=== PATIENT | male | born 1960 | race African-American/Black ===

== ENCOUNTER 2018-03-19 08:24 | Inpatient (IN) | payer OTHER ==
[2018-03-19 08:53] VITALS: BMI 33.3
--- NOTE | 2018-03-19 09:41 | HP ---
CIWA Score - CIWA Score Nausea/Vomitin Muscle Tremors: 3 Anxiety: 2 Agitation: 2 Paroxysmal Sweats: 1-Minimal Palms Moist Orientation: 0-Oriented Tacttile Disturbances: 2-Mild Itch/Numbness/Burn Auditory Disturbances: 1-Very Mild Visual Disturbances: 1-Very Mild Sensitivity Headache: 2-Mild CIWA-Ar Total Score: 17 Admission ROS BHS - HPI Chief Complaint: i need help to stop drinking alcohol,pcp,and heroin abused Allergies/Adverse Reactions: Allergies Allergy/AdvReac Type Severity Reaction Status Date / Time No Known Allergies Allergy Verified 03/19/18 09:25 History of Present Illness: this 58 years old male with alcohol and pcp dependence and heroin abused, seeking detox,hase been attending out patient program, withdrawal symptom,last treatment at [facility] in 11/09 not completed borderlined htn no med nicotine dependence no significant period of sobriety bipolar disorder,no medication Exam Limitations: No Limitations - Ebola screening Have you traveled outside of the country in the last 21 days: No Have you had contact with anyone from an Ebola affected area: No Have you been sick,other than usual withdrawal symptoms: No Do you have a fever: No - Review of Systems Constitutional: Chills, Loss of Appetite, Malaise, Night Sweats, Changes in sleep, Weakness EENT: reports: Nose Congestion Respiratory: reports: No Symptoms reported Cardiac: reports: Palpitations GI: reports: Diarrhea, Nausea, Abdominal cramping : reports: No Symptoms Reported Musculoskeletal: reports: Back Pain, Joint Pain, Muscle Pain Integumentary: reports: Dryness Neuro: reports: Headache, Tremors Endocrine: reports: No Symptoms Reported Hematology: reports: No Symptoms Reported Psychiatric: reports: Judgement Intact, Mood/Affect Appropiate, Orientated x3 ( bipolar disorder), Anxious, Depressed Patient History - Patient Medical History Hx Anemia: No Hx Asthma: No Hx Chronic Obstructive Pulmonary Disease (COPD): No Hx Cancer: No Hx Cardiac Disorders: No Hx Congestive Heart Failure: No Hx Hypertension: Yes (not on meds) Hx Hypercholesterolemia: No Hx Pacemaker: No HX Cerebrovascular Accident: No Hx Seizures: No Hx Dementia: No Hx Diabetes: No Hx Gastrointestinal Disorders: No Hx Liver Disease: No Hx Genitourinary Disorders: No Hx Sexually Transmitted Disorders: No Hx Renal Disease (ESRD): No Hx Thyroid Disease: No Hx Human Immunodeficiency Virus (HIV): No (NEGATIVE HX last 2016) Hx Hepatitis C: No Hx Depression: Yes (no meds) Hx Suicide Attempt: No (DENIES) Hx Bipolar Disorder: Yes Hx Schizophrenia: No Other Medical History: no suicidal,no homicidal, - Patient Surgical History Past Surgical History: No Hx Neurologic Surgery: No Hx Cataract Extraction: No Hx Cardiac Surgery: No Hx Lung Surgery: No Hx Breast Surgery: No Hx Breast Biopsy: No Hx Abdominal Surgery: No Hx Appendectomy: No Hx Cholecystectomy: No Hx Genitourinary Surgery: No Hx Section: No Hx Orthopedic Surgery: No Anesthesia Reaction: No - PPD History Date: 09/23/16 ([facility]) Results: 0 mm PPD to be Administered?: Yes - Smoking Cessation Smoking history: Current every day smoker Have you smoked in the past 12 months: Yes Aproximately how many cigarettes per day: 20 Hx Chewing Tobacco Use: No Initiated information on smoking cessation: Yes 'Breaking Loose' booklet given: 03/19/18 - Substance & Tx. History Hx Alcohol Use: Yes Hx Substance Use: Yes Substance Use Type: Alcohol, Opiates Hx Substance Use Treatment: Yes (promtoma 10/10 not completed) - Substances Abused Alcohol-beer Route: Oral Frequency: Daily Amount used: 1 case Age of first use: 12 Date of Last Use: 03/17/18 Heroin Route: Inhalation Frequency: 1-2 times per week Amount used: 2-3 bags Age of first use: 19 Date of Last Use: 03/17/18 PCP Route: Smoking Frequency: Daily Amount used: $20-30 Age of first use: 19 Date of Last Use: 03/17/18 Family Disease History - Family Disease History Family Disease History: Diabetes: Mother, Heart Disease: Mother, Other: Father ( alc and drugs ), Sister (alc and drugs ) Admission Physical Exam BHS - Vital Signs Vital Signs: Vital Signs - 24 hr 03/19/18 08:50 Temperature 97.7 F Pulse Rate 81 Respiratory 19 Rate Blood Pressure 144/82 - Physical General Appearance: Yes: Moderate Distress, Tremorous, Irritable, Sweating, Anxious HEENTM: Yes: Hearing grossly Normal, YANET, Pharynx Normal Respiratory: Yes: Lungs Clear, Normal Breath Sounds, No Respiratory Distress Neck: Yes: Within Normal Limits, Supple, Trachea in good position Breast: Yes: Breast Exam Deferred Cardiology: Yes: Within Normal Limits, Regular Rhythm, Regular Rate, S1, S2 Abdominal: Yes: Within Normal Limits, Normal Bowel Sounds, Non Tender, Flat, Soft Genitourinary: Yes: Within Normal Limits Back: Yes: Within Normal Limits, Normal Inspection, Muscle Spasm Musculoskeletal: Yes: Joint Stiffness, Muscle Pain Extremities: Yes: Tremors Neurological: Yes: lip cutter and scorer II-XII NML intact, Fully Oriented, Alert, Motor Strength 5/5 Integumentary: Yes: Dry Lymphatic: Yes: Within Normal Limits - Diagnostic (1) Alcohol dependence with uncomplicated withdrawal Current Visit: No Status: Chronic (2) PCP (phencyclidine) abuse Current Visit: Yes Status: Acute (3) Nicotine dependence Current Visit: No Status: Acute Qualifiers: Nicotine product type: cigarettes Substance use status: in withdrawal Qualified Code(s): F17.213 - Nicotine dependence, cigarettes, with withdrawal (4) Heroin abuse Current Visit: Yes Status: Acute (5) Hypertension Current Visit: Yes Status: Acute (6) Bipolar disorder Current Visit: Yes Status: Acute Cleared for Admission [facility] - Detox or Rehab [facility] Level of Care: Medically Managed Detox Regimen/Protocol: Librium (patient use heroin twice a week,did not want methadone) [facility] Breath Alcohol Content Breath Alcohol Content: 0 Urine Drug Screen - Results Drug Screen Negative: No Urine Drug Screen Results: OPI-Opiates
[2018-03-19] MEDS ORDERED: guaiFENesin/D-METHORPHAN HB 10 ML UNIT-DOSE CUPS PO PRN (09:49)
[2018-03-19] MEDS ORDERED: hydrOXYzine PAMOATE 50 MG CAPSULE (FP) PO PRN (09:49)
[2018-03-19] MEDS ORDERED: ACETAMINOPHEN 325 MG TABLET (FP) PO PRN (09:49)
[2018-03-19] MEDS ORDERED: MAGNESIUM CITRATE 300 ML BOTTLE PO PRN (09:49)
[2018-03-19] MEDS ORDERED: MAGNESIUM HYDROX 2400MG/30ML ORAL SUSPENSION 30 ML CUP PO PRN (09:49)
[2018-03-19] MEDS ORDERED: chlordiazePOXIDE HCL 25 MG CAPSULE PO PRN (09:49)
[2018-03-19] MEDS ORDERED: P-EPHED 60MG/TRIPROLIDI 2.5MG TABLET PO PRN (09:49)
[2018-03-19] MEDS ORDERED: IBUPROFEN 400 MG TABLET (FP) PO PRN (09:49)
[2018-03-19] MEDS ORDERED: MAG HYDROX/AL HYDROX/SIMETH 30 ML UNIT-DOSE CUP PO PRN (09:49)
[2018-03-19] MEDS ORDERED: MENTHOL/PHENOL 1 EACH UD MM PRN (09:49)
[2018-03-19] MEDS ORDERED: LOPERAMIDE HCL 2 MG CAPSULE PO PRN (09:49)
[2018-03-19] MEDS: chlordiazePOXIDE HCL 25 MG CAPSULE PO SCH ×3 (11:44→23:06)
[2018-03-19] MEDS: PRENATAL VITAMINS W/ FOLIC ACID TABLET (FP) PO SCH (11:45)
[2018-03-19 18:01] LABS: URINE APPEARANCE CLEAR; URINE BILIRUBIN NEGATIVE (<2.0 mg/dL); URINE COLOR LTYELLOW; URINE GLUCOSE (UA) NEGATIVE (NEGATIVE); URINE KETONE NEGATIVE (NEGATIVE); URINE LEUK ESTERASE NEGATIVE (NEGATIVE); URINE NITRITE NEGATIVE (NEGATIVE); URINE PROTEIN NEGATIVE (NEGATIVE); URINE UROBILINOGEN NEGATIVE mg/dL (0.2-1.0)
--- NOTE | 2018-03-19 18:10 | EKG ---
Test Reason : Blood Pressure : / mmHG Vent. Rate : 062 BPM Atrial Rate : 062 BPM P-R Int : 134 ms QRS Dur : 108 ms QT Int : 444 ms P-R-T Axes : 009 100 091 degrees QTc Int : 450 ms NORMAL SINUS RHYTHM RIGHTWARD AXIS BORDERLINE ECG WHEN COMPARED WITH ECG OF 29-MAR-2017 08:56, T WAVE VARIATION Confirmed by RONNELL OWEN MD ([id number]) on 03/19/2018 6:09:57 PM Referred By: Confirmed By:RONNELL OWEN MD
[2018-03-19] MEDS ORDERED: MELATONIN 5 MG TABLETS PO PRN (22:00)
[2018-03-19] MEDS: THIAMINE HCL 100 MG TABLET (FP) PO SCH (23:06)
[2018-03-20] MEDS: chlordiazePOXIDE HCL 25 MG CAPSULE PO SCH ×4 (06:38→23:13)
--- NOTE | 2018-03-20 09:44 | CONSULT ---
[facility] Psychiatric Consult - Data Date of interview: 03/20/18 Admission source: [facility] Identifying data: Patient is a 58 year old single male, unemployed, and currently homeless. This is one of multiple admissions for patient. Pt. admitted to for alcohol and opiate dependence. Substance Abuse History: - Smoking Cessation. Smoking history: Current every day smoker. Have you smoked in the past 12 months: Yes. Aproximately how many cigarettes per day: 20. Hx Chewing Tobacco Use: No. Initiated information on smoking cessation: Yes. 'Breaking Loose' booklet given: 03/19/18. - Substance & Tx. History. Hx Alcohol Use: Yes. Hx Substance Use: Yes. Substance Use Type : Alcohol, Opiates. Hx Substance Use Treatment: Yes (promeza 10/10 not completed). - Substances Abused. Alcohol-beer. Route: Oral. Frequency: Daily. Amount used: 1 case. Age of first use: 12. Date of Last Use: . Heroin. Route: Inhalation. Frequency: 1-2 times per week. Amount used : 2-3 bags. Age of first use: 19. Date of Last Use: 03/17/18. PCP. Route : Smoking. Frequency: Daily. Amount used: $20-30. Age of first use: 19. Date of Last Use: 03/17/18 Medical History: hypertension. Psychiatric History: Patient presents as guarded and slightly irritable. Pt. denies h/o psychiatric hospitalization. Mr. Royal was receiving outpatient psychiatric care from Dr. Stephens at the [facility]. As per pharmacy claims , an electronic prescription of seroquel 200mg + trazodone 50mg was sent to patient's pharmacy on 11/07/17 Pt. is noncompliant with [employer]. Reports most recently accepting medications in October 2017 and is refusing to restart medications today. Patient denies h/o suicide attempt. Physical/Sexual Abuse/Trauma History: denies. Mental Status Exam - Mental Status Exam Alert and Oriented to: Time, Place, Person Cognitive Function: Good Patient Appearance: Well Groomed Mood: Withdrawn, Irritable (slightly irritable. ) Affect: Mood Congruent Patient Behavior: Guarded, Cooperative Speech Pattern: Appropriate Voice Loudness: Moderately Soft/Quiet Thought Process: Goal Oriented Thought Disorder: Not Present Hallucinations: Denies Homicidal Ideation: Denies Insight/Judgement: Poor Sleep: Fair Appetite: Fair Muscle strength/Tone: Normal Gait/Station: Other (Did not observe patient's gait.) Psychiatric Findings - Problem List ([place] 1, 2,3) (1) Substance induced mood disorder Current Visit: Yes Status: Acute (2) PCP (phencyclidine) abuse Current Visit: Yes Status: Acute (3) Nicotine dependence Current Visit: Yes Status: Chronic Qualifiers: Nicotine product type: cigarettes Substance use status: in withdrawal Qualified Code(s): F17.213 - Nicotine dependence, cigarettes, with withdrawal (4) Alcohol dependence with uncomplicated withdrawal Current Visit: Yes Status: Acute (5) Opiate dependence Current Visit: Yes Status: Acute - Initial Treatment Plan Initial Treatment Plan: Psychoeducation provided. Detoxification in progress. Observation.
[2018-03-20 10:46] LABS: HEMATOCRIT 47.1 % (35.4-49); HEMOGLOBIN 14.8 GM/dL (11.7-16.9); MCH 25.8 pg (25.7-33.7); MCHC 31.4 g/dl (32.0-35.9); MEAN CELL VOLUME 81.9 fl (80-96); MEAN PLT VOLUME 8.4 fl (7.5-11.1); PLATELET COUNT 222 K/MM3 (134-434); RBC 5.75 M/mm3 (4.00-5.60); RDW 15.5 % (11.9-15.9); WHITE BLOOD COUNT 7.4 K/mm3 (4.0-10.0)
[2018-03-20] MEDS: PRENATAL VITAMINS W/ FOLIC ACID TABLET (FP) PO SCH (10:52)
[2018-03-20 11:44] LABS: ALBUMIN 3.8 g/dl (3.4-5.0); ALK PHOS 84 U/L (45-117); ANION GAP 9 MMOL/L (8-16); BILIRUBIN,TOTAL 0.3 mg/dL (0.2-1); BLOOD UREA NITROGEN 11 mg/dL (7-18); CALCIUM 9.5 mg/dL (8.5-10.1); CHLORIDE 107 mmol/L (98-107); CO2 24 mmol/L (21-32); GLUCOSE,RANDOM 97 mg/dL (74-106); SGOT/AST 20 U/L (15-37); SGPT/ALT 26 U/L (13-61); SODIUM 141 mmol/L (136-145); TOT PROT 7.7 g/dl (6.4-8.2)
[2018-03-20 11:47] LABS: POTASSIUM 6.9 mmol/L (3.5-5.1)
--- NOTE | 2018-03-20 17:14 | PN ---
S CIWA - CIWA Score Nausea/Vomitin-Mild Nausea/No Vomiting Muscle Tremors: 4-Moderate,w/Arms Extend Anxiety: 3 Agitation: 4-Moderately Restless Paroxysmal Sweats: 1-Minimal Palms Moist Orientation: 0-Oriented Tacttile Disturbances: 0-None Auditory Disturbances: 0-None Visual Disturbances: 0-None Headache: 1-Very Mild CIWA-Ar Total Score: 14 BHS Progress Note (SOAP) Subjective: tremor headache sweat anxiety Objective: 03/20/18 17:12 Vital Signs Temperature 98.6 F 03/20/18 13:07 Pulse Rate 78 03/20/18 13:07 Respiratory Rate 18 03/20/18 13:07 Blood Pressure 137/77 03/20/18 13:07 O2 Sat by Pulse Oximetry (%) Laboratory Last Values WBC 7.4 K/mm3 (4.0-10.0) 03/20/18 06:00 RBC 5.75 M/mm3 (4.00-5.60) H 03/20/18 06:00 Hgb 14.8 GM/dL (11.7-16.9) 03/20/18 06:00 Hct 47.1 % (35.4-49) 03/20/18 06:00 MCV 81.9 fl (80-96) 03/20/18 06:00 MCH 25.8 pg (25.7-33.7) 03/20/18 06:00 MCHC 31.4 g/dl (32.0-35.9) L 03/20/18 06:00 RDW 15.5 % (11.9-15.9) 03/20/18 06:00 Plt Count 222 K/MM3 (134-434) 03/20/18 06:00 MPV 8.4 fl (7.5-11.1) 03/20/18 06:00 Sodium 141 mmol/L (136-145) 03/20/18 06:00 Potassium 6.9 mmol/L (3.5-5.1) H* 03/20/18 06:00 Chloride 107 mmol/L (98-107) 03/20/18 06:00 Carbon Dioxide 24 mmol/L (21-32) 03/20/18 06:00 Anion Gap 9 MMOL/L (8-16) 03/20/18 06:00 BUN 11 mg/dL (7-18) 03/20/18 06:00 Creatinine 1.0 mg/dL (0.55-1.3) 03/20/18 06:00 Creat Clearance w eGFR > 60 (>60) 03/20/18 06:00 Random Glucose 97 mg/dL (74-106) 03/20/18 06:00 Calcium 9.5 mg/dL (8.5-10.1) 03/20/18 06:00 Total Bilirubin 0.3 mg/dL (0.2-1) 03/20/18 06:00 AST 20 U/L (15-37) 03/20/18 06:00 ALT 26 U/L (13-61) 03/20/18 06:00 Alkaline Phosphatase 84 U/L (45-117) 03/20/18 06:00 Total Protein 7.7 g/dl (6.4-8.2) 03/20/18 06:00 Albumin 3.8 g/dl (3.4-5.0) 03/20/18 06:00 Urine Color Ltyellow 03/19/18 12:08 Urine Appearance Clear 03/19/18 12:08 Urine pH 5.0 (5.0-8.0) 03/19/18 12:08 Ur Specific [place] 1.016 (1.001-1.035) 03/19/18 12:08 Urine Protein Negative (NEGATIVE) 03/19/18 12:08 Urine Glucose (UA) Negative (NEGATIVE) 03/19/18 12:08 Urine Ketones Negative (NEGATIVE) 03/19/18 12:08 Urine Blood Negative (NEGATIVE) 03/19/18 12:08 Urine Nitrite Negative (NEGATIVE) 03/19/18 12:08 Urine Bilirubin Negative (<2.0 mg/dL) 03/19/18 12:08 Urine Urobilinogen Negative mg/dL (0.2-1.0) 03/19/18 12:08 Ur Leukocyte Esterase Negative (NEGATIVE) 03/19/18 12:08 RPR Titer Nonreactive (NONREACTIVE) 03/20/18 06:00 lab noted repeat K+ Assessment: 03/20/18 17:14 withdrawal sx elevation K+ Plan: continue detox kayexalate x 1 repeat K+
[2018-03-20] MEDS ORDERED: SODIUM POLYSTYRENE SULFONATE 15 GM/60 ML BOTTLE PO ONE (17:15)
[2018-03-20 19:00] VITALS: TEMP 98.2
[2018-03-20] MEDS: THIAMINE HCL 100 MG TABLET (FP) PO SCH (23:13)
[2018-03-21] MEDS: chlordiazePOXIDE HCL 25 MG CAPSULE PO SCH (06:00)
[2018-03-21 09:30] VITALS: BP 143/72; PULSE 81
--- NOTE | 2018-03-21 10:47 | DS ---
[facility] Detox Discharge Summary Admission Date: 03/19/18 Discharge Date: 03/21/18 - History Present History: Alcohol Dependence Additional Comments: 58 years old male admitted 03/19/18 for alcohol withdrawal sx patient insists to leave the detox unit refuses to discuss aftercare with the hand sign writer nor counselor patient walked out the unit, security informed, patient met with the security and safely out the facility. - Physical Exam Results Vital Signs: Vital Signs Temperature 98.2 F 03/21/18 09:29 Pulse Rate 81 03/21/18 09:29 Respiratory Rate 18 03/21/18 09:29 Blood Pressure 143/72 03/21/18 09:29 O2 Sat by Pulse Oximetry (%) Pertinent Admission Physical Exam Findings: alcohol withdrawal sx Vital Signs Temperature 98.2 F 03/21/18 09:29 Pulse Rate 81 03/21/18 09:29 Respiratory Rate 18 03/21/18 09:29 Blood Pressure 143/72 03/21/18 09:29 O2 Sat by Pulse Oximetry (%) Laboratory Last Values WBC 7.4 K/mm3 (4.0-10.0) 03/20/18 06:00 RBC 5.75 M/mm3 (4.00-5.60) H 03/20/18 06:00 Hgb 14.8 GM/dL (11.7-16.9) 03/20/18 06:00 Hct 47.1 % (35.4-49) 03/20/18 06:00 MCV 81.9 fl (80-96) 03/20/18 06:00 MCH 25.8 pg (25.7-33.7) 03/20/18 06:00 MCHC 31.4 g/dl (32.0-35.9) L 03/20/18 06:00 RDW 15.5 % (11.9-15.9) 03/20/18 06:00 Plt Count 222 K/MM3 (134-434) 03/20/18 06:00 MPV 8.4 fl (7.5-11.1) 03/20/18 06:00 Sodium 141 mmol/L (136-145) 03/20/18 06:00 Potassium 4.2 mmol/L (3.5-5.1) 03/20/18 17:00 Chloride 107 mmol/L (98-107) 03/20/18 06:00 Carbon Dioxide 24 mmol/L (21-32) 03/20/18 06:00 Anion Gap 9 MMOL/L (8-16) 03/20/18 06:00 BUN 11 mg/dL (7-18) 03/20/18 06:00 Creatinine 1.0 mg/dL (0.55-1.3) 03/20/18 06:00 Creat Clearance w eGFR > 60 (>60) 03/20/18 06:00 Random Glucose 97 mg/dL (74-106) 03/20/18 06:00 Calcium 9.5 mg/dL (8.5-10.1) 03/20/18 06:00 Total Bilirubin 0.3 mg/dL (0.2-1) 03/20/18 06:00 AST 20 U/L (15-37) 03/20/18 06:00 ALT 26 U/L (13-61) 03/20/18 06:00 Alkaline Phosphatase 84 U/L (45-117) 03/20/18 06:00 Total Protein 7.7 g/dl (6.4-8.2) 03/20/18 06:00 Albumin 3.8 g/dl (3.4-5.0) 03/20/18 06:00 Urine Color Ltyellow 03/19/18 12:08 Urine Appearance Clear 03/19/18 12:08 Urine pH 5.0 (5.0-8.0) 03/19/18 12:08 Ur Specific [place] 1.016 (1.001-1.035) 03/19/18 12:08 Urine Protein Negative (NEGATIVE) 03/19/18 12:08 Urine Glucose (UA) Negative (NEGATIVE) 03/19/18 12:08 Urine Ketones Negative (NEGATIVE) 03/19/18 12:08 Urine Blood Negative (NEGATIVE) 03/19/18 12:08 Urine Nitrite Negative (NEGATIVE) 03/19/18 12:08 Urine Bilirubin Negative (<2.0 mg/dL) 03/19/18 12:08 Urine Urobilinogen Negative mg/dL (0.2-1.0) 03/19/18 12:08 Ur Leukocyte Esterase Negative (NEGATIVE) 03/19/18 12:08 RPR Titer Nonreactive (NONREACTIVE) 03/20/18 06:00 lab noted - Treatment Hospital Course: Detox Protocol Followed, Responded well Patient has Accepted a Rehab Referral to: new focus - Medication Discharge Medications: Ambulatory Orders NK [No Known Home Medication] 03/19/18 - Diagnosis (1) Alcohol dependence with uncomplicated withdrawal Status: Acute (2) Encounter for HIV (human immunodeficiency virus) test Status: Chronic (3) Encounter for hepatitis C virus screening test for high risk patient Status: Chronic (4) Hypertension Status: Chronic Qualifiers: Hypertension type: essential hypertension Qualified Code(s): I10 - Essential (primary) hypertension (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
[2018-03-21] MEDS ORDERED: chlordiazePOXIDE 5 MG CAPSULE PO SCH (11:00)
[2018-03-22] MEDS ORDERED: chlordiazePOXIDE HCL 10 MG CAPSULE PO SCH (11:00)
== END 2018-03-21 10:47 | disposition left against medical advice (07) | DRG 770 ==
LOC: YASAS 08:24 → Y6N 10:34
PROC: HZ2ZZZZ Detoxification Services for Substance Abuse Treatment (ICD-10-PCS; principal; 2018-03-19)
DX: F10.230 Alcohol dependence with withdrawal, uncomplicated (principal); F11.20 Opioid dependence, uncomplicated; F16.10 Hallucinogen abuse, uncomplicated; F17.213 Nicotine dependence, cigarettes, with withdrawal; F19.24 Other psychoactive substance dependence with psychoactive substance-induced mood disorder; F31.9 Bipolar disorder, unspecified; F32.9 Major depressive disorder, single episode, unspecified; E87.5 Hyperkalemia; E11.9 Type 2 diabetes mellitus without complications; Z79.84 Long term (current) use of oral hypoglycemic drugs; I10 Essential (primary) hypertension; Z11.4 Encounter for screening for human immunodeficiency virus [HIV]; Z11.59 Encounter for screening for other viral diseases
CPT/HCPCS: 36415; 80053; 81003; 84132; 85027; 86593; 93005; 93010

== ENCOUNTER 2018-07-05 09:44 | Inpatient (IN) | payer OTHER ==
[2018-07-05 10:52] VITALS: BMI 27.3
--- NOTE | 2018-07-05 14:14 | HP ---
CIWA Score Nausea/Vomitin Muscle Tremors: 2 Anxiety: 2 Agitation: 2 Paroxysmal Sweats: 1-Minimal Palms Moist Orientation: 0-Oriented Tacttile Disturbances: 1-Very Mild Itch/Numbness Auditory Disturbances: 1-Very Mild Visual Disturbances: 0-None Headache: 2-Mild CIWA-Ar Total Score: 13 - Admission Criteria [facility] Guidelines: Admission for Medically Managed Detox: Requires at least one of the followin. CIWA greater than 12 2. Seizures within the past 24 hours 3. Delirium tremens within the past 24 hours 4. Hallucinations within the past 24 hours 5. Acute intervention needed for co occurring medical disorder 6. Acute intervention needed for co occurring psychiatric disorder 7. Severe withdrawal that cannot be handled at a lower level of care (continued vomiting, continued diarrhea, abnormal vital signs) requiring intravenous medication and/or fluids 8. Patient presents the following: CIWA greater than 12 Admission Criteria Met: Admission criteria met Admission ROS S - [facility] Chief Complaint: i need help to stop drinking alcohol dependence,heroin and pcp abused, withdrawal symptom,requested detox,last detox 03/19/18 to 03/21/18 not completed nicotine dependence no significant period of sobriety Allergies/Adverse Reactions: Allergies Allergy/AdvReac Type Severity Reaction Status Date / Time No Known Allergies Allergy Verified 07/05/18 13:31 History of Present Illness: this 58 years old male with alcohol dependence,heroin,pcp abused,seeking detox, withdrawal symptom, as mentioned above previous admission before last detox 03/19/18 to 03/21/18 not completed - Ebola screening Have you traveled outside of the country in the last 21 days: No Have you had contact with anyone from an Ebola affected area: No Have you been sick,other than usual withdrawal symptoms: No Do you have a fever: No - Review of Systems Constitutional: Loss of Appetite, Malaise, Night Sweats, Changes in sleep, Weakness EENT: reports: Nose Congestion Respiratory: reports: No Symptoms reported GI: reports: Nausea, Vomiting, Abdominal cramping : reports: No Symptoms Reported Musculoskeletal: reports: Back Pain, Muscle Pain Integumentary: reports: Dryness Neuro: reports: Headache, Tremors Endocrine: reports: No Symptoms Reported Hematology: reports: No Symptoms Reported Psychiatric: reports: No Sypmtoms Reported, Judgement Intact, Mood/Affect Appropiate, Orientated x3 Other Systems: Reviewed and Negative Patient History - Patient Medical History Hx Anemia: No Hx Asthma: No Hx Chronic Obstructive Pulmonary Disease (COPD): No Hx Cancer: No Hx Cardiac Disorders: No Hx Congestive Heart Failure: No Hx Hypertension: Yes (not on meds) Hx Hypercholesterolemia: No Hx Pacemaker: No HX Cerebrovascular Accident: No Hx Seizures: No Hx Dementia: No Hx Diabetes: No Hx Gastrointestinal Disorders: No Hx Liver Disease: No Hx Genitourinary Disorders: No Hx Sexually Transmitted Disorders: No Hx Renal Disease (ESRD): No Hx Thyroid Disease: No Hx Human Immunodeficiency Virus (HIV): No (NEGATIVE HX last 2016 ) Hx Hepatitis C: No Hx Depression: Yes (no meds) Hx Suicide Attempt: No (DENIES) Hx Bipolar Disorder: Yes Hx Schizophrenia: No Other Medical History: no suicidal,no homicidal - Patient Surgical History Past Surgical History: No Hx Neurologic Surgery: No Hx Cataract Extraction: No Hx Cardiac Surgery: No Hx Lung Surgery: No Hx Breast Surgery: No Hx Breast Biopsy: No Hx Abdominal Surgery: No Hx Appendectomy: No Hx Cholecystectomy: No Hx Genitourinary Surgery: No Hx Section: No Hx Orthopedic Surgery: No Anesthesia Reaction: No - PPD History Previous Implant?: Yes Documented Results: Negative w/o proof Implanted On Prior [facility] Admission?: Yes Date: 03/21/18 Results: not read PPD to be Administered?: Yes - Smoking Cessation Smoking history: Current every day smoker Have you smoked in the past 12 months: Yes Aproximately how many cigarettes per day: 20 Hx Chewing Tobacco Use: No Initiated information on smoking cessation: Yes 'Breaking Loose' booklet given: 07/05/18 - Substance & Tx. History Hx Alcohol Use: Yes Hx Substance Use: Yes Substance Use Type: Alcohol, Heroin Hx Substance Use Treatment: Yes ([facility] 03/19/18 to 03/01/18) - Substances Abused Alcohol Route: Oral Frequency: Daily Amount used: 3of 6 packs of beer 12 ozs Age of first use: 10 Date of Last Use: 07/05/18 Heroin Route: Inhalation Frequency: Daily Amount used: 5 bags Age of first use: 19 Date of Last Use: 07/04/18 PCP Route: Smoking Frequency: Daily Amount used: 5 bags Age of first use: 19 Date of Last Use: 07/05/18 Family Disease History - Family Disease History Family Disease History: Diabetes: Mother, Heart Disease: Mother, Other: Father ( alc and drugs ), Sister (alc and drugs ) Admission Physical Exam [facility] - Vital Signs Vital Signs: Vital Signs - 24 hr 07/05/18 10:48 Temperature 97.8 F Pulse Rate 76 Respiratory 18 Rate Blood Pressure 153/89 - Physical General Appearance: Yes: Moderate Distress, Tremorous, Irritable, Sweating, Anxious HEENTM: Yes: Normal ENT Inspection, YANET, Pharynx Normal Respiratory: Yes: Within Normal Limits, Normal Breath Sounds Neck: Yes: Within Normal Limits, Supple, Trachea in good position Breast: Yes: Within Normal Limits Cardiology: Yes: Regular Rhythm, Regular Rate, S1, S2 Abdominal: Yes: Normal Bowel Sounds, Non Tender, Flat, Soft Genitourinary: Yes: Within Normal Limits Back: Yes: Muscle Spasm Musculoskeletal: Yes: Back pain Extremities: Yes: Tremors Neurological: Yes: explosive operator grenade II-XII NML intact, Fully Oriented, Alert, Motor Strength 5/5 Integumentary: Yes: Dry Lymphatic: Yes: Within Normal Limits - Diagnostic (1) Alcohol dependence with uncomplicated withdrawal Current Visit: No Status: Acute (2) Bipolar disorder Current Visit: No Status: Acute (3) Heroin abuse Current Visit: No Status: Acute (4) PCP (phencyclidine) abuse Current Visit: No Status: Acute (5) Nicotine dependence Current Visit: No Status: Chronic Qualifiers: Nicotine product type: cigarettes Substance use status: in withdrawal Qualified Code(s): F17.213 - Nicotine dependence, cigarettes, with withdrawal Cleared for Admission [facility] - Detox or Rehab [facility] Level of Care: Medically Managed Detox Regimen/Protocol: Librium [facility] Breath Alcohol Content Breath Alcohol Content: 0 Urine Drug Screen - Results Drug Screen Negative: Yes
[2018-07-05] MEDS ORDERED: hydrOXYzine PAMOATE 50 MG CAPSULE (FP) PO PRN (14:28)
[2018-07-05] MEDS ORDERED: IBUPROFEN 400 MG TABLET (FP) PO PRN (14:28)
[2018-07-05] MEDS ORDERED: guaiFENesin/D-METHORPHAN HB 10 ML UNIT-DOSE CUPS PO PRN (14:28)
[2018-07-05] MEDS ORDERED: MAG HYDROX/AL HYDROX/SIMETH 30 ML UNIT-DOSE CUP PO PRN (14:28)
[2018-07-05] MEDS ORDERED: chlordiazePOXIDE HCL 25 MG CAPSULE PO PRN (14:28)
[2018-07-05] MEDS ORDERED: MAGNESIUM HYDROX 2400MG/30ML ORAL SUSPENSION 30 ML CUP PO PRN (14:28)
[2018-07-05] MEDS ORDERED: P-EPHED 60MG/TRIPROLIDI 2.5MG TABLET PO PRN (14:28)
[2018-07-05] MEDS ORDERED: ACETAMINOPHEN 325 MG TABLET (FP) PO PRN (14:28)
[2018-07-05] MEDS ORDERED: LOPERAMIDE HCL 2 MG CAPSULE PO PRN (14:28)
[2018-07-05] MEDS ORDERED: MAGNESIUM CITRATE 300 ML BOTTLE PO PRN (14:28)
[2018-07-05] MEDS ORDERED: MENTHOL/PHENOL 1 EACH UD MM PRN (14:28)
[2018-07-05] MEDS ORDERED: NICOTINE POLACRILEX 2 MG GUM BUC PRN (14:28)
[2018-07-05] MEDS ORDERED: CYCLOBENZAPRINE HCL 10 MG TABLET (FP) PO PRN (14:31)
[2018-07-05 17:08] LABS: URINE APPEARANCE CLEAR; URINE BILIRUBIN NEGATIVE (<2.0 mg/dL); URINE COLOR YELLOW; URINE GLUCOSE (UA) NEGATIVE (NEGATIVE); URINE KETONE NEGATIVE (NEGATIVE); URINE LEUK ESTERASE NEGATIVE (NEGATIVE); URINE NITRITE NEGATIVE (NEGATIVE); URINE PROTEIN NEGATIVE (NEGATIVE); URINE UROBILINOGEN NEGATIVE mg/dL (0.2-1.0)
[2018-07-05] MEDS: chlordiazePOXIDE HCL 25 MG CAPSULE PO SCH ×2 (17:48→22:29)
[2018-07-05] MEDS ORDERED: cloNIDine HCL 0.1 MG TABLET PO SCH (22:00)
[2018-07-05] MEDS ORDERED: THIAMINE HCL 100 MG TABLET (FP) PO SCH (22:00)
[2018-07-05] MEDS ORDERED: MELATONIN 5 MG TABLETS PO PRN (22:00)
[2018-07-06] MEDS: chlordiazePOXIDE HCL 25 MG CAPSULE PO SCH (07:09)
[2018-07-06 09:35] VITALS: BP 124/94; PULSE 82; TEMP 98.2
[2018-07-06] MEDS ORDERED: PRENATAL VITAMINS W/ FOLIC ACID TABLET (FP) PO SCH (10:00)
[2018-07-06 10:21] LABS: HEMATOCRIT 45.9 % (35.4-49); HEMOGLOBIN 14.2 GM/dL (11.7-16.9); MCH 25.4 pg (25.7-33.7); MCHC 30.9 g/dl (32.0-35.9); MEAN CELL VOLUME 82.3 fl (80-96); MEAN PLT VOLUME 8.6 fl (7.5-11.1); PLATELET COUNT 165 K/MM3 (134-434); RBC 5.57 M/mm3 (4.00-5.60); RDW 15.7 % (11.9-15.9); WHITE BLOOD COUNT 6.2 K/mm3 (4.0-10.0)
[2018-07-06 10:44] LABS: ALBUMIN 3.4 g/dl (3.4-5.0); ALK PHOS 100 U/L (45-117); ANION GAP 7 MMOL/L (8-16); BILIRUBIN,TOTAL 0.3 mg/dL (0.2-1); BLOOD UREA NITROGEN 15 mg/dL (7-18); CALCIUM 8.6 mg/dL (8.5-10.1); CHLORIDE 107 mmol/L (98-107); CO2 28 mmol/L (21-32); GLUCOSE,RANDOM 81 mg/dL (74-106); POTASSIUM 4.4 mmol/L (3.5-5.1); SGOT/AST 27 U/L (15-37); SGPT/ALT 33 U/L (13-61); SODIUM 141 mmol/L (136-145); TOT PROT 7.4 g/dl (6.4-8.2)
--- NOTE | 2018-07-06 12:02 | CONSULT ---
[facility] Psychiatric Consult - Data Date of interview: 07/06/18 Admission source: [facility] Identifying data: Patient signed out of detox. Patient not seen by com writer.
--- NOTE | 2018-07-06 12:41 | PN ---
[facility] Progress Note Note: pt states he came in and said he only said he drinks to get a bed. pt states he is not an alcoholic and wants to go to a methadone program. Pt became very aggressive and wanted to be left alone. a consultation with medical and counseling and along with management was held to offer pt an alternative with either rehab or out patient mmtp program. pt was considering it. Later on pt decided to sign out AMA and refused the plan that was being put in place.
--- NOTE | 2018-07-06 12:42 | DS ---
[facility] Detox Discharge Summary Admission Date: 07/05/18 - History Present History: Alcohol Dependence, Opioid Dependence - Physical Exam Results Vital Signs: Vital Signs Temperature 98.2 F 07/06/18 09:35 Pulse Rate 82 07/06/18 09:35 Respiratory Rate 18 07/06/18 09:35 Blood Pressure 124/94 07/06/18 09:35 O2 Sat by Pulse Oximetry (%) - Treatment Hospital Course: Discharged Condition Good - Medication Discharge Medications: Ambulatory Orders NK [No Known Home Medication] 03/19/18 - AMA Did Patient Leave Against Medical Advice: Yes
[2018-07-06] MEDS ORDERED: chlordiazePOXIDE HCL 25 MG CAPSULE PO SCH (17:00)
[2018-07-07] MEDS ORDERED: chlordiazePOXIDE 5 MG CAPSULE PO SCH (17:00)
[2018-07-08] MEDS ORDERED: chlordiazePOXIDE HCL 10 MG CAPSULE PO SCH (17:00)
== END 2018-07-06 12:01 | disposition left against medical advice (07) | DRG 770 ==
LOC: YASAS 09:44 → Y6N 14:37
PROC: HZ2ZZZZ Detoxification Services for Substance Abuse Treatment (ICD-10-PCS; principal; 2018-07-05)
DX: F10.230 Alcohol dependence with withdrawal, uncomplicated (principal); F11.10 Opioid abuse, uncomplicated; F16.10 Hallucinogen abuse, uncomplicated; F17.213 Nicotine dependence, cigarettes, with withdrawal; F31.9 Bipolar disorder, unspecified; I10 Essential (primary) hypertension
CPT/HCPCS: 36415; 80053; 81003; 85027; 86593; J0735

== ENCOUNTER 2018-09-02 20:53 | Inpatient (IN) | payer OTHER ==
[2018-09-02 21:42] VITALS: BMI 28.8
--- NOTE | 2018-09-02 22:55 | HP ---
CIWA Score Nausea/Vomitin Muscle Tremors: 3 Anxiety: 3 Agitation: 2 Paroxysmal Sweats: 3 Orientation: 0-Oriented Tacttile Disturbances: 0-None Auditory Disturbances: 0-None Visual Disturbances: 0-None Headache: 2-Mild CIWA-Ar Total Score: 16 - Admission Criteria OASAS Guidelines: Admission for Medically Managed Detox: Requires at least one of the followin. CIWA greater than 12 2. Seizures within the past 24 hours 3. Delirium tremens within the past 24 hours 4. Hallucinations within the past 24 hours 5. Acute intervention needed for co occurring medical disorder 6. Acute intervention needed for co occurring psychiatric disorder 7. Severe withdrawal that cannot be handled at a lower level of care (continued vomiting, continued diarrhea, abnormal vital signs) requiring intravenous medication and/or fluids 8. Admission ROS [facility] Chief Complaint: Heroin and alcohol withdrawal symptoms Allergies/Adverse Reactions: Allergies Allergy/AdvReac Type Severity Reaction Status Date / Time No Known Allergies Allergy Verified 09/02/18 21:43 History of Present Illness: 58 years old male with a long history of alcohol and heroin dependence is seeking admission to detox. Patient has been in previous detox and reports insignificant period of sobriety. He has left against medical advice in his last 2 admissions. Risks and consequences of his actions reinforced. Patient verbalized understanding and reports that he will complete this admission. He has medical history of gout, hypertension and depression. He denies history of diabetes. Denies suicide attempt and suicidal ideation at this time. Patient is on Methadone 60mg tablet oral daily at [facility]. Dose is yet to be confirmed by the nurse. Exam Limitations: No Limitations - Ebola screening Have you traveled outside of the country in the last 21 days: No (N) Have you had contact with anyone from an Ebola affected area: No Have you been sick,other than usual withdrawal symptoms: No Do you have a fever: No - Review of Systems Constitutional: Chills, Night Sweats EENT: reports: Sinus Pressure Respiratory: reports: No Symptoms reported Cardiac: reports: No Symptoms Reported GI: reports: Poor Appetite, Poor Fluid Intake, Vomiting, Abdominal cramping : reports: No Symptoms Reported Musculoskeletal: reports: Gout, Muscle Pain Integumentary: reports: Flushing Neuro: reports: Tremors Endocrine: reports: No Symptoms Reported Hematology: reports: No Symptoms Reported Psychiatric: reports: Anxious, Depressed Other Systems: Reviewed and Negative Patient History - Patient Medical History Hx Anemia: No Hx Asthma: No Hx Chronic Obstructive Pulmonary Disease (COPD): No Hx Cancer: No Hx Cardiac Disorders: No Hx Congestive Heart Failure: No Hx Hypertension: Yes (Not on medication) Hx Hypercholesterolemia: No Hx Pacemaker: No HX Cerebrovascular Accident: No Hx Seizures: Yes (Alcohol withdrawal related seizures) Hx Dementia: No Hx Diabetes: No Hx Gastrointestinal Disorders: No Hx Liver Disease: No Hx Genitourinary Disorders: No Hx Sexually Transmitted Disorders: No Hx Renal Disease (ESRD): No Hx Thyroid Disease: No Hx Human Immunodeficiency Virus (HIV): No (NEGATIVE HX last 2016 ) Hx Hepatitis C: No Hx Depression: Yes (Not on medication) Hx Suicide Attempt: No (Denies suicidal ideation at this time) Hx Bipolar Disorder: Yes Hx Schizophrenia: No - Patient Surgical History Past Surgical History: No Hx Neurologic Surgery: No Hx Cataract Extraction: No Hx Cardiac Surgery: No Hx Lung Surgery: No Hx Abdominal Surgery: No Hx Appendectomy: No Hx Cholecystectomy: No Hx Genitourinary Surgery: No Hx Section: No Hx Orthopedic Surgery: No Anesthesia Reaction: No - PPD History Previous Implant?: Yes (Not read because patient left AMA) Documented Results: Negative w/o proof Implanted On Prior R Admission?: Yes Date: 03/21/18 Results: not read PPD to be Administered?: Yes - Reproductive History Patient is a Female of Child Bearing Age (11 -55 yrs old): No (Male) - Smoking Cessation Smoking history: Current every day smoker Have you smoked in the past 12 months: Yes Aproximately how many cigarettes per day: 20 Hx Chewing Tobacco Use: No Initiated information on smoking cessation: Yes 'Breaking Loose' booklet given: 09/02/18 - Substance & Tx. History Hx Alcohol Use: Yes Hx Substance Use: Yes Substance Use Type: Alcohol, Heroin Hx Substance Use Treatment: Yes ([facility]) - Substances Abused Alcohol Route: Oral Frequency: Daily Amount used: 6 CAN BEER Age of first use: 13 Date of Last Use: 09/02/18 Heroin Route: SNIFF Frequency: 1-2 times per week Amount used: 2 BAgs Age of first use: 17 Date of Last Use: 09/02/18 Family Disease History - Family Disease History Family Disease History: Diabetes: Mother, Heart Disease: Mother, Other: Father ( alc and drugs ), Sister (alc and drugs ) Admission Physical Exam [facility] - Vital Signs Vital Signs: Vital Signs - 24 hr 09/02/18 21:29 Temperature 98.8 F Pulse Rate 105 H Respiratory 18 Rate Blood Pressure 133/81 - Physical General Appearance: Yes: Moderate Distress, Alcohol on Breath, Obese, Tremorous , Sweating, Anxious HEENTM: Yes: EOMI, Normal ENT Inspection, Normal Voice, YANET Respiratory: Yes: No Respiratory Distress Neck: Yes: Supple Breast: Yes: Breast Exam Deferred Cardiology: Yes: Tachycardia Abdominal: Yes: Normal Bowel Sounds Genitourinary: Yes: Within Normal Limits Back: Yes: Normal Inspection Musculoskeletal: Yes: Muscle Pain Extremities: Yes: Tremors Neurological: Yes: Alert, Normal Mood/Affect Integumentary: Yes: Warm Lymphatic: Yes: Within Normal Limits - Diagnostic (1) Depression Current Visit: Yes Status: Chronic Qualifiers: Depression Type: unspecified Qualified Code(s): F32.9 - Major depressive disorder, single episode, unspecified (2) Alcohol dependence with uncomplicated withdrawal Current Visit: Yes Status: Chronic (3) Opioid dependence on agonist therapy Current Visit: No Status: Chronic (4) PCP (phencyclidine) abuse Current Visit: Yes Status: Chronic (5) Hypertension Current Visit: Yes Status: Chronic Qualifiers: Hypertension type: essential hypertension Qualified Code(s): I10 - Essential (primary) hypertension (6) Methadone maintenance therapy patient Current Visit: Yes Status: Chronic Comment: 40 MG DAILY PENDING VERIFICATION. LAST DOSE TAKEN TODAY AT [facility], [address] [place] [address]. (7) Nicotine dependence Current Visit: Yes Status: Chronic Qualifiers: Nicotine product type: cigarettes Substance use status: uncomplicated Qualified Code(s): F17.210 - Nicotine dependence, cigarettes, uncomplicated (8) Phencyclidine dependence Current Visit: Yes Status: Chronic (9) Gouty arthropathy Current Visit: Yes Status: Chronic Comment: not medicated for a year as per hx. Cleared for Admission [facility] - Detox or Rehab [facility] Level of Care: Medically Managed Detox Regimen/Protocol: Librium Screened but not Admitted - Documentation of Visit Screened but not Admitted: No S Breath Alcohol Content Breath Alcohol Content: 0.130 Urine Drug Screen - Results Drug Screen Negative: No Urine Drug Screen Results: OPI-Opiates, MTD-Methadone Inpatient Rehab Admission - Rehab Decision to Admit Inpatient rehab admission?: No
[2018-09-02] MEDS ORDERED: MAGNESIUM CITRATE 300 ML BOTTLE PO PRN (23:23)
[2018-09-02] MEDS ORDERED: hydrOXYzine PAMOATE 25 MG CAPSULE (FP) PO PRN (23:23)
[2018-09-02] MEDS ORDERED: MAG HYDROX/AL HYDROX/SIMETH 30 ML UNIT-DOSE CUP PO PRN (23:23)
[2018-09-02] MEDS ORDERED: MELATONIN 5 MG TABLETS PO PRN (23:23)
[2018-09-02] MEDS ORDERED: BISMUTH SUBSALICYLATE 524 MG/30 ML UD PO PRN (23:23)
[2018-09-02] MEDS ORDERED: IBUPROFEN 400 MG TABLET (FP) PO PRN (23:23)
[2018-09-02] MEDS ORDERED: MENTHOL/PHENOL 1 EACH UD MM PRN (23:23)
[2018-09-02] MEDS ORDERED: NICOTINE POLACRILEX 2 MG GUM BUC PRN (23:23)
[2018-09-02] MEDS ORDERED: MAGNESIUM HYDROX 2400MG/30ML ORAL SUSPENSION 30 ML CUP PO PRN (23:23)
[2018-09-02] MEDS ORDERED: ACETAMINOPHEN 325 MG TABLET (FP) PO PRN ×2 (23:23)
[2018-09-02] MEDS ORDERED: chlordiazePOXIDE HCL 25 MG CAPSULE PO PRN (23:25)
[2018-09-02] MEDS: chlordiazePOXIDE HCL 25 MG CAPSULE PO SCH (23:59)
[2018-09-03] MEDS: chlordiazePOXIDE HCL 25 MG CAPSULE PO SCH ×4 (06:06→22:22)
[2018-09-03] MEDS ORDERED: METHADONE HCL 10 MG TABLET PO ONE (09:00)
[2018-09-03] MEDS ORDERED: METHADONE 40 MG, METHADONE 20 MG PO ONE (09:15)
[2018-09-03] MEDS ORDERED: METHADONE HCL 40 MG DISPERSABLE TABLET ONE (09:44)
[2018-09-03] MEDS ORDERED: METHADONE HCL 10 MG TABLET ONE (09:45)
[2018-09-03] MEDS: METHOCARBAMOL 500 MG TABLET PO PRN (10:55)
[2018-09-03] MEDS: PRENATAL VITAMINS W/ FOLIC ACID TABLET (FP) PO SCH (10:55)
[2018-09-03] MEDS: NICOTINE 14 MG/24 HOURS TOPICAL PATCH TD SCH (10:57)
--- NOTE | 2018-09-03 11:13 | PN ---
S CIWA - CIWA Score Nausea/Vomitin-No Nausea/No Vomiting Muscle Tremors: 4-Moderate,w/Arms Extend Anxiety: 3 Agitation: 3 Paroxysmal Sweats: 3 Orientation: 0-Oriented Tacttile Disturbances: 0-None Auditory Disturbances: 0-None Visual Disturbances: 0-None Headache: 1-Very Mild CIWA-Ar Total Score: 14 S Progress Note (SOAP) Subjective: sweats tired shakes interrupted sleep irritable Objective: 09/03/18 11:12 Vital Signs Temperature 98.6 F 09/03/18 09:46 Pulse Rate 71 09/03/18 09:46 Respiratory Rate 18 09/03/18 09:46 Blood Pressure 135/78 09/03/18 09:46 O2 Sat by Pulse Oximetry (%) labs pending aaox3 ambulating no acute distress Assessment: 09/03/18 11:13 withdrawal sx Plan: continue detox increase fluids
--- NOTE | 2018-09-03 11:23 | EKG ---
Test Reason : Blood Pressure : / mmHG Vent. Rate : 094 BPM Atrial Rate : 094 BPM P-R Int : 156 ms QRS Dur : 116 ms QT Int : 398 ms P-R-T Axes : 074 -34 028 degrees QTc Int : 497 ms NORMAL SINUS RHYTHM LEFT AXIS DEVIATION PROLONGED QT ABNORMAL ECG WHEN COMPARED WITH ECG OF 19-MAR-2018 11:26, VENT. RATE HAS NOT CHANGED Confirmed by RONNELL OWEN MD ([id number]) on 09/03/2018 11:23:07 AM Referred By: Confirmed By:RONNELL OWEN MD
[2018-09-03 12:37] LABS: HEMATOCRIT 38.9 % (35.4-49); HEMOGLOBIN 12.8 GM/dL (11.7-16.9); MCH 27.2 pg (25.7-33.7); MCHC 32.9 g/dl (32.0-35.9); MEAN CELL VOLUME 82.5 fl (80-96); MEAN PLT VOLUME 7.6 fl (7.5-11.1); PLATELET COUNT 202 K/MM3 (134-434); RBC 4.72 M/mm3 (4.00-5.60)
[2018-09-03 12:49] LABS: ALBUMIN 2.8 g/dl (3.4-5.0); ALK PHOS 89 U/L (45-117); ANION GAP 5 MMOL/L (8-16); BILIRUBIN,TOTAL 0.2 mg/dL (0.2-1); BLOOD UREA NITROGEN 17 mg/dL (7-18); CALCIUM 8.5 mg/dL (8.5-10.1); CHLORIDE 108 mmol/L (98-107); CO2 30 mmol/L (21-32); GLUCOSE,RANDOM 99 mg/dL (74-106); POTASSIUM 4.3 mmol/L (3.5-5.1); SGOT/AST 18 U/L (15-37); SGPT/ALT 20 U/L (13-61); SODIUM 142 mmol/L (136-145); TOT PROT 6.3 g/dl (6.4-8.2)
[2018-09-03] MEDS: THIAMINE HCL 100 MG TABLET (FP) PO SCH (22:22)
[2018-09-04] MEDS ORDERED: METHADONE HCL 10 MG TABLET ONE (04:44)
[2018-09-04] MEDS ORDERED: METHADONE HCL 40 MG DISPERSABLE TABLET ONE (04:44)
[2018-09-04] MEDS: chlordiazePOXIDE HCL 25 MG CAPSULE PO SCH ×3 (05:41→17:42)
[2018-09-04] MEDS: METHADONE 40 MG, METHADONE 20 MG PO SCH (05:42)
[2018-09-04] MEDS ORDERED: METHADONE HCL 40 MG DISPERSABLE TABLET PO SCH (06:00)
[2018-09-04] MEDS: METHOCARBAMOL 500 MG TABLET PO PRN (10:38)
[2018-09-04] MEDS: PRENATAL VITAMINS W/ FOLIC ACID TABLET (FP) PO SCH (10:38)
[2018-09-04] MEDS: NICOTINE 14 MG/24 HOURS TOPICAL PATCH TD SCH (11:25)
--- NOTE | 2018-09-04 12:45 | PN ---
S CIWA - CIWA Score Nausea/Vomitin-No Nausea/No Vomiting Muscle Tremors: 4-Moderate,w/Arms Extend Anxiety: 3 Agitation: 3 Paroxysmal Sweats: 3 Orientation: 0-Oriented Tacttile Disturbances: 0-None Auditory Disturbances: 0-None Visual Disturbances: 0-None Headache: 0-None Present CIWA-Ar Total Score: 13 S Progress Note (SOAP) Subjective: sweats shakes irritable agitation body aches Objective: 09/04/18 12:44 Vital Signs Temperature 98.2 F 09/04/18 09:30 Pulse Rate 84 09/04/18 09:30 Respiratory Rate 18 09/04/18 09:30 Blood Pressure 130/74 09/04/18 09:30 O2 Sat by Pulse Oximetry (%) Laboratory Tests 09/03/18 09/03/18 09/03/18 08:30 08:30 08:30 WBC 7.0 RBC 4.72 Hgb 12.8 Hct 38.9 D MCV 82.5 MCH 27.2 MCHC 32.9 RDW 15.0 Plt Count 202 D MPV 7.6 D Sodium 142 Potassium 4.3 Chloride 108 H Carbon Dioxide 30 Anion Gap 5 L BUN 17 Creatinine 1.0 Creat Clearance w eGFR > 60 Random Glucose 99 Calcium 8.5 Total Bilirubin 0.2 AST 18 ALT 20 Alkaline Phosphatase 89 Total Protein 6.3 L Albumin 2.8 L RPR Titer Nonreactive aaox3 ambulating no acute distress Assessment: 09/04/18 12:45 withdrawal sx Plan: continue detox increase fluids
--- NOTE | 2018-09-04 13:38 | EKG ---
Test Reason : Blood Pressure : / mmHG Vent. Rate : 078 BPM Atrial Rate : 078 BPM P-R Int : 150 ms QRS Dur : 108 ms QT Int : 428 ms P-R-T Axes : 064 -44 008 degrees QTc Int : 487 ms NORMAL SINUS RHYTHM LEFT AXIS DEVIATION PROLONGED QT ABNORMAL ECG WHEN COMPARED WITH ECG OF 02-SEP-2018 23:13, NO SIGNIFICANT CHANGE WAS FOUND Confirmed by MD TEETEE, JENNIFER ([id number]) on 09/04/2018 1:37:46 PM Referred By: Confirmed By:JENNIFER KINGSLEY MD
[2018-09-04] MEDS: THIAMINE HCL 100 MG TABLET (FP) PO SCH (21:44)
[2018-09-04] MEDS: chlordiazePOXIDE HCL 10 MG CAPSULE PO SCH (22:29)
[2018-09-04] MEDS ORDERED: chlordiazePOXIDE HCL 10 MG CAPSULE PO PRN (23:00)
[2018-09-05] MEDS ORDERED: METHADONE HCL 40 MG DISPERSABLE TABLET ONE (04:14)
[2018-09-05] MEDS ORDERED: METHADONE HCL 10 MG TABLET ONE (04:15)
[2018-09-05] MEDS: METHADONE 40 MG, METHADONE 20 MG PO SCH (05:59)
[2018-09-05] MEDS: chlordiazePOXIDE HCL 10 MG CAPSULE PO SCH ×3 (06:00→18:33)
[2018-09-05] MEDS: PRENATAL VITAMINS W/ FOLIC ACID TABLET (FP) PO SCH (10:05)
[2018-09-05] MEDS: NICOTINE 14 MG/24 HOURS TOPICAL PATCH TD SCH (10:06)
--- NOTE | 2018-09-05 14:12 | PN ---
[facility] Progress Note (SOAP) Subjective: sweats Objective: 09/05/18 14:12 Vital Signs Temperature 98.3 F 09/05/18 09:49 Pulse Rate 79 09/05/18 09:49 Respiratory Rate 18 09/05/18 09:49 Blood Pressure 125/73 09/05/18 09:49 O2 Sat by Pulse Oximetry (%) aaox3 ambulating no acute distress Assessment: 09/05/18 14:12 mild withdrawal sx Plan: continue detox increase fluids d/c in am
[2018-09-05] MEDS: THIAMINE HCL 100 MG TABLET (FP) PO SCH (22:40)
[2018-09-05] MEDS ORDERED: chlordiazePOXIDE HCL 10 MG CAPSULE PO SCH (23:00)
[2018-09-06] MEDS ORDERED: METHADONE HCL 40 MG DISPERSABLE TABLET ONE (05:03)
[2018-09-06] MEDS ORDERED: METHADONE HCL 10 MG TABLET ONE (05:04)
[2018-09-06] MEDS: METHADONE 40 MG, METHADONE 20 MG PO SCH (05:40)
[2018-09-06 08:20] VITALS: TEMP 98.4
--- NOTE | 2018-09-06 09:14 | DS ---
[facility] Detox Discharge Summary Admission Date: 09/02/18 Discharge Date: 09/06/18 - History Present History: Alcohol Dependence, MMTP - Physical Exam Results Vital Signs: Vital Signs Temperature 98.4 F 09/06/18 08:19 Pulse Rate 76 09/06/18 08:19 Respiratory Rate 18 09/06/18 08:19 Blood Pressure 130/70 09/06/18 08:19 O2 Sat by Pulse Oximetry (%) - Treatment Hospital Course: Detox Protocol Followed, Detoxed Safely, Responded well, Discharged Condition Good, Rehab Referral Accepted - Medication Discharge Medications: Ambulatory Orders NK [No Known Home Medication] 03/19/18 - Diagnosis (1) Alcohol dependence with uncomplicated withdrawal Current Visit: Yes Status: Chronic (2) Depression Current Visit: Yes Status: Chronic Qualifiers: Depression Type: unspecified Qualified Code(s): F32.9 - Major depressive disorder, single episode, unspecified (3) Gouty arthropathy Current Visit: Yes Status: Chronic (4) Hypertension Current Visit: Yes Status: Chronic Qualifiers: Hypertension type: essential hypertension Qualified Code(s): I10 - Essential (primary) hypertension (5) Methadone maintenance therapy patient Current Visit: Yes Status: Chronic (6) Nicotine dependence Current Visit: Yes Status: Chronic Qualifiers: Nicotine product type: cigarettes Substance use status: uncomplicated Qualified Code(s): F17.210 - Nicotine dependence, cigarettes, uncomplicated (7) PCP (phencyclidine) abuse Current Visit: Yes Status: Chronic (8) Phencyclidine dependence Current Visit: Yes Status: Chronic (9) Bipolar disorder Current Visit: No Status: Acute (10) Heroin abuse Current Visit: No Status: Acute (11) Mood disorder Current Visit: No Status: Acute (12) Substance induced mood disorder Current Visit: No Status: Acute (13) Encounter for HIV (human immunodeficiency virus) test Current Visit: Yes Status: Chronic (14) Encounter for hepatitis C virus screening test for high risk patient Current Visit: Yes Status: Chronic (15) History of - hypertension Current Visit: No Status: Chronic (16) Type 2 diabetes mellitus Current Visit: No Status: Chronic Qualifiers: Diabetes mellitus detention insulin use: without detention use Diabetes mellitus complication status: without complication Qualified Code(s): E11.9 - Type 2 diabetes mellitus without complications - AMA Did Patient Leave Against Medical Advice: No (referred to [facility] )
[2018-09-06 09:42] VITALS: BP 128/78; PULSE 103
== END 2018-09-06 09:15 | disposition home or self-care (01) | DRG 773 ==
LOC: YASAS 20:53 → Y6N 23:19
PROVIDERS: ADMIT Surgery; ATTEND Surgery
PROC: HZ2ZZZZ Detoxification Services for Substance Abuse Treatment (ICD-10-PCS; principal; 2018-09-02)
DX: F10.230 Alcohol dependence with withdrawal, uncomplicated (principal); F11.20 Opioid dependence, uncomplicated; F16.20 Hallucinogen dependence, uncomplicated; F17.210 Nicotine dependence, cigarettes, uncomplicated; F32.9 Major depressive disorder, single episode, unspecified; F39 Unspecified mood [affective] disorder; F19.24 Other psychoactive substance dependence with psychoactive substance-induced mood disorder; I10 Essential (primary) hypertension; E11.9 Type 2 diabetes mellitus without complications; M10.9 Gout, unspecified; E66.9 Obesity, unspecified; Z68.28 Body mass index [BMI] 28.0-28.9, adult; Z86.69 Personal history of other diseases of the nervous system and sense organs
CPT/HCPCS: 36415; 80053; 85027; 86593; 93005; 93010

== ENCOUNTER 2018-12-01 22:46 | Inpatient (IN) | payer OTHER | END 2018-12-06 09:56 | disposition home or self-care (01) | LOC: Y3N 12-02 00:08 → YASAS 22:46 ==

== ENCOUNTER 2019-01-28 01:46 | Inpatient (IN) | payer OTHER ==
--- NOTE | 2019-01-28 02:10 | HP ---
COWS - Scale Resting Pulse: 1= NV 81-100 Sweatin=Flushed/Facial Moisture Restless Observation: 1= Difficult to Sit Still Pupil Size: 0= Normal to Room Light Bone or Joint Aches: 4=Acute Joint/Muscle Pain Runny Nose/ Eye Tearin= Nasal Congestion GI Upset > 30mins: 1= Stomach Cramp Tremor Observation: 4= Gross Tremor/Twitching Yawning Observation: 0= None Anxiety or Irritability: 2=Irritable/Anxious Goose Flesh Skin: 0=Smooth Skin COWS Score: 16 CIWA Score Nausea/Vomitin-Int. Nausea w/Dry Heave Muscle Tremors: 3 Anxiety: 2 Agitation: 2 Paroxysmal Sweats: 3 Orientation: 0-Oriented Tacttile Disturbances: 0-None Auditory Disturbances: 1-Very Mild Visual Disturbances: 0-None Headache: 2-Mild CIWA-Ar Total Score: 17 - Admission Criteria OASAS Guidelines: Admission for Medically Managed Detox: Requires at least one of the followin. CIWA greater than 12 2. Seizures within the past 24 hours 3. Delirium tremens within the past 24 hours 4. Hallucinations within the past 24 hours 5. Acute intervention needed for co occurring medical disorder 6. Acute intervention needed for co occurring psychiatric disorder 7. Severe withdrawal that cannot be handled at a lower level of care (continued vomiting, continued diarrhea, abnormal vital signs) requiring intravenous medication and/or fluids 8. Admission ROS [facility] Chief Complaint: Alcohol and heroin withdrawal symptoms. Allergies/Adverse Reactions: Allergies Allergy/AdvReac Type Severity Reaction Status Date / Time No Known Allergies Allergy Verified 01/27/19 23:44 History of Present Illness: 59 year old male with a long history of alcohol and cocaine dependence is seeking admission to detox. Patient reoports history of hypertension, seizures and depression. He denies suicide attempt / suicidal ideation at this time. - Ebola screening Have you traveled outside of the country in the last 21 days: No Have you been sick,other than usual withdrawal symptoms: No Do you have a fever: No - Review of Systems Constitutional: Chills, Changes in sleep EENT: reports: No Symptoms Reported, Sinus Pressure Respiratory: reports: No Symptoms reported Cardiac: reports: No Symptoms Reported GI: reports: Poor Appetite, Poor Fluid Intake, Abdominal cramping : reports: No Symptoms Reported Musculoskeletal: reports: Back Pain, Joint Pain Integumentary: reports: Dryness, Flushing Neuro: reports: Tremors Endocrine: reports: No Symptoms Reported Hematology: reports: No Symptoms Reported Psychiatric: reports: Mood/Affect Appropiate, Orientated x3 Other Systems: Reviewed and Negative Patient History - Patient Medical History Hx Anemia: No Hx Asthma: No Hx Chronic Obstructive Pulmonary Disease (COPD): No Hx Cancer: No Hx Cardiac Disorders: No Hx Congestive Heart Failure: No Hx Hypertension: Yes (Not on medication) Hx Hypercholesterolemia: No Hx Pacemaker: No HX Cerebrovascular Accident: No Hx Seizures: Yes (Alcohol withdrawal related seizures, 1981) Hx Dementia: No Hx Diabetes: No Hx Gastrointestinal Disorders: No Hx Liver Disease: No Hx Genitourinary Disorders: No Hx Sexually Transmitted Disorders: No Hx Renal Disease (ESRD): No Hx Thyroid Disease: No Hx Human Immunodeficiency Virus (HIV): No (NEGATIVE HX last 2016 ) Hx Hepatitis C: No Hx Depression: Yes (Not on medication) Hx Suicide Attempt: No (Denies suicidal ideation at this time) Hx Bipolar Disorder: No Hx Schizophrenia: No - Patient Surgical History Past Surgical History: No Hx Neurologic Surgery: No Hx Cataract Extraction: No Hx Cardiac Surgery: No Hx Lung Surgery: No Hx Breast Surgery: No Hx Breast Biopsy: No Hx Abdominal Surgery: No Hx Appendectomy: No Hx Cholecystectomy: No Hx Genitourinary Surgery: No Hx Section: No Hx Orthopedic Surgery: No Anesthesia Reaction: No - PPD History Date: 12/03/18 Results: not read - Smoking Cessation Smoking history: Current every day smoker Have you smoked in the past 12 months: Yes Aproximately how many cigarettes per day: 20 Cigars Per Day: 0 Hx Chewing Tobacco Use: No Initiated information on smoking cessation: Yes 'Breaking Loose' booklet given: 01/28/19 - Substances abused PCP Substance route: Smoking Frequency: Daily Amount used: 1 to 2 bags Age of first use: 17 Date of last use: 01/27/19 Alcohol Other (specify): BEER Substance route: Oral Frequency: Daily Amount used: 5 bottles of beer Age of first use: 19 Date of last use: 01/27/19 Heroin Substance route: Inhalation Frequency: Daily Amount used: 2 bags Age of first use: 18 Date of last use: 01/27/19 Family Disease History - Family Disease History Family Disease History: Diabetes: Mother, Heart Disease: Mother, Other: Father ( alc and drugs ), Sister (alc and drugs ) Admission Physical Exam [facility] - Physical General Appearance: Yes: Within Normal Limits, Moderate Distress HEENTM: Yes: Within Normal Limits, Normal ENT Inspection Respiratory: Yes: Lungs Clear, Normal Breath Sounds, No Respiratory Distress Neck: Yes: Supple Breast: Yes: Breast Exam Deferred Cardiology: Yes: Tachycardia Abdominal: Yes: Normal Bowel Sounds Genitourinary: Yes: Within Normal Limits Back: Yes: Normal Inspection Musculoskeletal: Yes: Within Normal Limits Extremities: Yes: Normal Capillary Refill Neurological: Yes: Alert, Normal Mood/Affect Integumentary: Yes: Normal Color, Warm Lymphatic: Yes: Within Normal Limits - Diagnostic (1) Seizure Current Visit: Yes Status: Acute (2) Alcohol dependence with uncomplicated withdrawal Current Visit: Yes Status: Acute (3) Substance induced mood disorder Current Visit: No Status: Acute (4) Depression Current Visit: No Status: Chronic Qualifiers: Depression Type: unspecified Qualified Code(s): F32.9 - Major depressive disorder, single episode, unspecified (5) History of - hypertension Current Visit: No Status: Chronic (6) Phencyclidine dependence Current Visit: No Status: Chronic (7) Type 2 diabetes mellitus Current Visit: No Status: Chronic Qualifiers: Diabetes mellitus fdc insulin use: without supervisor intermediates use Diabetes mellitus complication status: without complication Qualified Code(s): E11.9 - Type 2 diabetes mellitus without complications Cleared for Admission [facility] - Detox or Rehab [facility] Level of Care: Medically Managed Detox Regimen/Protocol: Methadone/Librium Breathalyzer - Breathalyzer Breathalyzer: 0 Urine Drug Screen - Test Device Lot number: [id number] Expiration date: 10/23/20 - Control Is test valid?: Yes - Results Drug screen NEGATIVE: No Urine drug screen results: FEN-Fentanyl, MOP-Opiates, BZO-Benzodiazepines Inpatient Rehab Admission - Rehab Decision to Admit Inpatient rehab admission?: No
[2019-01-28] MEDS ORDERED: hydrOXYzine PAMOATE 25 MG CAPSULE (FP) PO PRN (02:33)
[2019-01-28] MEDS ORDERED: IBUPROFEN 400 MG TABLET (FP) PO PRN (02:33)
[2019-01-28] MEDS ORDERED: MELATONIN 5 MG TABLETS PO PRN (02:33)
[2019-01-28] MEDS ORDERED: MENTHOL/PHENOL 1 EACH UD MM PRN (02:33)
[2019-01-28] MEDS ORDERED: ACETAMINOPHEN 325 MG TABLET (FP) PO PRN ×2 (02:33)
[2019-01-28] MEDS ORDERED: METHADONE HCL 10 MG TABLET (FOR DETOX USE ONLY) PO ONE (02:33)
[2019-01-28] MEDS ORDERED: METHOCARBAMOL 500 MG TABLET PO PRN (02:33)
[2019-01-28] MEDS ORDERED: MAG HYDROX/AL HYDROX/SIMETH 30 ML UNIT-DOSE CUP PO PRN (02:33)
[2019-01-28] MEDS ORDERED: MAGNESIUM CITRATE 300 ML BOTTLE PO PRN (02:33)
[2019-01-28] MEDS ORDERED: BISMUTH SUBSALICYLATE 524 MG/30 ML UD PO PRN (02:33)
[2019-01-28] MEDS ORDERED: MAGNESIUM HYDROX 2400MG/30ML ORAL SUSPENSION 30 ML CUP PO PRN (02:33)
[2019-01-28] MEDS ORDERED: chlordiazePOXIDE HCL 10 MG CAPSULE PO PRN (02:33)
[2019-01-28] MEDS ORDERED: cloNIDine HCL 0.1 MG TABLET PO PRN (02:33)
[2019-01-28] MEDS ORDERED: METHADONE HCL 5 MG TABLET (FOR DETOX USE ONLY) PO ONE (03:45)
[2019-01-28] MEDS: chlordiazePOXIDE 5 MG CAPSULE PO SCH ×3 (07:29→22:27)
--- NOTE | 2019-01-28 09:38 | CONSULT ---
[facility] Psychiatric Consult - Data Date of interview: 01/28/19 Admission source: Self-referred Identifying data: Mr Royal is a 59 years old Black male, father of one daughter in her 40's, unemployed receiving public assistance, homeless seeking detox treatment for alcohol, heroin and phencyclidine Substance Abuse History: Reports history of alcohol, heroin and pcp use. Refer to addiction counselor's summary for further information Medical History: Significant for hypertension, gouty arthropathy, history of alcohol related seizure. Smokes cigarettes 1 ppd Psychiatric History: Patient is known to junior copywriter from previous encounters, most recent one was during an admission to this facility from 12/02/18 to 12/06/18. he reports that his first psychiatric contact was at age 13-14 while [place]. Claims he was not prescribed any medication. When seen by junior copywriter previously he reported seeing a psychiatrist at [facility] [place] as an adult with no medication prescribed. Now he claims that that service was provided at [facility] and he recalls being prescribed medication but he has no recollection of the its name. He is consistent with his most recent OPD care which provided by Dr Mario at [facility] and he was prescribed Seroquel and Trazadone 50 mg po HS. He cannot tell what he was being treated for. He is not currently receiving outpatient psychiatric treatment not taking psychotropic medication. When seen by junior copywriter on 12/02/18, he was prescribed Melatonin 5 mg/hs. Denies previous psychiatric hospitalization or suicidal attempt. At present, reports feeling mildly depressed and sleeping poorly. Requests to be ordered some medication stonger than Melatonin Physical/Sexual Abuse/Trauma History: Denies history of emotional, physical or sexual abuse as well as DV relationship. No service Additional Comment: Reports history of multiple previous arrests including 2 felony convictions. Denies being on parole/probation at present. Reports that he was recently incarcerated for 28 days on [place] of PCP possession and released on 12/02/18. Told junior copywriter that he was recently given a ticket for drinking in public and he said that he tore it up Mental Status Exam - Mental Status Exam Alert and Oriented to: Time, Place, Person Cognitive Function: Fair Patient Appearance: Well Groomed Mood: Depressed Affect: Appropriate Patient Behavior: Cooperative Speech Pattern: Clear Voice Loudness: Normal Thought Process: Intact, Goal Oriented Thought Disorder: Not Present Hallucinations: Denies Suicidal Ideation: Denies Homicidal Ideation: Denies Insight/Judgement: Poor Sleep: Poorly Appetite: Good Muscle strength/Tone: Normal Gait/Station: Normal Psychiatric Findings - Problem List ([place] 1, 2,3) (1) Mood disorder Current Visit: No Status: Chronic (2) Substance induced mood disorder Current Visit: No Status: Acute (3) Substance-induced sleep disorder Current Visit: No Status: Acute (4) Alcohol dependence with uncomplicated withdrawal Current Visit: Yes Status: Acute (5) Opioid dependence, uncomplicated Current Visit: Yes Status: Acute (6) Phencyclidine dependence Current Visit: No Status: Acute (7) Nicotine dependence Current Visit: No Status: Chronic Qualifiers: Nicotine product type: cigarettes Substance use status: uncomplicated Qualified Code(s): F17.210 - Nicotine dependence, cigarettes, uncomplicated (8) Seizure Current Visit: Yes Status: Acute (9) Gouty arthropathy Current Visit: No Status: Chronic Comment: not medicated for a year as per hx. (10) Hypertension Current Visit: No Status: Chronic Qualifiers: Hypertension type: essential hypertension Qualified Code(s): I10 - Essential (primary) hypertension - Initial Treatment Plan Initial Treatment Plan: 1) Start Belsomra 10 mg po HS prn for insomnia. 2) Continue inpatient detoxification
[2019-01-28] MEDS: PRENATAL VITAMINS W/ FOLIC ACID TABLET (FP) PO SCH (10:35)
--- NOTE | 2019-01-28 15:04 | PN ---
[facility] CIWA - CIWA Score Nausea/Vomitin-No Nausea/No Vomiting Muscle Tremors: 3 Anxiety: 3 Agitation: 1-Slight > Activity Paroxysmal Sweats: 3 Orientation: 2-Disoriented Date<2 days Tacttile Disturbances: 0-None Auditory Disturbances: 2-Mild Harshness/Frighten Visual Disturbances: 2-Mild Sensitivity Headache: 0-None Present CIWA-Ar Total Score: 16 S COWS - Scale Resting Pulse: 0= [place] 80 or Below Sweatin= Chills/Flushing Restless Observation: 1= Difficult to Sit Still Pupil Size: 0= Normal to Room Light Bone or Joint Aches: 2= Severe Diffuse Aches Runny Nose/ Eye Tearin= None GI Upset > 30mins: 0= None Tremor Observation of Outstretched Hands: 2= Slight Tremor Visible Yawning Observation: 1= 1-2x During Session Anxiety or Irritability: 2=Irritable/Anxious Goose Flesh Skin: 3=Piloerection COWS Score: 12 S Progress Note (SOAP) Subjective: Sweating, body Aches, Anxious, Tremors. Objective: PATIENT A & O X 2 (UNCERTAIN ABOUT CURRENT DAY / DATE). PATIENT OBSERVED AMBULATING ON UNIT UNASSISTED. IN NO ACUTE DISTRESS. 01/28/19 15:04 Vital Signs Temperature 97.7 F 01/28/19 13:09 Pulse Rate 68 01/28/19 13:09 Respiratory Rate 18 01/28/19 13:09 Blood Pressure 155/87 01/28/19 13:09 O2 Sat by Pulse Oximetry (%) ADMISSION LAB RESULTS PENDING. 01/28/19 15:06 Assessment: 01/28/19 15:07 WITHDRAWAL SYMPTOMS. HYPERTENSION. Plan: CONTINUE DETOX. AMLODIPINE, 5 MG PO DAILY FOR HYPERTENSION. (PATIENT REPORTED HISTORY OF HTN ON DETOX ADMISSION, BUT DENIES ANY CURRENT PRESCRIBED (OUTPATIENT) MEDICATIONS FOR HTN).
[2019-01-28] MEDS ORDERED: amLODIPine BESYLATE 5 MG TABLET (FP) PO ONE (16:00)
[2019-01-28] MEDS ORDERED: SUVOREXANT 10 MG TABLET PO PRN (22:00)
[2019-01-28] MEDS: THIAMINE HCL 100 MG TABLET (FP) PO SCH (22:28)
[2019-01-29] MEDS: chlordiazePOXIDE 5 MG CAPSULE PO SCH ×3 (08:14→22:59)
[2019-01-29] MEDS ORDERED: METHADONE HCL 5 MG TABLET (FOR DETOX USE ONLY) ONE (08:58)
[2019-01-29] MEDS ORDERED: METHADONE HCL 10 MG TABLET (FOR DETOX USE ONLY) ONE (09:56)
[2019-01-29] MEDS ORDERED: METHADONE (DETOX) 20 MG, METHADONE (DETOX) 5 MG PO ONE (10:00)
[2019-01-29] MEDS: amLODIPine BESYLATE 5 MG TABLET (FP) PO SCH (10:21)
[2019-01-29] MEDS: PRENATAL VITAMINS W/ FOLIC ACID TABLET (FP) PO SCH (10:21)
[2019-01-29 10:58] LABS: HEMATOCRIT 40.3 % (35.4-49); HEMOGLOBIN 12.8 GM/dL (11.7-16.9); MCH 26.7 pg (25.7-33.7); MCHC 31.9 g/dl (32.0-35.9); MEAN CELL VOLUME 83.9 fl (80-96); MEAN PLT VOLUME 8.1 fl (7.5-11.1); PLATELET COUNT 182 K/MM3 (134-434); RBC 4.81 M/mm3 (4.00-5.60); RDW 16.9 % (11.9-15.9); WHITE BLOOD COUNT 6.8 K/mm3 (4.0-10.0)
[2019-01-29 11:07] LABS: ALBUMIN 3.1 g/dl (3.4-5.0); BILIRUBIN,TOTAL 0.2 mg/dL (0.2-1); POTASSIUM 4.5 mmol/L (3.5-5.1); TOT PROT 6.1 g/dl (6.4-8.2)
--- NOTE | 2019-01-29 11:22 | PN ---
S CIWA - CIWA Score Nausea/Vomitin Muscle Tremors: 2 Anxiety: 2 Agitation: 2 Paroxysmal Sweats: No Perspiration Orientation: 0-Oriented Tacttile Disturbances: 1-Very Mild Itch/Numbness Auditory Disturbances: 0-None Visual Disturbances: 0-None Headache: 2-Mild CIWA-Ar Total Score: 11 S Progress Note (SOAP) Subjective: alert,irritable,anxious,interrupted sleep,tremor Objective: 01/29/19 11:20 Vital Signs Temperature 97.7 F 01/29/19 09:24 Pulse Rate 70 01/29/19 09:24 Respiratory Rate 16 01/29/19 09:24 Blood Pressure 141/68 01/29/19 09:24 O2 Sat by Pulse Oximetry (%) Laboratory Last Values WBC 6.8 K/mm3 (4.0-10.0) 01/29/19 07:00 RBC 4.81 M/mm3 (4.00-5.60) 01/29/19 07:00 Hgb 12.8 GM/dL (11.7-16.9) 01/29/19 07:00 Hct 40.3 % (35.4-49) 01/29/19 07:00 MCV 83.9 fl (80-96) 01/29/19 07:00 MCH 26.7 pg (25.7-33.7) 01/29/19 07:00 MCHC 31.9 g/dl (32.0-35.9) L 01/29/19 07:00 RDW 16.9 % (11.9-15.9) H 01/29/19 07:00 Plt Count 182 K/MM3 (134-434) 01/29/19 07:00 MPV 8.1 fl (7.5-11.1) 01/29/19 07:00 Sodium 145 mmol/L (136-145) 01/29/19 07:00 Potassium 4.5 mmol/L (3.5-5.1) 01/29/19 07:00 Chloride 110 mmol/L (98-107) H 01/29/19 07:00 Carbon Dioxide 32 mmol/L (21-32) 01/29/19 07:00 Anion Gap 3 MMOL/L (8-16) L 01/29/19 07:00 BUN 15.0 mg/dL (7-18) 01/29/19 07:00 Creatinine 1.0 mg/dL (0.55-1.3) 01/29/19 07:00 Est GFR (CKD-EPI)AfAm 96.40 01/29/19 07:00 Est GFR (CKD-EPI)NonAf 83.18 01/29/19 07:00 Random Glucose 97 mg/dL (74-106) 01/29/19 07:00 Calcium 9.0 mg/dL (8.5-10.1) 01/29/19 07:00 Total Bilirubin 0.2 mg/dL (0.2-1) 01/29/19 07:00 AST 8 U/L (15-37) L 01/29/19 07:00 ALT 20 U/L (13-61) 01/29/19 07:00 Alkaline Phosphatase 66 U/L (45-117) 01/29/19 07:00 Total Protein 6.1 g/dl (6.4-8.2) L 01/29/19 07:00 Albumin 3.1 g/dl (3.4-5.0) L 01/29/19 07:00 01/29/19 11:21 RPR QFT pending Assessment: 01/29/19 11:21 withdrawal symptom Plan: continue detox librium regimen
--- NOTE | 2019-01-29 12:13 | PN ---
BHS Progress Note Note: patient did not want to take methadone,stated he is doing ok without methadone, on librium regimen
[2019-01-29] MEDS: THIAMINE HCL 100 MG TABLET (FP) PO SCH (23:03)
[2019-01-30] MEDS ORDERED: chlordiazePOXIDE HCL 10 MG CAPSULE PO PRN
[2019-01-30] MEDS ORDERED: chlordiazePOXIDE HCL 10 MG CAPSULE PO SCH (05:00)
[2019-01-30 09:33] VITALS: BP 142/60; PULSE 77; TEMP 98.2
[2019-01-30] MEDS ORDERED: METHADONE HCL 10 MG TABLET (FOR DETOX USE ONLY) PO ONE (10:00)
[2019-01-30] MEDS: PRENATAL VITAMINS W/ FOLIC ACID TABLET (FP) PO SCH (11:10)
[2019-01-30] MEDS: amLODIPine BESYLATE 5 MG TABLET (FP) PO SCH (11:10)
--- NOTE | 2019-01-30 13:32 | PN ---
S Progress Note Note: pt arrive in withdrawls pt c/o of withdrawals s/s and aggressive symptomatic management attempted however, pt in spite of extensive motivational counseling regarding the risk of relapse, seizures, DT and or loss, pt chose to sign out AMA.
--- NOTE | 2019-01-30 13:58 | DS ---
[facility] Detox Discharge Summary Admission Date: 01/28/19 - History Present History: Alcohol Dependence, Opioid Dependence, Pcp Dependence, MMTP - Physical Exam Results Vital Signs: Vital Signs Temperature 98.2 F 01/30/19 09:32 Pulse Rate 77 01/30/19 09:32 Respiratory Rate 20 01/30/19 09:32 Blood Pressure 142/60 01/30/19 09:32 O2 Sat by Pulse Oximetry (%) Pertinent Admission Physical Exam Findings: pt arrived in withdrawals Laboratory Tests 01/29/19 01/29/19 01/29/19 07:00 07:00 07:00 WBC 6.8 RBC 4.81 Hgb 12.8 Hct 40.3 MCV 83.9 MCH 26.7 MCHC 31.9 L RDW 16.9 H Plt Count 182 MPV 8.1 Sodium 145 Potassium 4.5 Chloride 110 H Carbon Dioxide 32 Anion Gap 3 L BUN 15.0 Creatinine 1.0 Est GFR (CKD-EPI)AfAm 96.40 Est GFR (CKD-EPI)NonAf 83.18 Random Glucose 97 Calcium 9.0 Total Bilirubin 0.2 AST 8 L ALT 20 Alkaline Phosphatase 66 Total Protein 6.1 L Albumin 3.1 L RPR Titer Nonreactive today he states he feels fine and wants to leave pt signed out AMA. - Treatment Hospital Course: Detox Protocol Followed, Detoxed Safely, Responded well, Discharged Condition Good, Rehab Referral Accepted Patient has Accepted a Rehab Referral to: referral provided - Medication Discharge Medications: Ambulatory Orders NK [No Known Home Medication] 01/03/19 - Diagnosis (1) Alcohol dependence with uncomplicated withdrawal Current Visit: Yes Status: Chronic (2) Opioid dependence, uncomplicated Current Visit: Yes Status: Chronic (3) Seizure Current Visit: Yes Status: Acute (4) Hypertension Current Visit: No Status: Chronic Qualifiers: Hypertension type: essential hypertension Qualified Code(s): I10 - Essential (primary) hypertension (5) Bipolar disorder Current Visit: No Status: Acute (6) Hematuria Current Visit: No Status: Acute Qualifiers: Hematuria type: unspecified type Qualified Code(s): R31.9 - Hematuria, unspecified (7) Phencyclidine dependence Current Visit: No Status: Acute (8) Substance induced mood disorder Current Visit: No Status: Acute (9) Substance-induced sleep disorder Current Visit: No Status: Acute (10) Depression Current Visit: No Status: Chronic Qualifiers: Depression Type: unspecified Qualified Code(s): F32.9 - Major depressive disorder, single episode, unspecified (11) Encounter for HIV (human immunodeficiency virus) test Current Visit: No Status: Chronic (12) Encounter for hepatitis C virus screening test for high risk patient Current Visit: No Status: Chronic (13) Excoriation (skin-picking) disorder Current Visit: No Status: Chronic (14) Gouty arthropathy Current Visit: No Status: Chronic (15) History of - hypertension Current Visit: No Status: Chronic (16) Methadone maintenance therapy patient Current Visit: No Status: Chronic (17) Mood disorder Current Visit: No Status: Chronic (18) Nicotine dependence Current Visit: Yes Status: Chronic Qualifiers: Nicotine product type: cigarettes Substance use status: uncomplicated Qualified Code(s): F17.210 - Nicotine dependence, cigarettes, uncomplicated (19) Nicotine use disorder Current Visit: No Status: Chronic (20) Opioid dependence on agonist therapy Current Visit: No Status: Chronic (21) PCP (phencyclidine) abuse Current Visit: No Status: Chronic (22) Type 2 diabetes mellitus Current Visit: No Status: Chronic Qualifiers: Diabetes mellitus group home insulin use: without group home use Diabetes mellitus complication status: without complication Qualified Code(s): E11.9 - Type 2 diabetes mellitus without complications (23) Substance induced mood disorder Current Visit: No Status: Suspected - AMA Did Patient Leave Against Medical Advice: Yes
[2019-01-31] MEDS ORDERED: chlordiazePOXIDE HCL 10 MG CAPSULE PO ONE (05:00)
[2019-01-31] MEDS ORDERED: METHADONE (DETOX) 10 MG, METHADONE (DETOX) 5 MG PO ONE (10:00)
[2019-02-01] MEDS ORDERED: METHADONE HCL 10 MG TABLET (FOR DETOX USE ONLY) PO ONE (10:00)
[2019-02-02] MEDS ORDERED: METHADONE HCL 5 MG TABLET (FOR DETOX USE ONLY) PO ONE (06:00)
== END 2019-01-30 11:10 | disposition left against medical advice (07) | DRG 770 ==
LOC: YASAS 01:46 → Y6N 02:32
PROVIDERS: ADMIT Surgery; ATTEND Surgery
PROC: HZ2ZZZZ Detoxification Services for Substance Abuse Treatment (ICD-10-PCS; principal; 2019-01-28)
DX: F11.23 Opioid dependence with withdrawal (principal); F10.230 Alcohol dependence with withdrawal, uncomplicated; F16.20 Hallucinogen dependence, uncomplicated; F17.210 Nicotine dependence, cigarettes, uncomplicated; F19.24 Other psychoactive substance dependence with psychoactive substance-induced mood disorder; F19.282 Other psychoactive substance dependence with psychoactive substance-induced sleep disorder; F32.9 Major depressive disorder, single episode, unspecified; R31.9 Hematuria, unspecified; F42.4 Excoriation (skin-picking) disorder; F39 Unspecified mood [affective] disorder; M10.9 Gout, unspecified; I10 Essential (primary) hypertension; E11.9 Type 2 diabetes mellitus without complications; Z11.4 Encounter for screening for human immunodeficiency virus [HIV]; Z11.59 Encounter for screening for other viral diseases; Z91.5 Personal history of self-harm; Z86.69 Personal history of other diseases of the nervous system and sense organs
CPT/HCPCS: 36415; 80053; 85027; 86480; 86593

== ENCOUNTER 2019-02-17 18:10 | Inpatient (IN) | payer OTHER ==
[2019-02-17 18:42] VITALS: BMI 29.0
--- NOTE | 2019-02-17 19:14 | HP ---
COWS - Scale Resting Pulse: 0= [place] 80 or Below Sweatin= Chills/Flushing Restless Observation: 1= Difficult to Sit Still Pupil Size: 1= Pupils >than Normal Bone or Joint Aches: 2= Severe Diffuse Aches Runny Nose/ Eye Tearin= Runny Nose/Eyes GI Upset > 30mins: 2= Nausea/Diarrhea Tremor Observation: 2= Slight Tremor Visible Yawning Observation: 0= None Anxiety or Irritability: 2=Irritable/Anxious Goose Flesh Skin: 0=Smooth Skin COWS Score: 13 CIWA Score Nausea/Vomitin Muscle Tremors: 3 Anxiety: 3 Agitation: 2 Paroxysmal Sweats: 2 Orientation: 1-Uncertain about Date Tacttile Disturbances: 0-None Auditory Disturbances: 1-Very Mild Visual Disturbances: 1-Very Mild Sensitivity Headache: 1-Very Mild CIWA-Ar Total Score: 17 - Admission Criteria OASAS Guidelines: Admission for Medically Managed Detox: Requires at least one of the followin. CIWA greater than 12 2. Seizures within the past 24 hours 3. Delirium tremens within the past 24 hours 4. Hallucinations within the past 24 hours 5. Acute intervention needed for co occurring medical disorder 6. Acute intervention needed for co occurring psychiatric disorder 7. Severe withdrawal that cannot be handled at a lower level of care (continued vomiting, continued diarrhea, abnormal vital signs) requiring intravenous medication and/or fluids 8. Patient presents the following: Acute intervention needed for co-occurring med or psych disorder Admission Criteria Met: Admission criteria met Admission ROS BHS - HPI Chief Complaint: IM TIRED OF FEELING THE WAY I FEEL NOW Allergies/Adverse Reactions: Allergies Allergy/AdvReac Type Severity Reaction Status Date / Time No Known Allergies Allergy Verified 02/17/19 18:36 History of Present Illness: 42 YEAR HO SUBSTANCE USE ABSTIENCE DURING INCARCERATION ONLY 4 YEARS DURING INCARCERATION 3-4 BAGS INH DAILY DRINKING 10 BEERS - Ebola screening Have you traveled outside of the country in the last 21 days: No (N) Have you had contact with anyone from an Ebola affected area: No Do you have a fever: No - Review of Systems Constitutional: Changes in sleep, Weight Stable EENT: reports: No Symptoms Reported Respiratory: reports: No Symptoms reported Cardiac: reports: No Symptoms Reported GI: reports: Nausea, Abdominal cramping : reports: No Symptoms Reported Musculoskeletal: reports: Muscle Pain Integumentary: reports: No Symptoms Reported Neuro: reports: No Symptoms reported Endocrine: reports: No Symptoms Reported Hematology: reports: No Symptoms Reported Psychiatric: reports: Depressed Patient History - Patient Medical History Hx Anemia: No Hx Asthma: No Hx Chronic Obstructive Pulmonary Disease (COPD): No Hx Cancer: No Hx Cardiac Disorders: No Hx Congestive Heart Failure: No Hx Hypertension: No Hx Hypercholesterolemia: No Hx Pacemaker: No HX Cerebrovascular Accident: No Hx Seizures: No Hx Dementia: No Hx Diabetes: No Hx Gastrointestinal Disorders: No Hx Liver Disease: No Hx Genitourinary Disorders: No Hx Sexually Transmitted Disorders: No Hx Renal Disease (ESRD): No Hx Thyroid Disease: No Hx Human Immunodeficiency Virus (HIV): No (NEGATIVE HX last 2016 ) Hx Hepatitis C: No Hx Depression: Yes (FEELS SLIGHTLY HOPELESS) Hx Suicide Attempt: No Hx Bipolar Disorder: No Hx Schizophrenia: No - Patient Surgical History Past Surgical History: No Hx Neurologic Surgery: No Hx Cataract Extraction: No Hx Cardiac Surgery: No Hx Lung Surgery: No Hx Breast Surgery: No Hx Breast Biopsy: No Hx Abdominal Surgery: No Hx Appendectomy: No Hx Cholecystectomy: No Hx Genitourinary Surgery: No Hx Section: No Hx Orthopedic Surgery: No Anesthesia Reaction: No - PPD History Previous Implant?: Yes Documented Results: Negative w/proof Date: 12/03/18 Results: not read - Smoking Cessation Smoking history: Current every day smoker Have you smoked in the past 12 months: Yes Aproximately how many cigarettes per day: 20 Cigars Per Day: 0 Hx Chewing Tobacco Use: No Initiated information on smoking cessation: Yes 'Breaking Loose' booklet given: 02/17/19 - Substances abused PCP Substance route: Smoking Frequency: Daily Amount used: 1 to 2 bags Age of first use: 17 Date of last use: 02/15/19 Alcohol Other (specify): BEER Substance route: Oral Frequency: Daily Amount used: 5 16 oz bottles of beer Age of first use: 19 Date of last use: 02/17/19 Heroin Substance route: Inhalation Frequency: Daily Amount used: 2-4 bags Age of first use: 18 Date of last use: 02/16/19 Family Disease History - Family Disease History Family Disease History: Diabetes: Mother, Heart Disease: Mother, Other: Father ( alc and drugs ), Sister (alc and drugs ) Admission Physical Exam BHS - Vital Signs Vital Signs: Vital Signs - 24 hr 02/17/19 18:37 Temperature 98.1 F Pulse Rate 64 Respiratory 16 Rate Blood Pressure 175/86 H - Physical General Appearance: Yes: Alcohol on Breath, Irritable, Anxious HEENTM: Yes: EOMI, Hearing grossly Normal, Normal ENT Inspection, Normocephalic Respiratory: Yes: Chest Non-Tender, Lungs Clear Neck: Yes: Within Normal Limits Breast: Yes: Breast Exam Deferred Cardiology: Yes: Within Normal Limits Abdominal: Yes: Increased Bowel Sounds Genitourinary: Yes: Within Normal Limits Back: Yes: Within Normal Limits, Normal Inspection Musculoskeletal: Yes: Within Normal Limits, full range of Motion, Gait Steady Extremities: Yes: Normal Capillary Refill, Normal Inspection, Normal Range of Motion Neurological: Yes: back tender insulation board II-XII NML intact, Fully Oriented, Alert, Motor Strength 5/5, Normal Mood/Affect Integumentary: Yes: Within Normal Limits Cleared for Admission [facility] - Detox or Rehab [facility] Level of Care: Medically Supervised Breathalyzer - Breathalyzer Breathalyzer: 0 Urine Drug Screen - Test Device Lot number: [id number] Expiration date: 10/23/20 - Control Is test valid?: Yes - Results Drug screen NEGATIVE: No Urine drug screen results: FEN-Fentanyl, MOP-Opiates, BZO-Benzodiazepines Inpatient Rehab Admission - Rehab Decision to Admit Inpatient rehab admission?: No
[2019-02-17] MEDS ORDERED: METHOCARBAMOL 500 MG TABLET PO PRN (19:20)
[2019-02-17] MEDS ORDERED: MAG HYDROX/AL HYDROX/SIMETH 30 ML UNIT-DOSE CUP PO PRN (19:20)
[2019-02-17] MEDS ORDERED: IBUPROFEN 400 MG TABLET (FP) PO PRN (19:20)
[2019-02-17] MEDS ORDERED: MELATONIN 5 MG TABLETS PO PRN (19:20)
[2019-02-17] MEDS ORDERED: hydrOXYzine PAMOATE 25 MG CAPSULE (FP) PO PRN (19:20)
[2019-02-17] MEDS ORDERED: BISMUTH SUBSALICYLATE 524 MG/30 ML UD PO PRN (19:20)
[2019-02-17] MEDS ORDERED: chlordiazePOXIDE HCL 10 MG CAPSULE PO PRN (19:20)
[2019-02-17] MEDS ORDERED: MAGNESIUM CITRATE 300 ML BOTTLE PO PRN (19:20)
[2019-02-17] MEDS ORDERED: ACETAMINOPHEN 325 MG TABLET (FP) PO PRN ×2 (19:20)
[2019-02-17] MEDS ORDERED: MENTHOL/PHENOL 1 EACH UD MM PRN (19:20)
[2019-02-17] MEDS ORDERED: cloNIDine HCL 0.1 MG TABLET PO PRN (19:20)
[2019-02-17] MEDS ORDERED: METHADONE HCL 10 MG TABLET (FOR DETOX USE ONLY) PO ONE (19:20)
[2019-02-17] MEDS ORDERED: MAGNESIUM HYDROX 2400MG/30ML ORAL SUSPENSION 30 ML CUP PO PRN (19:20)
[2019-02-17] MEDS: chlordiazePOXIDE HCL 25 MG CAPSULE PO SCH (20:07)
[2019-02-17] MEDS: chlordiazePOXIDE HCL 10 MG CAPSULE PO SCH (22:38)
[2019-02-17] MEDS: THIAMINE HCL 100 MG TABLET (FP) PO SCH (23:42)
[2019-02-18] MEDS: chlordiazePOXIDE HCL 25 MG CAPSULE PO SCH ×3 (05:48→22:30)
[2019-02-18 09:42] LABS: HEMATOCRIT 43.3 % (35.4-49); HEMOGLOBIN 13.9 GM/dL (11.7-16.9); MCHC 32.1 g/dl (32.0-35.9); MEAN PLT VOLUME 7.8 fl (7.5-11.1); PLATELET COUNT 257 K/MM3 (134-434); RBC 5.16 M/mm3 (4.00-5.60); RDW 16.1 % (11.9-15.9); WHITE BLOOD COUNT 8.5 K/mm3 (4.0-10.0)
[2019-02-18 09:58] LABS: ALBUMIN 3.4 g/dl (3.4-5.0); BILIRUBIN,TOTAL 0.2 mg/dL (0.2-1); BLOOD UREA NITROGEN 14.6 mg/dL (7-18); CREATININE 1.1 mg/dL (0.55-1.3); POTASSIUM 4.7 mmol/L (3.5-5.1)
[2019-02-18] MEDS ORDERED: METHADONE HCL 5 MG TABLET (FOR DETOX USE ONLY) PO ONE (10:00)
[2019-02-18] MEDS: PRENATAL VITAMINS W/ FOLIC ACID TABLET (FP) PO SCH (11:27)
--- NOTE | 2019-02-18 12:40 | CONSULT ---
[facility] Psychiatric Consult - Data Date of interview: 02/18/19 Admission source: Self-referred Identifying data: Mr Royal is a 59 years old Black male, father of a 37 years old daughter , unemployed receiving public assistance, homeless seeking detox treatment for alcohol, heroin and phencyclidine Substance Abuse History: Reports history of alcohol, heroin and pcp use. Refer to addiction counselor's summary for further information Medical History: Significant for hypertension, gouty arthropathy, history of alcohol related seizure. Smokes cigarettes 1 ppd Psychiatric History: Patient is known to sba underwriter from previous encounters, most recent one was during an admission to this facility from 01/28/19 to 01/30/19. he reports that his first psychiatric contact was at age 13-14 while in [facility]. Claims he was not prescribed any medication. He was seen by sba underwriter a few times with different accounts about outpatient treatment. In November 2018, he reported seeing a psychiatrist at [facility] and he was not prescribed medication. At most recent encounter earlier this month, he told sba underwriter that it was at [facility] and he was prescribed medication but he has no recollection of the its name. He is consistent with his most recent OPD care which was provided by Dr Mario at [facility] and he was prescribed Seroquel and Trazadone 50 mg po HS. when seen by sba underwriter on 01/28/19, he was only ordered Belsomra 10 mg/hs pn for insomnia. Reports being off medication since recent discharge. Denies previous psychiatric hospitalization or suicidal attempt. At present, reports feeling mildly depressed. Physical/Sexual Abuse/Trauma History: Denies history of emotional, physical or sexual abuse as well as DV relationship. No service Additional Comment: Reports history of multiple previous arrests including 2 felony convictions. Denies being on parole/probation at present. Reports that he was recently incarcerated for 28 days on [place] of PCP possession and released on 12/02/18. Told sba underwriter that he was recently given a ticket for drinking in public and he said that he tore it up Mental Status Exam - Mental Status Exam Alert and Oriented to: Time, Place, Person Cognitive Function: Fair Patient Appearance: Well Groomed Mood: Depressed Affect: Appropriate Patient Behavior: Cooperative Speech Pattern: Clear Voice Loudness: Normal Thought Process: Intact, Goal Oriented Thought Disorder: Not Present Hallucinations: Denies Suicidal Ideation: Denies Insight/Judgement: Poor Sleep: Well Muscle strength/Tone: Normal Psychiatric Findings - Problem List ([place] 1, 2,3) (1) Mood disorder Current Visit: No Status: Chronic (2) Substance induced mood disorder Current Visit: Yes Status: Acute (3) Alcohol dependence with uncomplicated withdrawal Current Visit: No Status: Chronic (4) Opioid dependence, uncomplicated Current Visit: No Status: Chronic (5) Phencyclidine dependence Current Visit: No Status: Acute (6) Nicotine dependence Current Visit: No Status: Chronic Qualifiers: Nicotine product type: cigarettes Substance use status: uncomplicated Qualified Code(s): F17.210 - Nicotine dependence, cigarettes, uncomplicated (7) Hypertension Current Visit: No Status: Chronic Qualifiers: Hypertension type: essential hypertension Qualified Code(s): I10 - Essential (primary) hypertension (8) Gouty arthropathy Current Visit: No Status: Chronic Comment: not medicated for a year as per hx. (9) Alcohol related seizure Current Visit: Yes Status: Resolved - Initial Treatment Plan Initial Treatment Plan: Continue inpatient detoxification
--- NOTE | 2019-02-18 13:24 | PN ---
[facility] CIWA - CIWA Score Nausea/Vomitin-Mild Nausea/No Vomiting Muscle Tremors: 3 Anxiety: 3 Agitation: 2 Paroxysmal Sweats: 1-Minimal Palms Moist Orientation: 1-Uncertain about Date Tacttile Disturbances: 0-None Auditory Disturbances: 0-None Visual Disturbances: 0-None Headache: 1-Very Mild CIWA-Ar Total Score: 12 BHS COWS - Scale Resting Pulse: 1= [place] 81-100 Sweatin= Chills/Flushing Restless Observation: 1= Difficult to Sit Still Pupil Size: 1= Pupils >than Normal Bone or Joint Aches: 1= Mild Discomfort Runny Nose/ Eye Tearin= Nasal Congestion GI Upset > 30mins: 1= Stomach Cramp Tremor Observation of Outstretched Hands: 1= Tremor [place], Not Seen Yawning Observation: 1= 1-2x During Session Anxiety or Irritability: 1=Feels Anxious/Irritable Goose Flesh Skin: 3=Piloerection COWS Score: 13 S Progress Note (SOAP) Subjective: pt doing well. no complaints today on the detox protocols O: Vital Signs - 24 hr 02/17/19 02/17/19 02/18/19 18:37 21:24 00:30 Temperature 98.1 F 98.4 F Pulse Rate 64 61 Respiratory 16 18 18 Rate Blood Pressure 175/86 H 159/85 02/18/19 02/18/19 02/18/19 03:30 06:00 13:21 Temperature 97.3 F L 97.9 F Pulse Rate 45 L 47 L Respiratory 18 18 18 Rate Blood Pressure 118/69 144/73 Laboratory Tests 02/18/19 02/18/19 02/18/19 07:00 07:00 07:00 WBC 8.5 RBC 5.16 Hgb 13.9 Hct 43.3 MCV 84.0 MCH 27.0 MCHC 32.1 RDW 16.1 H Plt Count 257 D MPV 7.8 Sodium 143 Potassium 4.7 Chloride 108 H Carbon Dioxide 31 Anion Gap 4 L BUN 14.6 Creatinine 1.1 Est GFR (CKD-EPI)AfAm 85.91 Est GFR (CKD-EPI)NonAf 74.12 Random Glucose 117 H Calcium 9.0 Total Bilirubin 0.2 AST 11 L ALT 26 Alkaline Phosphatase 81 Total Protein 7.0 Albumin 3.4 RPR Titer Nonreactive bradycardia nl labs a/p: continue detox protocols- pt doing well.
[2019-02-18] MEDS: THIAMINE HCL 100 MG TABLET (FP) PO SCH (22:30)
[2019-02-19] MEDS: chlordiazePOXIDE 5 MG CAPSULE PO SCH ×3 (06:14→22:26)
[2019-02-19] MEDS ORDERED: METHADONE HCL 10 MG TABLET (FOR DETOX USE ONLY) PO ONE (10:00)
[2019-02-19] MEDS: PRENATAL VITAMINS W/ FOLIC ACID TABLET (FP) PO SCH (10:35)
--- NOTE | 2019-02-19 12:16 | PN ---
S CIWA - CIWA Score Nausea/Vomitin Muscle Tremors: 2 Anxiety: 2 Agitation: 2 Paroxysmal Sweats: No Perspiration Orientation: 0-Oriented Tacttile Disturbances: 1-Very Mild Itch/Numbness Auditory Disturbances: 0-None Visual Disturbances: 0-None Headache: 2-Mild CIWA-Ar Total Score: 11 BHS COWS - Scale Resting Pulse: 0= [place] 80 or Below Sweatin= Chills/Flushing Restless Observation: 1= Difficult to Sit Still Pupil Size: 1= Pupils >than Normal Bone or Joint Aches: 2= Severe Diffuse Aches Runny Nose/ Eye Tearin= Nasal Congestion GI Upset > 30mins: 2= Nausea/Diarrhea Tremor Observation of Outstretched Hands: 2= Slight Tremor Visible Yawning Observation: 1= 1-2x During Session Anxiety or Irritability: 2=Irritable/Anxious Goose Flesh Skin: 0=Smooth Skin COWS Score: 13 BHS Progress Note (SOAP) Subjective: alert,irritable,anxious,interrupted sleep,tremor,pain in the body and back Objective: 02/19/19 12:13 Vital Signs Temperature 98.1 F 02/19/19 09:28 Pulse Rate 71 02/19/19 09:28 Respiratory Rate 18 02/19/19 09:28 Blood Pressure 139/63 02/19/19 09:28 O2 Sat by Pulse Oximetry (%) Laboratory Last Values WBC 8.5 K/mm3 (4.0-10.0) 02/18/19 07:00 RBC 5.16 M/mm3 (4.00-5.60) 02/18/19 07:00 Hgb 13.9 GM/dL (11.7-16.9) 02/18/19 07:00 Hct 43.3 % (35.4-49) 02/18/19 07:00 MCV 84.0 fl (80-96) 02/18/19 07:00 MCH 27.0 pg (25.7-33.7) 02/18/19 07:00 MCHC 32.1 g/dl (32.0-35.9) 02/18/19 07:00 RDW 16.1 % (11.9-15.9) H 02/18/19 07:00 Plt Count 257 K/MM3 (134-434) D 02/18/19 07:00 MPV 7.8 fl (7.5-11.1) 02/18/19 07:00 Sodium 143 mmol/L (136-145) 02/18/19 07:00 Potassium 4.7 mmol/L (3.5-5.1) 02/18/19 07:00 Chloride 108 mmol/L (98-107) H 02/18/19 07:00 Carbon Dioxide 31 mmol/L (21-32) 02/18/19 07:00 Anion Gap 4 MMOL/L (8-16) L 02/18/19 07:00 BUN 14.6 mg/dL (7-18) 02/18/19 07:00 Creatinine 1.1 mg/dL (0.55-1.3) 02/18/19 07:00 Est GFR (CKD-EPI)AfAm 85.91 02/18/19 07:00 Est GFR (CKD-EPI)NonAf 74.12 02/18/19 07:00 Random Glucose 117 mg/dL (74-106) H 02/18/19 07:00 Calcium 9.0 mg/dL (8.5-10.1) 02/18/19 07:00 Total Bilirubin 0.2 mg/dL (0.2-1) 02/18/19 07:00 AST 11 U/L (15-37) L 02/18/19 07:00 ALT 26 U/L (13-61) 02/18/19 07:00 Alkaline Phosphatase 81 U/L (45-117) 02/18/19 07:00 Total Protein 7.0 g/dl (6.4-8.2) 02/18/19 07:00 Albumin 3.4 g/dl (3.4-5.0) 02/18/19 07:00 RPR Titer Nonreactive (NONREACTIVE) 02/18/19 07:00 Assessment: 02/19/19 12:14 withdrawal symptom Plan: continue detox methadone and librim ,initial glucose 117,fasting glucose in am
[2019-02-19] MEDS: THIAMINE HCL 100 MG TABLET (FP) PO SCH (22:26)
[2019-02-20] MEDS ORDERED: chlordiazePOXIDE HCL 10 MG CAPSULE PO PRN
[2019-02-20] MEDS ORDERED: METHADONE HCL 5 MG TABLET (FOR DETOX USE ONLY) PO ONE (06:00)
[2019-02-20] MEDS: chlordiazePOXIDE HCL 10 MG CAPSULE PO SCH ×3 (08:00→21:36)
[2019-02-20] MEDS: PRENATAL VITAMINS W/ FOLIC ACID TABLET (FP) PO SCH (10:20)
--- NOTE | 2019-02-20 11:44 | PN ---
[facility] CIWA - CIWA Score Nausea/Vomitin-Mild Nausea/No Vomiting Muscle Tremors: 1-None Visible, but [place] Anxiety: 3 Agitation: 2 Paroxysmal Sweats: No Perspiration Orientation: 0-Oriented Tacttile Disturbances: 0-None Auditory Disturbances: 0-None Visual Disturbances: 0-None Headache: 2-Mild CIWA-Ar Total Score: 9 BHS COWS - Scale Resting Pulse: 0= [place] 80 or Below Sweatin= No chills or Flushing Restless Observation: 1= Difficult to Sit Still Pupil Size: 1= Pupils >than Normal Bone or Joint Aches: 1= Mild Discomfort Runny Nose/ Eye Tearin= Nasal Congestion GI Upset > 30mins: 1= Stomach Cramp Tremor Observation of Outstretched Hands: 1= Tremor [place], Not Seen Yawning Observation: 1= 1-2x During Session Anxiety or Irritability: 2=Irritable/Anxious Goose Flesh Skin: 0=Smooth Skin COWS Score: 9 [facility] Progress Note (SOAP) Subjective: alert,irritable,anxious,interrupted sleep,pain in the body and back Objective: 02/20/19 11:42 Vital Signs Temperature 96.8 F L 02/20/19 09:25 Pulse Rate 66 02/20/19 09:25 Respiratory Rate 18 02/20/19 09:25 Blood Pressure 134/68 02/20/19 09:25 O2 Sat by Pulse Oximetry (%) Laboratory Last Values WBC 8.5 K/mm3 (4.0-10.0) 02/18/19 07:00 RBC 5.16 M/mm3 (4.00-5.60) 02/18/19 07:00 Hgb 13.9 GM/dL (11.7-16.9) 02/18/19 07:00 Hct 43.3 % (35.4-49) 02/18/19 07:00 MCV 84.0 fl (80-96) 02/18/19 07:00 MCH 27.0 pg (25.7-33.7) 02/18/19 07:00 MCHC 32.1 g/dl (32.0-35.9) 02/18/19 07:00 RDW 16.1 % (11.9-15.9) H 02/18/19 07:00 Plt Count 257 K/MM3 (134-434) D 02/18/19 07:00 MPV 7.8 fl (7.5-11.1) 02/18/19 07:00 Sodium 143 mmol/L (136-145) 02/18/19 07:00 Potassium 4.7 mmol/L (3.5-5.1) 02/18/19 07:00 Chloride 108 mmol/L (98-107) H 02/18/19 07:00 Carbon Dioxide 31 mmol/L (21-32) 02/18/19 07:00 Anion Gap 4 MMOL/L (8-16) L 02/18/19 07:00 BUN 14.6 mg/dL (7-18) 02/18/19 07:00 Creatinine 1.1 mg/dL (0.55-1.3) 02/18/19 07:00 Est GFR (CKD-EPI)AfAm 85.91 02/18/19 07:00 Est GFR (CKD-EPI)NonAf 74.12 02/18/19 07:00 Random Glucose 117 mg/dL (74-106) H 02/18/19 07:00 Fasting Glucose 85 mg/dL (74-106) 02/20/19 07:00 Calcium 9.0 mg/dL (8.5-10.1) 02/18/19 07:00 Total Bilirubin 0.2 mg/dL (0.2-1) 02/18/19 07:00 AST 11 U/L (15-37) L 02/18/19 07:00 ALT 26 U/L (13-61) 02/18/19 07:00 Alkaline Phosphatase 81 U/L (45-117) 02/18/19 07:00 Total Protein 7.0 g/dl (6.4-8.2) 02/18/19 07:00 Albumin 3.4 g/dl (3.4-5.0) 02/18/19 07:00 RPR Titer Nonreactive (NONREACTIVE) 02/18/19 07:00 02/20/19 11:43 fasting glucose 85 normal Assessment: 02/20/19 11:43 withdrawal symptom Plan: continue detox methadone and librium regimen,discharge in am
[2019-02-20] MEDS: THIAMINE HCL 100 MG TABLET (FP) PO SCH (22:24)
[2019-02-21] MEDS ORDERED: chlordiazePOXIDE HCL 10 MG CAPSULE PO ONE (05:00)
[2019-02-21 07:37] VITALS: BP 131/83; PULSE 61; TEMP 97.9
--- NOTE | 2019-02-21 09:17 | DS ---
[facility] Detox Discharge Summary Admission Date: 02/17/19 Discharge Date: 02/21/19 - History Present History: Alcohol Dependence, Opioid Dependence, Pcp Dependence - Physical Exam Results Vital Signs: Vital Signs Temperature 97.9 F 02/21/19 07:37 Pulse Rate 61 02/21/19 07:37 Respiratory Rate 18 02/21/19 07:37 Blood Pressure 131/83 02/21/19 07:37 O2 Sat by Pulse Oximetry (%) Pertinent Admission Physical Exam Findings: pt arrived in withdrawals Laboratory Tests 02/18/19 02/18/19 02/18/19 07:00 07:00 07:00 WBC 8.5 RBC 5.16 Hgb 13.9 Hct 43.3 MCV 84.0 MCH 27.0 MCHC 32.1 RDW 16.1 H Plt Count 257 D MPV 7.8 Sodium 143 Potassium 4.7 Chloride 108 H Carbon Dioxide 31 Anion Gap 4 L BUN 14.6 Creatinine 1.1 Est GFR (CKD-EPI)AfAm 85.91 Est GFR (CKD-EPI)NonAf 74.12 Random Glucose 117 H Fasting Glucose Calcium 9.0 Total Bilirubin 0.2 AST 11 L ALT 26 Alkaline Phosphatase 81 Total Protein 7.0 Albumin 3.4 RPR Titer Nonreactive 02/20/19 07:00 WBC RBC Hgb Hct MCV MCH MCHC RDW Plt Count MPV Sodium Potassium Chloride Carbon Dioxide Anion Gap BUN Creatinine Est GFR (CKD-EPI)AfAm Est GFR (CKD-EPI)NonAf Random Glucose Fasting Glucose 85 Calcium Total Bilirubin AST ALT Alkaline Phosphatase Total Protein Albumin RPR Titer today pt is aaox3 ambulating no acute distress no s/s of withdrawals - Treatment Hospital Course: Detox Protocol Followed, Detoxed Safely, Responded well, Discharged Condition Good, Rehab Referral Accepted Patient has Accepted a Rehab Referral to: pt declined rehab;referral provided - Medication Discharge Medications: Ambulatory Orders NK [No Known Home Medication] 01/03/19 - Diagnosis (1) Substance induced mood disorder Current Visit: Yes Status: Acute (2) Bipolar disorder Current Visit: No Status: Acute (3) Phencyclidine dependence Current Visit: Yes Status: Chronic (4) Seizure Current Visit: No Status: Suspected (5) Substance induced mood disorder Current Visit: No Status: Acute (6) Substance-induced sleep disorder Current Visit: No Status: Acute (7) Alcohol dependence with uncomplicated withdrawal Current Visit: Yes Status: Chronic (8) Depression Current Visit: No Status: Chronic Qualifiers: Depression Type: unspecified Qualified Code(s): F32.9 - Major depressive disorder, single episode, unspecified (9) Encounter for HIV (human immunodeficiency virus) test Current Visit: Yes Status: Chronic (10) Encounter for hepatitis C virus screening test for high risk patient Current Visit: Yes Status: Chronic (11) Excoriation (skin-picking) disorder Current Visit: Yes Status: Chronic (12) Gouty arthropathy Current Visit: No Status: Chronic (13) Hypertension Current Visit: Yes Status: Chronic Qualifiers: Hypertension type: essential hypertension Qualified Code(s): I10 - Essential (primary) hypertension (14) Mood disorder Current Visit: No Status: Chronic (15) Nicotine dependence Current Visit: Yes Status: Chronic Qualifiers: Nicotine product type: cigarettes Substance use status: uncomplicated Qualified Code(s): F17.210 - Nicotine dependence, cigarettes, uncomplicated (16) Opioid dependence, uncomplicated Current Visit: Yes Status: Chronic (17) PCP (phencyclidine) abuse Current Visit: Yes Status: Chronic (18) Type 2 diabetes mellitus Current Visit: Yes Status: Chronic Qualifiers: Diabetes mellitus fdc insulin use: without termite inspector use Diabetes mellitus complication status: without complication Qualified Code(s): E11.9 - Type 2 diabetes mellitus without complications (19) Substance induced mood disorder Current Visit: No Status: Suspected - AMA Did Patient Leave Against Medical Advice: No
== END 2019-02-21 09:05 | disposition home or self-care (01) | DRG 773 ==
LOC: YASAS 18:10 → Y6N 19:34
PROVIDERS: ADMIT Surgery; ATTEND Surgery
PROC: HZ2ZZZZ Detoxification Services for Substance Abuse Treatment (ICD-10-PCS; principal; 2019-02-17)
DX: F10.230 Alcohol dependence with withdrawal, uncomplicated (principal); F11.20 Opioid dependence, uncomplicated; F16.20 Hallucinogen dependence, uncomplicated; F17.210 Nicotine dependence, cigarettes, uncomplicated; F39 Unspecified mood [affective] disorder; F32.9 Major depressive disorder, single episode, unspecified; F42.4 Excoriation (skin-picking) disorder; F19.24 Other psychoactive substance dependence with psychoactive substance-induced mood disorder; I10 Essential (primary) hypertension; E11.9 Type 2 diabetes mellitus without complications; Z79.84 Long term (current) use of oral hypoglycemic drugs; R56.9 Unspecified convulsions
CPT/HCPCS: 36415; 80053; 82947; 85027; 86593

== ENCOUNTER 2020-01-20 14:19 | Inpatient (IN) | payer OTHER ==
--- NOTE | 2020-01-20 16:38 | HP ---
COWS - Scale Resting Pulse: 0= [place] 80 or Below Sweatin= No chills or Flushing Restless Observation: 1= Difficult to Sit Still Pupil Size: 0= Normal to Room Light Bone or Joint Aches: 0= None Runny Nose/ Eye Tearin= None GI Upset > 30mins: 0= None Tremor Observation: 0= None Yawning Observation: 0= None Anxiety or Irritability: 0= None Goose Flesh Skin: 0=Smooth Skin COWS Score: 1 CIWA Score Nausea/Vomitin-No Nausea/No Vomiting Muscle Tremors: None Anxiety: 0-No Anxiety, at Ease Agitation: 1-Slight > Activity Paroxysmal Sweats: No Perspiration Orientation: 1-Uncertain about Date Tacttile Disturbances: 0-None Auditory Disturbances: 0-None Visual Disturbances: 0-None Headache: 0-None Present CIWA-Ar Total Score: 2 - Admission Criteria OASAS Guidelines: Admission for Medically Managed Detox: Requires at least one of the followin. CIWA greater than 12 2. Seizures within the past 24 hours 3. Delirium tremens within the past 24 hours 4. Hallucinations within the past 24 hours 5. Acute intervention needed for co occurring medical disorder 6. Acute intervention needed for co occurring psychiatric disorder 7. Severe withdrawal that cannot be handled at a lower level of care (continued vomiting, continued diarrhea, abnormal vital signs) requiring intravenous medication and/or fluids 8. Admitting History and Physical - Admission Chief Complaint: Patient is a 59 year old male who presetns for alcohol, and heroin detox. - Smoking History Smoking history: Current every day smoker Have you smoked in the past 12 months: Yes Aproximately how many cigarettes per day: 20 - Alcohol/Substance Use Hx Alcohol Use: Yes Admission [facility] Allergies/Adverse Reactions: Allergies Allergy/AdvReac Type Severity Reaction Status Date / Time No Known Allergies Allergy Verified 01/20/20 16:57 History of Present Illness: 59 y.o. male requesting detox from alcohol use , reports 3-4 cans x 24 oz each daily , first age of use 19 , denies seizures , blackouts , denies tremors , latest use today . Used to drink alcohol more heavily in the past , liquor since age 19 through 22 when he was incarcerated x 17 years and had a seizure . Never on meds and no recurrence of seizures . heroin : " as much money as I have " 3-4 bags/day via inhalation denies IVDU , OD most recently 1 yr ago . @ [facility] MDD 160 mg , planning to return to [facility] after detox , states missed appt 1 week ago . Latest use yesterday . PCP - 3 bags/day denies other illicits tobacco : 1/2 ppd not interested in NRT or smoking cessation PMHX / PSHX : denies PSYCh : denies hx , denies current plan , reports " I wish I were " , denies SI /SA . Exam Limitations: Clinical Condition - Review of Systems Constitutional: No Symptoms Reported EENT: reports: Other (glasses) Respiratory: reports: Cough (in the morning) GI: reports: Diarrhea (since 1-2 weeks ago) : reports: No Symptoms Reported Musculoskeletal: reports: No Symptoms Reported Integumentary: reports: No Symptoms Reported Neuro: reports: No Symptoms reported Endocrine: reports: No Symptoms Reported Hematology: reports: No Symptoms Reported Psychiatric: reports: Depressed, Disorientated Patient History - Patient Medical History Hx Anemia: No Hx Asthma: No Hx Chronic Obstructive Pulmonary Disease (COPD): No Hx Cancer: No Hx Cardiac Disorders: No Hx Congestive Heart Failure: No Hx Hypertension: Yes Hx Hypercholesterolemia: No Hx Pacemaker: No HX Cerebrovascular Accident: No Hx Seizures: No Hx Dementia: No Hx Diabetes: No Hx Gastrointestinal Disorders: No Hx Liver Disease: No Hx Genitourinary Disorders: No Hx Sexually Transmitted Disorders: No Hx Renal Disease (ESRD): No Hx Thyroid Disease: No Hx Human Immunodeficiency Virus (HIV): No (NEGATIVE HX last 2016 ) Hx Hepatitis C: No Hx Depression: No Hx Suicide Attempt: No Hx Bipolar Disorder: No Hx Schizophrenia: No - Patient Surgical History Past Surgical History: No Hx Neurologic Surgery: No Hx Cataract Extraction: No Hx Cardiac Surgery: No Hx Lung Surgery: No Hx Breast Surgery: No Hx Breast Biopsy: No Hx Abdominal Surgery: No Hx Appendectomy: No Hx Cholecystectomy: No Hx Genitourinary Surgery: No Hx Section: No Hx Orthopedic Surgery: No Anesthesia Reaction: No - PPD History Date: 12/03/18 Results: not read - Smoking Cessation Smoking history: Current every day smoker Have you smoked in the past 12 months: Yes Aproximately how many cigarettes per day: 20 Cigars Per Day: 0 Hx Chewing Tobacco Use: No Initiated information on smoking cessation: Yes 'Breaking Loose' booklet given: 01/20/20 - Substances abused Alcohol Substance route: Oral Frequency: Daily Amount used: BEER- 1 SIX PK Age of first use: 13 Date of last use: 01/19/20 Heroin Substance route: Inhalation Frequency: Daily Amount used: 4 BAGS Age of first use: 19 Date of last use: 01/19/20 Admission Physical Exam BHS - Physical General Appearance: Yes: No Apparent Distress, Nourished, Irritable, Anxious HEENTM: Yes: EOMI, Hearing grossly Normal, Normocephalic, YANET Respiratory: Yes: Lungs Clear, Normal Breath Sounds, No Accessory Muscle Use Neck: Yes: Supple Cardiology: Yes: Regular Rhythm, Regular Rate, S1, S2 Abdominal: Yes: Normal Bowel Sounds, Non Tender, Flat, Soft Musculoskeletal: Yes: full range of Motion, Gait Steady Neurological: Yes: Alert, Motor Strength 5/5, Depressed Affect Integumentary: Yes: Dry, Warm - Diagnostic (1) Alcohol use disorder Current Visit: Yes Status: Chronic (2) Opioid use disorder Current Visit: Yes Status: Chronic Breathalyzer - Breathalyzer Breathalyzer: 0 Urine Drug Screen - Test Device Lot number: [id number] Expiration date: 02/23/21 - Control Is test valid?: Yes - Results Drug screen NEGATIVE: No Urine drug screen results: MTD-Methadone Inpatient Rehab Admission - Rehab Decision to Admit Inpatient rehab admission?: No
[2020-01-20 16:55] VITALS: BMI 26.1
[2020-01-20] MEDS ORDERED: IBUPROFEN 400 MG TABLET (FP) PO PRN (16:55)
[2020-01-20] MEDS ORDERED: MENTHOL/PHENOL 1 EACH UD MM PRN (16:55)
[2020-01-20] MEDS ORDERED: ONDANSETRON *ODT* 4 MG TABLET SL ONE (16:55)
[2020-01-20] MEDS ORDERED: ACETAMINOPHEN 325 MG TABLET (FP) PO PRN ×2 (16:55)
[2020-01-20] MEDS ORDERED: METHOCARBAMOL 500 MG TABLET PO PRN (16:55)
[2020-01-20] MEDS ORDERED: MAGNESIUM HYDROX 2400MG/30ML ORAL SUSPENSION 30 ML CUP PO PRN (16:55)
[2020-01-20] MEDS ORDERED: MAGNESIUM CITRATE 300 ML BOTTLE PO PRN (16:55)
[2020-01-20] MEDS ORDERED: BISMUTH SUBSALICYLATE 524 MG/30 ML UD PO PRN (16:55)
[2020-01-20] MEDS ORDERED: MAG HYDROX/AL HYDROX/SIMETH 30 ML UNIT-DOSE CUP PO PRN (16:55)
[2020-01-20] MEDS ORDERED: cloNIDine HCL 0.1 MG TABLET PO PRN (16:57)
[2020-01-20] MEDS ORDERED: diazePAM 5 MG TABLET PO PRN (16:59)
[2020-01-20] MEDS ORDERED: hydrOXYzine PAMOATE 25 MG CAPSULE (FP) PO SCH (18:00)
[2020-01-20] MEDS: THIAMINE HCL 100 MG TABLET (FP) PO SCH (22:38)
[2020-01-20] MEDS: MELATONIN 5 MG TABLETS PO SCH (22:38)
--- NOTE | 2020-01-21 08:58 | PN ---
S CIWA - CIWA Score Nausea/Vomitin-Mild Nausea/No Vomiting Muscle Tremors: 2 Anxiety: 2 Agitation: 2 Paroxysmal Sweats: No Perspiration Orientation: 0-Oriented Tacttile Disturbances: 0-None Auditory Disturbances: 0-None Visual Disturbances: 0-None Headache: 1-Very Mild CIWA-Ar Total Score: 8 BHS COWS - Scale Resting Pulse: 0= [place] 80 or Below Sweatin= No chills or [place] Restless Observation: 0= Sits Still Pupil Size: 1= Pupils >than Normal Bone or Joint Aches: 1= Mild Discomfort Runny Nose/ Eye Tearin= None GI Upset > 30mins: 2= Nausea/Diarrhea Tremor Observation of Outstretched Hands: 2= Slight Tremor Visible Yawning Observation: 0= None Anxiety or Irritability: 2=Irritable/Anxious Goose Flesh Skin: 0=Smooth Skin COWS Score: 8 S Progress Note (SOAP) Subjective: 59 years old male admitted on 01/20/20 for alcohol and opiate withdrawal sx management treating with valium prn and methadone detox regiment doing well with valium prn and methadone feeling ok today prefers to resting in bed limited conversation with staff Objective: 01/21/20 10:35 Vital Signs - 24 hr 01/20/20 01/20/20 01/20/20 16:53 17:07 18:10 Temperature 98.2 F 98.2 F 97.3 F L Pulse Rate 68 68 57 L Respiratory 18 18 18 Rate Blood Pressure 139/81 139/81 162/82 O2 Sat by Pulse Oximetry (%) 01/21/20 01/21/20 06:44 08:30 Temperature 98.0 F 96.1 F L Pulse Rate 57 L 64 Respiratory 18 18 Rate Blood Pressure 129/70 132/73 O2 Sat by Pulse 97 97 Oximetry (%) Laboratory Tests 01/21/20 01/21/20 08:00 08:00 WBC 8.0 RBC 5.03 Hgb 13.4 Hct 42.9 MCV 85.3 MCH 26.6 MCHC 31.2 L RDW 15.4 Plt Count 209 MPV 8.2 Sodium 144 Potassium 4.4 Chloride 111 H Carbon Dioxide 30 Anion Gap 3 L BUN 16.7 Creatinine 1.1 Est GFR (CKD-EPI)AfAm 85.91 Est GFR (CKD-EPI)NonAf 74.12 Random Glucose 96 Calcium 9.4 Total Bilirubin 0.5 AST 50 H ALT 44 Alkaline Phosphatase 63 Total Protein 6.4 Albumin 3.0 L lab noted Assessment: 01/21/20 10:36 alcohol and opiate withdrawal Plan: valium prn and methadone regiment s
[2020-01-21 09:54] LABS: HEMATOCRIT 42.9 % (35.4-49); HEMOGLOBIN 13.4 GM/dL (11.7-16.9); MCH 26.6 pg (25.7-33.7); MCHC 31.2 g/dl (32.0-35.9); MEAN CELL VOLUME 85.3 fl (80-96); MEAN PLT VOLUME 8.2 fl (7.5-11.1); PLATELET COUNT 209 K/MM3 (134-434); RBC 5.03 M/mm3 (4.00-5.60); RDW 15.4 % (11.9-15.9)
[2020-01-21] MEDS ORDERED: METHADONE HCL 5 MG TABLET (FOR DETOX USE ONLY) PO ONE (10:00)
[2020-01-21 10:13] LABS: BILIRUBIN,TOTAL 0.5 mg/dL (0.2-1); BLOOD UREA NITROGEN 16.7 mg/dL (7-18); CALCIUM 9.4 mg/dL (8.5-10.1); CREATININE 1.1 mg/dL (0.55-1.3); POTASSIUM 4.4 mmol/L (3.5-5.1); TOT PROT 6.4 g/dl (6.4-8.2)
[2020-01-21] MEDS: PRENATAL VITAMINS W/ FOLIC ACID TABLET (FP) PO SCH (10:55)
--- NOTE | 2020-01-21 13:02 | CONSULT ---
[facility] Psychiatric Consult - Data Date of interview: 01/21/20 Admission source: [facility] Identifying data: Patient is approached at bedside for the psychiatric interview. Mr Royal dismisses MD. Verbally abusive. Profane. Evaluation is refused by the patient. Nursing staff is made aware.
[2020-01-21] MEDS: THIAMINE HCL 100 MG TABLET (FP) PO SCH (23:10)
[2020-01-21] MEDS: MELATONIN 5 MG TABLETS PO SCH (23:10)
[2020-01-22] MEDS: PRENATAL VITAMINS W/ FOLIC ACID TABLET (FP) PO SCH (09:10)
[2020-01-22] MEDS ORDERED: METHADONE HCL 10 MG TABLET (FOR DETOX USE ONLY) PO ONE (10:00)
--- NOTE | 2020-01-22 10:28 | PN ---
[facility] CIWA - CIWA Score Nausea/Vomitin-No Nausea/No Vomiting Muscle Tremors: 1-None Visible, but [place] Anxiety: 1-Mildly Anxious Agitation: 0-Normal Activity Paroxysmal Sweats: 1-Minimal [place] Moist Orientation: 0-Oriented Tacttile Disturbances: 1-Very Mild Itch/Numbness Auditory Disturbances: 0-None Visual Disturbances: 0-None Headache: 0-None Present CIWA-Ar Total Score: 4 BHS COWS - Scale Resting Pulse: 0= [place] 80 or Below Sweatin= No chills or [place] Restless Observation: 0= Sits Still Pupil Size: 0= Normal to Room Light Bone or Joint Aches: 1= Mild Discomfort Runny Nose/ Eye Tearin= None GI Upset > 30mins: 1= Stomach Cramp Tremor Observation of Outstretched Hands: 1= Tremor [place], Not Seen Yawning Observation: 0= None Anxiety or Irritability: 1=Feels Anxious/Irritable Goose Flesh Skin: 0=Smooth Skin COWS Score: 4 S Progress Note (SOAP) Subjective: 59 years old male admitted on 01/20/20 for alcohol and opiate withdrawal sx management treating with valium prn and methadone detox regiment feeling better today discussing medication assisted treatment program and encourage to olive picker narcan from pharmacy Objective: 01/22/20 10:27 Vital Signs - 24 hr 01/21/20 01/21/20 01/21/20 12:30 16:37 21:08 Temperature 97.1 F L 97.3 F L 98 F Pulse Rate 67 56 L 53 L Respiratory 18 18 17 Rate Blood Pressure 130/73 140/79 137/78 O2 Sat by Pulse 97 100 Oximetry (%) 01/22/20 01/22/20 05:48 08:37 Temperature 97.3 F L 97.4 F L Pulse Rate 60 63 Respiratory 18 18 Rate Blood Pressure 138/80 148/80 O2 Sat by Pulse 100 Oximetry (%) Laboratory Tests 01/20/20 01/21/20 01/21/20 17:30 08:00 08:00 WBC 8.0 RBC 5.03 Hgb 13.4 Hct 42.9 MCV 85.3 MCH 26.6 MCHC 31.2 L RDW 15.4 Plt Count 209 MPV 8.2 Sodium Potassium Chloride Carbon Dioxide Anion Gap BUN Creatinine Est GFR (CKD-EPI)AfAm Est GFR (CKD-EPI)NonAf Random Glucose Calcium Total Bilirubin AST ALT Alkaline Phosphatase Total Protein Albumin Syphilis Serology Non-reactive COVID-19 ([place]) Not detected 01/21/20 08:00 WBC RBC Hgb Hct MCV MCH MCHC RDW Plt Count MPV Sodium 144 Potassium 4.4 Chloride 111 H Carbon Dioxide 30 Anion Gap 3 L BUN 16.7 Creatinine 1.1 Est GFR (CKD-EPI)AfAm 85.91 Est GFR (CKD-EPI)NonAf 74.12 Random Glucose 96 Calcium 9.4 Total Bilirubin 0.5 AST 50 H ALT 44 Alkaline Phosphatase 63 Total Protein 6.4 Albumin 3.0 L Syphilis Serology COVID-19 ([place]) lab noted Assessment: 01/22/20 10:28 alcohol and opiate withdrawal 01/22/20 10:29 Plan: valium prn and methadone regiment
[2020-01-22] MEDS: MELATONIN 5 MG TABLETS PO SCH (22:42)
[2020-01-22] MEDS: THIAMINE HCL 100 MG TABLET (FP) PO SCH (22:42)
[2020-01-23] MEDS ORDERED: METHADONE HCL 5 MG TABLET (FOR DETOX USE ONLY) PO ONE (06:00)
[2020-01-23 06:36] VITALS: BP 149/79; PULSE 50; TEMP 98.2
[2020-01-23] MEDS: PRENATAL VITAMINS W/ FOLIC ACID TABLET (FP) PO SCH (10:43)
--- NOTE | 2020-01-23 10:58 | DS ---
[facility] Detox Discharge Summary Admission Date: 01/20/20 Discharge Date: 01/23/20 - History Present History: Alcohol Dependence, Opioid Dependence Additional Comments: 59 years old male admitted on 01/20/20 for alcohol and opiate withdrawal sx management treated with valium prn and methadone detox regiment mr thorne was irritalbe and aggressive upon arrival to the detox unit recent behavioral changed to calm and cooperative upon discharge to community support aftercare alert oriented x 3 speech clearly coherently ambulating steady gaits respiratory clear lung sounds bilaterally on auscultation abdomen soft no rebound tenderness extremities full range of motion Pertinent Past History: time for discharge 58 minutes mr thorne accepts AA and NA "I am here for resting" inform mr thorne regarding bp monitoring and bgm monitoring or [id number] rule out diabetes discussing risks of bp elevation and glucose serum elevation - Physical Exam Results Vital Signs: Vital Signs Temperature 98.2 F 01/23/20 06:35 Pulse Rate 50 L 01/23/20 06:35 Respiratory Rate 18 01/23/20 06:35 Blood Pressure 149/79 01/23/20 06:35 O2 Sat by Pulse Oximetry (%) 97 01/23/20 06:35 Pertinent Admission Physical Exam Findings: alcohol and opiate withdrawal Vital Signs - 24 hr 01/22/20 01/22/20 01/23/20 12:43 16:45 06:35 Temperature 97.1 F L 97.3 F L 98.2 F Pulse Rate 61 57 L 50 L Respiratory 18 18 18 Rate Blood Pressure 166/83 148/76 149/79 O2 Sat by Pulse 96 97 Oximetry (%) Laboratory Tests bp elevation strong recommend mr thorne engaging with community health service such as [facility] for bp monitoring for possible antihypertensive medication 01/20/20 01/21/20 01/21/20 17:30 08:00 08:00 WBC 8.0 RBC 5.03 Hgb 13.4 Hct 42.9 MCV 85.3 MCH 26.6 MCHC 31.2 L RDW 15.4 Plt Count 209 MPV 8.2 Sodium Potassium Chloride Carbon Dioxide Anion Gap BUN Creatinine Est GFR (CKD-EPI)AfAm Est GFR (CKD-EPI)NonAf Random Glucose Calcium Total Bilirubin AST ALT Alkaline Phosphatase Total Protein Albumin Syphilis Serology Non-reactive COVID-19 ([place]) Not detected 01/21/20 08:00 WBC RBC Hgb Hct MCV MCH MCHC RDW Plt Count MPV Sodium 144 Potassium 4.4 Chloride 111 H Carbon Dioxide 30 Anion Gap 3 L BUN 16.7 Creatinine 1.1 Est GFR (CKD-EPI)AfAm 85.91 Est GFR (CKD-EPI)NonAf 74.12 Random Glucose 96 Calcium 9.4 Total Bilirubin 0.5 AST 50 H ALT 44 Alkaline Phosphatase 63 Total Protein 6.4 Albumin 3.0 L Syphilis Serology COVID-19 ([place]) lab noted - Treatment Hospital Course: Detox Protocol Followed, Detoxed Safely, Responded well, Discharged Condition Good, Rehab Referral Accepted Patient has Accepted a Rehab Referral to: community AA/NA support groups and meetings - Medication Discharge Medications: Ambulatory Orders Naloxone HCl [Narcan] 4 mg NS ASDIR PRN #1 spray 01/22/20 - Diagnosis (1) Alcohol use disorder Current Visit: Yes Status: Acute (2) Opioid use disorder Current Visit: Yes Status: Acute (3) Substance induced mood disorder Current Visit: Yes Status: Suspected (4) Hypertension Current Visit: Yes Status: Chronic Qualifiers: Hypertension type: essential hypertension Qualified Code(s): I10 - Essential (primary) hypertension (5) Substance induced mood disorder Current Visit: Yes Status: Suspected - AMA Did Patient Leave Against Medical Advice: No CIWA Score - CIWA Score Nausea/Vomitin-No Nausea/No Vomiting Muscle Tremors: 1-None Visible, but [place] Anxiety: 1-Mildly Anxious Agitation: 0-Normal Activity Paroxysmal Sweats: No Perspiration Orientation: 0-Oriented Tacttile Disturbances: 0-None Auditory Disturbances: 0-None Visual Disturbances: 0-None Headache: 0-None Present CIWA-Ar Total Score: 2 COWS (PN) - Opiate Withdrawal Resting Pulse: 0= [place] 80 or Below Sweatin= No chills or Flushing Restless Observation: 0= Sits Still Pupil Size: 0= Normal to Room Light Bone or Joint Aches: 0= None Runny Nose/ Eye Tearin= None GI Upset > 30mins: 0= None Tremor Observation of Outstretched Hands: 1= Tremor [place], Not Seen Yawning Observation: 0= None Anxiety or Irritability: 1=Feels Anxious/Irritable Goose Flesh Skin: 0=Smooth Skin COWS Score: 2
== END 2020-01-23 09:18 | disposition home or self-care (01) | DRG 773 ==
LOC: YASAS 14:19 → Y3N 17:09
PROVIDERS: ADMIT Allergy & Immunology; ATTEND Allergy & Immunology
PROC: HZ2ZZZZ Detoxification Services for Substance Abuse Treatment (ICD-10-PCS; principal; 2020-01-20)
DX: F10.230 Alcohol dependence with withdrawal, uncomplicated (principal); F11.23 Opioid dependence with withdrawal; F16.20 Hallucinogen dependence, uncomplicated; F17.210 Nicotine dependence, cigarettes, uncomplicated; F19.24 Other psychoactive substance dependence with psychoactive substance-induced mood disorder; I10 Essential (primary) hypertension
CPT/HCPCS: 36415; 80053; 85027; 86780; U0003

== ENCOUNTER 2020-03-05 10:02 | Inpatient (IN) | payer OTHER ==
--- NOTE | 2020-03-05 10:22 | BHS.RME ---
Substance Use & Tx History - Substance Use History Heroin Substance amount: 4-5 bags Frequency of use: Daily Substance route: Inhalation (ex: sniffing or snorting) Date of Last Use: 03/04/20 Nicotine Substance amount: 1 pack Frequency of use: Daily Substance route: Smoking Date of Last Use: 03/05/20 PCP Substance amount: $50-60 Frequency of use: Daily Substance route: Smoking Date of Last Use: 03/04/20 Physical/Psych/Mental Status - Behavior General Behavior: Increased activity (restlessness, agitation) Eye Contact: Normal - Cooperativeness Cooperativeness: Cooperative - Thinking Thought Processes: Tight, Logical, Goal Directed - Physical Health Problems Is patient presently having any pain?: No Does patient presently have any injuries (include location): No Does patient currently have a fever: No Is patient : No COWS - Scale Resting Pulse: 0= [place] 80 or Below Sweatin= Chills/Flushing Restless Observation: 1= Difficult to Sit Still Pupil Size: 1= Pupils >than Normal Bone or Joint Aches: 2= Severe Diffuse Aches Runny Nose/ Eye Tearin= Nasal Congestion GI Upset > 30mins: 2= Nausea/Diarrhea Tremor Observation: 1= Tremor [place], Not Seen Yawning Observation: 1= 1-2x During Session Anxiety or Irritability: 1=Feels Anxious/Irritable Goose Flesh Skin: 3=Piloerection COWS Score: 14
--- NOTE | 2020-03-05 12:23 | HP ---
COWS - Scale Resting Pulse: 0= [place] 80 or Below Sweatin= Chills/Flushing Restless Observation: 1= Difficult to Sit Still Pupil Size: 1= Pupils >than Normal Bone or Joint Aches: 2= Severe Diffuse Aches Runny Nose/ Eye Tearin= Nasal Congestion GI Upset > 30mins: 2= Nausea/Diarrhea Tremor Observation: 1= Tremor Fowler, Not Seen Yawning Observation: 1= 1-2x During Session Anxiety or Irritability: 1=Feels Anxious/Irritable Goose Flesh Skin: 3=Piloerection COWS Score: 14 CIWA Score - Admission Criteria OASAS Guidelines: Admission for Medically Managed Detox: Requires at least one of the followin. CIWA greater than 12 2. Seizures within the past 24 hours 3. Delirium tremens within the past 24 hours 4. Hallucinations within the past 24 hours 5. Acute intervention needed for co occurring medical disorder 6. Acute intervention needed for co occurring psychiatric disorder 7. Severe withdrawal that cannot be handled at a lower level of care (continued vomiting, continued diarrhea, abnormal vital signs) requiring intravenous medication and/or fluids 8. Admitting History and Physical - Admission History of Present Illness: 60 y.o. M PMHx HTN, gout presenting to [facility] for detox. Patient was examined in no acute distress. Patient drug abuse consists of heroin 5 bags a day, 2 overdoses last one 3 years ago and does not carry narcan at home, PCP 50$ a day last use 1 day ago, nicotine 1 pack a day. - Substance Use History Heroin Substance amount: 4-5 bags Frequency of use: Daily Substance route: Inhalation (ex: sniffing or snorting) Date of Last Use: 03/04/20 Nicotine Substance amount: 1 pack Frequency of use: Daily Substance route: Smoking Date of Last Use: 03/05/20 PCP Substance amount: $50-60 Frequency of use: Daily Substance route: Smoking Date of Last Use: 03/04/20 History Source: Patient Limitations to Obtaining History: No Limitations - Past Medical History [employer]: No: Seizure Cardiovascular: Yes: HTN. No: Hyperlipdemia Pulmonary: No: Pneumonia Gastrointestinal: No: GERD, GI Bleed Hepatobiliary: No: Hepatitis A, Hepatitis B, Hepatitis C Infectious Disease: No: HIV Rheumatology: Yes: Gout - Past Surgical History Past Surgical History: Yes: None - Smoking History Smoking history: Current every day smoker Have you smoked in the past 12 months: Yes Aproximately how many cigarettes per day: 20 - Alcohol/Substance Use Hx Alcohol Use: Yes History of Substance Use: reports: Heroin - Social History Usual Living Arrangement: Yes: Alone ADL: Independent History of Recent Travel: No Other Social History: homeless Admission ROS S - HPI Allergies/Adverse Reactions: Allergies Allergy/AdvReac Type Severity Reaction Status Date / Time No Known Allergies Allergy Verified 03/05/20 12:03 History of Present Illness: 60 y.o. M PMHx HTN, gout presenting to [facility] for detox. Patient was examined in no acute distress. Patient drug abuse consists of heroin 5 bags a day, 2 overdoses last one 3 years ago and does not carry narcan at home, PCP 50$ a day last use 1 day ago, nicotine 1 pack a day. - Substance Use History Heroin Substance amount: 4-5 bags Frequency of use: Daily Substance route: Inhalation (ex: sniffing or snorting) Date of Last Use: 03/04/20 Nicotine Substance amount: 1 pack Frequency of use: Daily Substance route: Smoking Date of Last Use: 03/05/20 PCP Substance amount: $50-60 Frequency of use: Daily Substance route: Smoking Date of Last Use: 03/04/20 Exam Limitations: No Limitations - Ebola screening Have you traveled outside of the country in the last 21 days: No Have you had contact with anyone from an Ebola affected area: No Have you been sick,other than usual withdrawal symptoms: No Do you have a fever: No - Review of Systems Constitutional: No Symptoms Reported Respiratory: reports: No Symptoms reported. denies: Cough, Shortness of Breath Cardiac: denies: Chest Pain, Lightheadedness GI: denies: Constipated, Diarrhea, Nausea, Vomiting Musculoskeletal: denies: Muscle Pain, Muscle Weakness Neuro: denies: Headache, Dizziness Hematology: denies: Easy Bleeding Psychiatric: reports: No Sypmtoms Reported, Judgement Intact, Mood/Affect Appropiate, Orientated x3 Patient History - Patient Medical History Hx Anemia: No Hx Asthma: No Hx Chronic Obstructive Pulmonary Disease (COPD): No Hx Cancer: No Hx Cardiac Disorders: No Hx Congestive Heart Failure: No Hx Hypertension: Yes Hx Hypercholesterolemia: No Hx Pacemaker: No HX Cerebrovascular Accident: No Hx Seizures: No Hx Dementia: No Hx Diabetes: No Hx Gastrointestinal Disorders: No Hx Liver Disease: No Hx Genitourinary Disorders: No Hx Sexually Transmitted Disorders: No Hx Renal Disease (ESRD): No Hx Thyroid Disease: No Hx Human Immunodeficiency Virus (HIV): No (NEGATIVE HX last 2016 ) Hx Hepatitis C: No Hx Depression: No Hx Suicide Attempt: No Hx Bipolar Disorder: No Hx Schizophrenia: No - Patient Surgical History Past Surgical History: No Hx Neurologic Surgery: No Hx Cataract Extraction: No Hx Cardiac Surgery: No Hx Lung Surgery: No Hx Breast Surgery: No Hx Breast Biopsy: No Hx Abdominal Surgery: No Hx Appendectomy: No Hx Cholecystectomy: No Hx Genitourinary Surgery: No Hx Section: No Hx Orthopedic Surgery: No Anesthesia Reaction: No - PPD History Previous Implant?: Yes Documented Results: Negative w/proof Implanted On Prior [facility] Admission?: Yes Date: 12/03/18 Results: not read - Smoking Cessation Smoking history: Current every day smoker Have you smoked in the past 12 months: Yes Aproximately how many cigarettes per day: 20 Cigars Per Day: 0 Hx Chewing Tobacco Use: No Initiated information on smoking cessation: Yes 'Breaking Loose' booklet given: 03/05/20 - Substances abused Heroin Substance route: Inhalation Frequency: Daily Amount used: 5-6 bags Age of first use: 19 Date of last use: 03/04/20 PCP Substance route: Smoking Frequency: Daily Amount used: 4-5 bags Age of first use: 19 Date of last use: 03/04/20 Admission Physical Exam BHS - Vital Signs Vital Signs: Vital Signs - 24 hr 03/05/20 12:03 Temperature 97.3 F L Pulse Rate 77 Respiratory 20 Rate Blood Pressure 152/85 - Physical General Appearance: Yes: Within Normal Limits, No Apparent Distress, Nourished, Appropriately Dressed Respiratory: Yes: Within Normal Limits, Chest Non-Tender, Lungs Clear, Normal Breath Sounds, No Accessory Muscle Use Cardiology: Yes: Within Normal Limits, Regular Rhythm, Regular Rate Abdominal: Yes: Within Normal Limits, Normal Bowel Sounds, Non Tender, Flat Back: Yes: Within Normal Limits, Normal Inspection Musculoskeletal: Yes: Within Normal Limits, full range of Motion. No: Muscle Pain, Muscle weakness Extremities: Yes: Within Normal Limits, Normal Inspection, Non-Tender Neurological: Yes: Within Normal Limits, Fully Oriented, Alert, Normal Mood/Affect, Normal Response Integumentary: Yes: Within Normal Limits, Normal Color, Warm - Diagnostic (1) Alcohol use disorder Current Visit: No Status: Acute (2) Opioid use disorder Current Visit: No Status: Acute (3) Alcohol dependence with uncomplicated withdrawal Current Visit: No Status: Chronic (4) Depression Current Visit: No Status: Chronic Qualifiers: Depression Type: unspecified Qualified Code(s): F32.9 - Major depressive disorder, single episode, unspecified (5) Gouty arthropathy Current Visit: No Status: Chronic Comment: not medicated for a year as per hx. (6) Hypertension Current Visit: No Status: Chronic Qualifiers: Hypertension type: essential hypertension Qualified Code(s): I10 - Essential (primary) hypertension (7) Nicotine dependence Current Visit: No Status: Chronic Qualifiers: Nicotine product type: cigarettes Substance use status: uncomplicated Qualified Code(s): F17.210 - Nicotine dependence, cigarettes, uncomplicated (8) PCP (phencyclidine) abuse Current Visit: No Status: Chronic (9) Substance induced mood disorder Current Visit: No Status: Suspected Cleared for Admission S - Detox or Rehab [facility] Level of Care: Medically Managed Detox Regimen/Protocol: Methadone Breathalyzer - Breathalyzer Breathalyzer: 0 Vital Signs - Vital Signs Vital signs refused: No Temperature: 97.3 F Pulse Rate: 77 Respiratory Rate: 14 Blood Pressure: 152/85 - Height Height: 1.73 m - Weight Weight: 77.111 kg - BMI Body Mass Index (BMI): 25.8 Urine Drug Screen - Test Device Lot number: [id number] Expiration date: 10/01/21 - Control Is test valid?: Yes - Results Drug screen NEGATIVE: No Urine drug screen results: MOP-Opiates Inpatient Rehab Admission - Rehab Decision to Admit Inpatient rehab admission?: No
[2020-03-05 12:33] VITALS: BMI 25.8
[2020-03-05] MEDS ORDERED: IBUPROFEN 400 MG TABLET (FP) PO PRN (12:34)
[2020-03-05] MEDS ORDERED: ONDANSETRON *ODT* 4 MG TABLET SL PRN (12:34)
[2020-03-05] MEDS ORDERED: NICOTINE POLACRILEX 2 MG GUM BUC PRN (12:34)
[2020-03-05] MEDS ORDERED: cloNIDine HCL 0.1 MG TABLET PO PRN (12:34)
[2020-03-05] MEDS ORDERED: ACETAMINOPHEN 325 MG TABLET (FP) PO PRN ×2 (12:34)
[2020-03-05] MEDS ORDERED: MENTHOL/PHENOL 1 EACH UD MM PRN (12:34)
[2020-03-05] MEDS ORDERED: BISMUTH SUBSALICYLATE 524 MG/30 ML UD PO PRN (12:34)
[2020-03-05] MEDS ORDERED: MAGNESIUM HYDROX 2400MG/30ML ORAL SUSPENSION 30 ML CUP PO PRN (12:34)
[2020-03-05] MEDS ORDERED: MAG HYDROX/AL HYDROX/SIMETH 30 ML UNIT-DOSE CUP PO PRN (12:34)
[2020-03-05] MEDS ORDERED: MAGNESIUM CITRATE 300 ML BOTTLE PO PRN (12:34)
[2020-03-05] MEDS ORDERED: METHOCARBAMOL 500 MG TABLET PO PRN (12:34)
[2020-03-05] MEDS ORDERED: METHADONE HCL 10 MG TABLET (FOR DETOX USE ONLY) PO ONE (13:15)
[2020-03-05] MEDS ORDERED: hydrOXYzine PAMOATE 25 MG CAPSULE (FP) PO SCH (14:00)
[2020-03-05] MEDS ORDERED: hydrOXYzine PAMOATE 25 MG CAPSULE (FP) PO PRN (15:10)
--- NOTE | 2020-03-05 15:47 | PN ---
Teaching Attending Note Name of Resident: To [place]xton ATTENDING PHYSICIAN STATEMENT I saw and evaluated the patient. I reviewed the resident's note and discussed the case with the resident. I agree with the resident's findings and plan as documented. SUBJECTIVE: OBJECTIVE: ASSESSMENT AND PLAN: 60 y.o. M PMHx HTN, gout presenting to [facility] for detox. Patient was examined in no acute distress. Patient drug abuse consists of heroin 5 bags a day, 2 overdoses last one 3 years ago and does not carry narcan at home, PCP 50$ a day last use 1 day ago, nicotine 1 pack a day. - Substance Use History Heroin Substance amount: 4-5 bags Frequency of use: Daily Substance route: Inhalation (ex: sniffing or snorting) Date of Last Use: 03/04/20 Nicotine Substance amount: 1 pack Frequency of use: Daily Substance route: Smoking Date of Last Use: 03/05/20 PCP Substance amount: $50-60 Frequency of use: Daily Substance route: Smoking Date of Last Use: 03/04/20 Imp 1. Opioid withdrawal Plan 1. Methadone detox protocol
[2020-03-05 17:33] LABS: HEMATOCRIT 44.8 % (35.4-49); HEMOGLOBIN 14.3 GM/dL (11.7-16.9); MCH 27.4 pg (25.7-33.7); MCHC 31.9 g/dl (32.0-35.9); MEAN CELL VOLUME 85.9 fl (80-96); MEAN PLT VOLUME 7.8 fl (7.5-11.1); PLATELET COUNT 265 K/MM3 (134-434); RBC 5.21 M/mm3 (4.00-5.60); RDW 14.4 % (11.9-15.9); WHITE BLOOD COUNT 9.4 K/mm3 (4.0-10.0)
[2020-03-05 17:40] LABS: ALBUMIN 3.5 g/dl (3.4-5.0); BILIRUBIN,TOTAL 0.3 mg/dL (0.2-1); BLOOD UREA NITROGEN 17.3 mg/dL (7-18); CALCIUM 9.2 mg/dL (8.5-10.1); CREATININE 1.3 mg/dL (0.55-1.3); POTASSIUM 4.3 mmol/L (3.5-5.1); TOT PROT 7.2 g/dl (6.4-8.2)
[2020-03-05] MEDS: MELATONIN 5 MG TABLETS PO SCH (21:13)
[2020-03-05] MEDS: THIAMINE HCL 100 MG TABLET (FP) PO SCH (21:13)
[2020-03-06] MEDS ORDERED: METHADONE HCL 10 MG TABLET (FOR DETOX USE ONLY) ONE (09:33)
[2020-03-06] MEDS ORDERED: METHADONE HCL 5 MG TABLET (FOR DETOX USE ONLY) ONE (09:33)
--- NOTE | 2020-03-06 09:55 | PN ---
BHS COWS - Scale Resting Pulse: 0= [place] 80 or Below Sweatin= Chills/Flushing Restless Observation: 1= Difficult to Sit Still Pupil Size: 0= Normal to Room Light Bone or Joint Aches: 2= Severe Diffuse Aches Runny Nose/ Eye Tearin= Nasal Congestion GI Upset > 30mins: 0= None Tremor Observation of Outstretched Hands: 1= Tremor Pinckard, Not Seen Yawning Observation: 2= >3x During Session Anxiety or Irritability: 2=Irritable/Anxious Goose Flesh Skin: 0=Smooth Skin COWS Score: 10 BHS Progress Note (SOAP) Subjective: irritable sweats shakes interrupted sleep agitation Objective: 03/06/20 09:54 Vital Signs Temperature 97.8 F 03/06/20 05:24 Pulse Rate 53 L 03/06/20 05:24 Respiratory Rate 16 03/06/20 05:24 Blood Pressure 145/77 03/06/20 05:24 O2 Sat by Pulse Oximetry (%) 95 03/06/20 05:24 Laboratory Tests 03/05/20 03/05/20 03/05/20 11:30 11:30 11:30 WBC 9.4 RBC 5.21 Hgb 14.3 Hct 44.8 MCV 85.9 MCH 27.4 MCHC 31.9 L RDW 14.4 Plt Count 265 D MPV 7.8 Sodium 143 Potassium 4.3 Chloride 110 H Carbon Dioxide 30 Anion Gap 3 L BUN 17.3 Creatinine 1.3 Est GFR (CKD-EPI)AfAm 69.71 Est GFR (CKD-EPI)NonAf 60.14 Random Glucose 85 Calcium 9.2 Total Bilirubin 0.3 AST 20 ALT 27 Alkaline Phosphatase 88 Total Protein 7.2 Albumin 3.5 Syphilis Serology Non-reactive labs noted aaox3 lying in bed no acute distress Assessment: 03/06/20 09:54 withdrawals Plan: continue detox increase fluids pending labs
[2020-03-06] MEDS ORDERED: METHADONE (DETOX) 20 MG, METHADONE (DETOX) 5 MG PO ONE (10:00)
--- NOTE | 2020-03-06 12:47 | CONSULT ---
[facility] Psychiatric Consult - Data Date of interview: 03/06/20 Admission source: [facility] Identifying data: Boarding House Cook approached patient twice for a psychiatric consultation. On both occasions patient stated, " I don't want to talk now." Psychiatric consultation refused.
[2020-03-06] MEDS: PRENATAL VITAMINS W/ FOLIC ACID TABLET (FP) PO SCH (14:28)
[2020-03-06] MEDS: NICOTINE 7 MG/24 HOURS TOPICAL PATCH TD SCH (14:28)
[2020-03-06] MEDS: THIAMINE HCL 100 MG TABLET (FP) PO SCH (22:52)
[2020-03-06] MEDS: MELATONIN 5 MG TABLETS PO SCH (22:52)
[2020-03-07] MEDS ORDERED: METHADONE HCL 10 MG TABLET (FOR DETOX USE ONLY) PO ONE (10:00)
[2020-03-07] MEDS: NICOTINE 7 MG/24 HOURS TOPICAL PATCH TD SCH (12:16)
[2020-03-07] MEDS: PRENATAL VITAMINS W/ FOLIC ACID TABLET (FP) PO SCH (12:16)
--- NOTE | 2020-03-07 17:31 | PN ---
BHS COWS - Scale Resting Pulse: 0= [place] 80 or Below Sweatin= Chills/Flushing Restless Observation: 1= Difficult to Sit Still Pupil Size: 0= Normal to Room Light Bone or Joint Aches: 1= Mild Discomfort Runny Nose/ Eye Tearin= None GI Upset > 30mins: 0= None Tremor Observation of Outstretched Hands: 2= Slight Tremor Visible Yawning Observation: 1= 1-2x During Session Anxiety or Irritability: 2=Irritable/Anxious Goose Flesh Skin: 0=Smooth Skin COWS Score: 8 BHS Progress Note (SOAP) Subjective: Tremors, Sweating, Anxious, Fatigue, Body Aches. Objective: Patient A & O X 3, Observed Ambulating on Detox Unit Unassisted. In No Acute Distress. 03/07/20 17:32 Vital Signs Temperature 97.5 F L 03/07/20 12:25 Pulse Rate 63 03/07/20 12:25 Respiratory Rate 19 03/07/20 12:25 Blood Pressure 138/66 03/07/20 12:25 O2 Sat by Pulse Oximetry (%) 100 03/07/20 12:25 Laboratory Tests 03/05/20 03/05/20 03/05/20 11:30 11:30 11:30 WBC 9.4 RBC 5.21 Hgb 14.3 Hct 44.8 MCV 85.9 MCH 27.4 MCHC 31.9 L RDW 14.4 Plt Count 265 D MPV 7.8 Sodium 143 Potassium 4.3 Chloride 110 H Carbon Dioxide 30 Anion Gap 3 L BUN 17.3 Creatinine 1.3 Est GFR (CKD-EPI)AfAm 69.71 Est GFR (CKD-EPI)NonAf 60.14 Random Glucose 85 Calcium 9.2 Total Bilirubin 0.3 AST 20 ALT 27 Alkaline Phosphatase 88 Total Protein 7.2 Albumin 3.5 Syphilis Serology Non-reactive COVID-19 ([facility]) 03/05/20 14:00 WBC RBC Hgb Hct MCV MCH MCHC RDW Plt Count MPV Sodium Potassium Chloride Carbon Dioxide Anion Gap BUN Creatinine Est GFR (CKD-EPI)AfAm Est GFR (CKD-EPI)NonAf Random Glucose Calcium Total Bilirubin AST ALT Alkaline Phosphatase Total Protein Albumin Syphilis Serology COVID-19 ([facility]) Not detected Lab Results noted. Assessment: 03/07/20 17:33 WITHDRAWAL SYMPTOMS. Plan: Continue Detox. Increase Daily Oral Water Intake.
[2020-03-07] MEDS: MELATONIN 5 MG TABLETS PO SCH (23:01)
[2020-03-07] MEDS: THIAMINE HCL 100 MG TABLET (FP) PO SCH (23:02)
[2020-03-08] MEDS ORDERED: METHADONE HCL 5 MG TABLET (FOR DETOX USE ONLY) ONE (09:20)
[2020-03-08] MEDS ORDERED: METHADONE HCL 10 MG TABLET (FOR DETOX USE ONLY) ONE (09:20)
[2020-03-08] MEDS ORDERED: METHADONE (DETOX) 10 MG, METHADONE (DETOX) 5 MG PO ONE (10:00)
[2020-03-08] MEDS: PRENATAL VITAMINS W/ FOLIC ACID TABLET (FP) PO SCH (10:48)
[2020-03-08] MEDS: NICOTINE 7 MG/24 HOURS TOPICAL PATCH TD SCH (10:50)
--- NOTE | 2020-03-08 18:11 | PN ---
BHS COWS - Scale Resting Pulse: 0= [place] 80 or Below Sweatin= Chills/Flushing Restless Observation: 0= Sits Still Pupil Size: 0= Normal to Room Light Bone or Joint Aches: 1= Mild Discomfort Runny Nose/ Eye Tearin= Runny Nose/Eyes GI Upset > 30mins: 1= Stomach Cramp Tremor Observation of Outstretched Hands: 0= None Yawning Observation: 0= None Anxiety or Irritability: 1=Feels Anxious/Irritable Goose Flesh Skin: 0=Smooth Skin COWS Score: 6 BHS Progress Note (SOAP) Subjective: Feels ok Objective: 03/08/20 18:08 Last Vital Signs Temp Pulse Resp BP Pulse Ox 98.1 F 67 18 134/79 97 03/08/20 13:12 03/08/20 13:12 03/08/20 13:12 03/08/20 13:12 03/08/20 05:47 Elevated b/p: denies htn Laboratory Tests 03/05/20 03/05/20 03/05/20 11:30 11:30 11:30 WBC 9.4 RBC 5.21 Hgb 14.3 Hct 44.8 MCV 85.9 MCH 27.4 MCHC 31.9 L RDW 14.4 Plt Count 265 D MPV 7.8 Sodium 143 Potassium 4.3 Chloride 110 H Carbon Dioxide 30 Anion Gap 3 L BUN 17.3 Creatinine 1.3 Est GFR (CKD-EPI)AfAm 69.71 Est GFR (CKD-EPI)NonAf 60.14 Random Glucose 85 Calcium 9.2 Total Bilirubin 0.3 AST 20 ALT 27 Alkaline Phosphatase 88 Total Protein 7.2 Albumin 3.5 Syphilis Serology Non-reactive COVID-19 ([facility]) 03/05/20 14:00 WBC RBC Hgb Hct MCV MCH MCHC RDW Plt Count MPV Sodium Potassium Chloride Carbon Dioxide Anion Gap BUN Creatinine Est GFR (CKD-EPI)AfAm Est GFR (CKD-EPI)NonAf Random Glucose Calcium Total Bilirubin AST ALT Alkaline Phosphatase Total Protein Albumin Syphilis Serology COVID-19 ([facility]) Not detected Labs reviewed Assessment: 03/08/20 18:09 Withdrawal sxs Elevated b/p noted Plan: Continue detox Encourage PO water intake Elevated b/p: denies htn, monitor b/p
[2020-03-08] MEDS: MELATONIN 5 MG TABLETS PO SCH (23:33)
[2020-03-08] MEDS: THIAMINE HCL 100 MG TABLET (FP) PO SCH (23:33)
[2020-03-09] MEDS ORDERED: METHADONE HCL 10 MG TABLET (FOR DETOX USE ONLY) PO ONE (10:00)
--- NOTE | 2020-03-09 10:27 | PN ---
BHS COWS - Scale Resting Pulse: 0= [place] 80 or Below Sweatin= Chills/Flushing Restless Observation: 1= Difficult to Sit Still Pupil Size: 0= Normal to Room Light Bone or Joint Aches: 0= None Runny Nose/ Eye Tearin= None GI Upset > 30mins: 0= None Tremor Observation of Outstretched Hands: 0= None Yawning Observation: 0= None Anxiety or Irritability: 1=Feels Anxious/Irritable Goose Flesh Skin: 0=Smooth Skin COWS Score: 3 BHS Progress Note (SOAP) Subjective: feeling fine little anxiety Objective: 03/09/20 10:26 Vital Signs Temperature 99.5 F 03/09/20 05:25 Pulse Rate 53 L 03/09/20 05:25 Respiratory Rate 20 03/09/20 05:25 Blood Pressure 122/77 03/09/20 05:25 O2 Sat by Pulse Oximetry (%) 99 03/09/20 05:25 aaox3 ambulating no acute distress Assessment: 03/09/20 10:26 mild withdrawals Plan: continue detox d/c in am
[2020-03-09] MEDS: NICOTINE 7 MG/24 HOURS TOPICAL PATCH TD SCH (12:11)
[2020-03-09] MEDS: PRENATAL VITAMINS W/ FOLIC ACID TABLET (FP) PO SCH (12:11)
[2020-03-09] MEDS: MELATONIN 5 MG TABLETS PO SCH (22:38)
[2020-03-09] MEDS: THIAMINE HCL 100 MG TABLET (FP) PO SCH (22:39)
[2020-03-10] MEDS ORDERED: METHADONE HCL 5 MG TABLET (FOR DETOX USE ONLY) PO ONE (06:00)
[2020-03-10 06:15] VITALS: BP 150/77
--- NOTE | 2020-03-10 08:40 | DS ---
[facility] Detox Discharge Summary Admission Date: 03/05/20 Discharge Date: 03/10/20 - History Present History: Alcohol Dependence, Opioid Dependence, Pcp Dependence - Physical Exam Results Vital Signs: Vital Signs Temperature 98 F 03/10/20 06:14 Pulse Rate 56 L 03/10/20 06:14 Respiratory Rate 18 03/10/20 06:14 Blood Pressure 150/77 03/10/20 06:14 O2 Sat by Pulse Oximetry (%) 99 03/10/20 06:14 Pertinent Admission Physical Exam Findings: Vital Signs Temperature 98 F 03/10/20 06:14 Pulse Rate 56 L 03/10/20 06:14 Respiratory Rate 18 03/10/20 06:14 Blood Pressure 150/77 03/10/20 06:14 O2 Sat by Pulse Oximetry (%) 99 03/10/20 06:14 Laboratory Tests 03/05/20 03/05/20 03/05/20 11:30 11:30 11:30 WBC 9.4 RBC 5.21 Hgb 14.3 Hct 44.8 MCV 85.9 MCH 27.4 MCHC 31.9 L RDW 14.4 Plt Count 265 D MPV 7.8 Sodium 143 Potassium 4.3 Chloride 110 H Carbon Dioxide 30 Anion Gap 3 L BUN 17.3 Creatinine 1.3 Est GFR (CKD-EPI)AfAm 69.71 Est GFR (CKD-EPI)NonAf 60.14 Random Glucose 85 Calcium 9.2 Total Bilirubin 0.3 AST 20 ALT 27 Alkaline Phosphatase 88 Total Protein 7.2 Albumin 3.5 Syphilis Serology Non-reactive COVID-19 ([facility]) 03/05/20 14:00 WBC RBC Hgb Hct MCV MCH MCHC RDW Plt Count MPV Sodium Potassium Chloride Carbon Dioxide Anion Gap BUN Creatinine Est GFR (CKD-EPI)AfAm Est GFR (CKD-EPI)NonAf Random Glucose Calcium Total Bilirubin AST ALT Alkaline Phosphatase Total Protein Albumin Syphilis Serology COVID-19 ([facility]) Not detected labs noted aaox3 ambulating no acute distress lungs CTA - Treatment Hospital Course: Detox Protocol Followed, Detoxed Safely, Responded well, Discharged Condition Good, Rehab Referral Accepted - Medication Discharge Medications: Ambulatory Orders Naloxone HCl [Narcan] 4 mg NS ASDIR PRN #1 spray 01/22/20 - Diagnosis (1) Alcohol use disorder Current Visit: No Status: Acute (2) Bipolar disorder Current Visit: No Status: Acute (3) Opioid use disorder Current Visit: No Status: Acute (4) Substance induced mood disorder Current Visit: No Status: Acute (5) Substance-induced sleep disorder Current Visit: No Status: Acute (6) Alcohol dependence with uncomplicated withdrawal Current Visit: Yes Status: Chronic (7) Depression Current Visit: No Status: Chronic Qualifiers: Depression Type: unspecified Qualified Code(s): F32.9 - Major depressive disorder, single episode, unspecified (8) Excoriation (skin-picking) disorder Current Visit: No Status: Chronic (9) Gouty arthropathy Current Visit: No Status: Chronic (10) Hypertension Current Visit: No Status: Chronic Qualifiers: Hypertension type: essential hypertension Qualified Code(s): I10 - Essential (primary) hypertension (11) Mood disorder Current Visit: No Status: Chronic (12) Nicotine dependence Current Visit: Yes Status: Chronic Qualifiers: Nicotine product type: cigarettes Substance use status: uncomplicated Qualified Code(s): F17.210 - Nicotine dependence, cigarettes, uncomplicated (13) Opioid dependence, uncomplicated Current Visit: Yes Status: Chronic (14) PCP (phencyclidine) abuse Current Visit: Yes Status: Chronic (15) Substance induced mood disorder Current Visit: No Status: Suspected (16) Substance induced mood disorder Current Visit: No Status: Suspected - AMA Did Patient Leave Against Medical Advice: No
[2020-03-10 09:48] VITALS: PULSE 70; TEMP 98
[2020-03-10] MEDS: PRENATAL VITAMINS W/ FOLIC ACID TABLET (FP) PO SCH (10:16)
[2020-03-10] MEDS: NICOTINE 7 MG/24 HOURS TOPICAL PATCH TD SCH (10:16)
== END 2020-03-10 12:06 | disposition other institution (70) | DRG 773 ==
LOC: YASAS 10:02 → Y6N 12:00
PROVIDERS: ADMIT Allergy & Immunology; ATTEND Allergy & Immunology
PROC: HZ2ZZZZ Detoxification Services for Substance Abuse Treatment (ICD-10-PCS; principal; 2020-03-05)
DX: F10.230 Alcohol dependence with withdrawal, uncomplicated (principal); F11.20 Opioid dependence, uncomplicated; F16.20 Hallucinogen dependence, uncomplicated; F17.210 Nicotine dependence, cigarettes, uncomplicated; F19.24 Other psychoactive substance dependence with psychoactive substance-induced mood disorder; F19.282 Other psychoactive substance dependence with psychoactive substance-induced sleep disorder; F31.9 Bipolar disorder, unspecified; F39 Unspecified mood [affective] disorder; F42.4 Excoriation (skin-picking) disorder; M1A.9XX0 Chronic gout, unspecified, without tophus (tophi); I10 Essential (primary) hypertension
CPT/HCPCS: 36415; 80053; 85027; 86780; J0735; U0003

== ENCOUNTER 2020-03-10 11:54 | Inpatient (IN) | payer OTHER ==
[2020-03-10] MEDS ORDERED: P-EPHED 60MG/TRIPROLIDI 2.5MG TABLET PO PRN (14:23)
[2020-03-10] MEDS ORDERED: IBUPROFEN 400 MG TABLET (FP) PO PRN (14:23)
[2020-03-10] MEDS ORDERED: ACETAMINOPHEN 325 MG TABLET (FP) PO PRN (14:23)
[2020-03-10] MEDS ORDERED: MAGNESIUM CITRATE 300 ML BOTTLE PO PRN (14:23)
[2020-03-10] MEDS ORDERED: NICOTINE POLACRILEX 2 MG GUM BUC PRN (14:23)
[2020-03-10] MEDS ORDERED: hydrOXYzine PAMOATE 25 MG CAPSULE (FP) PO PRN (14:23)
[2020-03-10] MEDS ORDERED: guaiFENesin 200 MG/10 ML 10 ML UNIT-DOSE CUPS PO PRN (14:23)
[2020-03-10] MEDS ORDERED: LOPERAMIDE HCL 2 MG CAPSULE PO PRN (14:23)
[2020-03-10] MEDS ORDERED: MENTHOL/PHENOL 1 EACH UD MM PRN (14:23)
[2020-03-10] MEDS ORDERED: MAGNESIUM HYDROX 2400MG/30ML ORAL SUSPENSION 30 ML CUP PO PRN (14:23)
[2020-03-10] MEDS ORDERED: MAG HYDROX/AL HYDROX/SIMETH 30 ML UNIT-DOSE CUP PO PRN (14:23)
--- NOTE | 2020-03-10 14:23 | HP ---
[facility] Rehab Assess/Revision - Admission History Admitted to Rehab from: Y [address] [place] [address] - Vital signs Vital Signs: Vital Signs Period Temp Pulse Resp BP Sys/Dey Pulse Ox Last 24 Hr 97.5 F 58 18 129/98 98 - Findings Detox History & Physical reviewed: Yes Concur with findings: Yes Inpatient Rehab Admission - Rehab Decision to Admit Inpatient rehab admission?: Yes - Initial Determination Are CD services needed?: Yes Free of communicable disease: Yes Not in need of hospitalization: Yes - Rehab Admission Criteria Previous failed treatment: Yes Poor recovery environment: Yes Comorbidities: Yes Lacks judgement: Yes Patient is meeting Inpatient Rehab admission criteria:: Yes
[2020-03-10] MEDS: THIAMINE HCL 100 MG TABLET (FP) PO SCH (21:50)
[2020-03-10] MEDS: MELATONIN 5 MG TABLETS PO SCH (21:50)
[2020-03-11] MEDS: NICOTINE 21 MG/24 HOURS TOPICAL PATCH TD SCH (10:21)
[2020-03-11] MEDS: PRENATAL VITAMINS W/ FOLIC ACID TABLET (FP) PO SCH (10:22)
[2020-03-11] MEDS: THIAMINE HCL 100 MG TABLET (FP) PO SCH (21:58)
[2020-03-11] MEDS: MELATONIN 5 MG TABLETS PO SCH (21:58)
[2020-03-12 07:07] VITALS: BP 150/82; PULSE 65; TEMP 98.4
--- NOTE | 2020-03-12 10:33 | DS ---
[facility] Rehab Discharge Summary - [facility] Rehab Discharge Summary Admission Date: 03/10/20 Discharge Date: 03/12/20 - History Present History: Alcohol dependence, Opioid dependence Pertinent Past History: 60 y.o. M PMHx HTN, actively using heroin 5 bags a day, 2 overdoses last one 3 years ago and does not carry narcan at home, PCP 50$ a day last use 1 day. - Discharge Physical Exam Vital Signs: Vital Signs Temperature 98.4 F 03/12/20 06:16 Pulse Rate 65 03/12/20 06:16 Respiratory Rate 18 03/12/20 06:16 Blood Pressure 150/82 03/12/20 06:16 O2 Sat by Pulse Oximetry (%) 96 03/12/20 06:16 Pertinent Admission Physical Exam Findings: Physical General Appearance: No Apparent Distress, HEENTM: Normocephalic, EOMI, PERRLA Respiratory: No Accessory Muscle Use Abdominal:+Bowel Sounds, Non Tender, Flat Musculoskeletal:full range of Motion, steady gait, full weight bearing Neurological: No cognitive deficits noted. - Treatment Discharge Condition: Discharge condition good (medically stable for discharge), Outpatient referral accepted (Patient returning to [facility]) Hospital Course: Patient attended groups, had 1:1 with his counselor. He had no acute or urgent medical problems while in rehab. - Medication Discharge Medications: Ambulatory Orders Naloxone HCl [Narcan] 4 mg NS ASDIR PRN #1 spray 01/22/20 - Medication-Assisted Treatment (MAT) Medication-Assisted Treatment (MAT): No - Discharge Instructions Diet, activity, other medical instructions: Diet: as tolerated Activity: as tolerated Other medical instructions: Please follow up with aftercare referral. - Diagnosis (1) Opioid use disorder Current Visit: No Status: Acute (2) Alcohol dependence with uncomplicated withdrawal Current Visit: No Status: Chronic - Follow-up Referral Minutes to complete discharge: 15 - AMA Did Patient Leave Against Medical Advice: No
[2020-03-12] MEDS: NICOTINE 21 MG/24 HOURS TOPICAL PATCH TD SCH (10:42)
[2020-03-12] MEDS: PRENATAL VITAMINS W/ FOLIC ACID TABLET (FP) PO SCH (10:42)
== END 2020-03-12 10:35 | disposition home or self-care (01) | DRG 772 ==
LOC: YASAS 11:54 → Y3W 11:55
PROVIDERS: ADMIT Allergy & Immunology; ATTEND Allergy & Immunology
PROC: HZ42ZZZ Group Counseling for Substance Abuse Treatment, Cognitive-Behavioral (ICD-10-PCS; principal; 2020-03-10)
DX: F11.20 Opioid dependence, uncomplicated (principal); F10.20 Alcohol dependence, uncomplicated; F16.20 Hallucinogen dependence, uncomplicated; F19.24 Other psychoactive substance dependence with psychoactive substance-induced mood disorder; F32.9 Major depressive disorder, single episode, unspecified; I10 Essential (primary) hypertension; M10.9 Gout, unspecified

== ENCOUNTER 2020-03-17 13:53 | Inpatient (IN) | payer OTHER ==
--- NOTE | 2020-03-17 14:49 | BHS.RME ---
Substance Use & Tx History - Substance Use History Alcohol Substance amount: 4 beers Frequency of use: Daily Substance route: Oral Date of Last Use: 03/15/20 PCP Substance amount: 4-5 blunts Frequency of use: Daily Substance route: Smoking Date of Last Use: 03/15/20 Nicotine Substance amount: 10 ciggs Frequency of use: Daily Substance route: Smoking Date of Last Use: 03/17/20 Physical/Psych/Mental Status - Behavior General Behavior: Increased activity (restlessness, agitation) Eye Contact: Normal - Cooperativeness Cooperativeness: Cooperative - Thinking Thought Processes: Tight, Logical, Goal Directed - Physical Health Problems Is patient presently having any pain?: No Does patient presently have any injuries (include location): No Does patient currently have a fever: No Is patient : No CIWA Nausea/Vomitin-No Nausea/No Vomiting Muscle Tremors: None Anxiety: 0-No Anxiety, at Ease Agitation: 0-Normal Activity Paroxysmal Sweats: No Perspiration Orientation: 0-Oriented Tacttile Disturbances: 0-None Auditory Disturbances: 0-None Visual Disturbances: 0-None Headache: 0-None Present CIWA-Ar Total Score: 0
--- OUTSIDE RECORDS SUMMARY | 2020-03-17 15:39 | XMS ---
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 Center </content>5.87 KCUMM<content styleCode="Ital ics"> (4.4-11.0 KCUMM)</content > Erythrocyte mean 80.0-100 <content [facility] corpuscular .0 styleCode="Bold Vikash volume [Entitic ">Mean Medical volume] by Corpuscular Center Automated count Volume </content>84.4 FL<content styleCode="Ital ics"> (80.0-100.0 FL)</content> Erythrocyte mean 32.0-37. Below low normal <content [facility] corpuscular 0 styleCode="Bold Vikash hemoglobin ">Mean Corpus. Medical concentration Hgb Center [Mass/volume] by Concentration Automated count (MCHC) </content>30.3 G/DL L<content styleCode="Ital ics"> (32.0-37.0 G/DL)</content> Erythrocyte mean 26.0-34. Below low normal <content [facility] corpuscular 0 styleCode="Bold Vikash hemoglobin ">Mean Medical [Entitic mass] Corposcular Center by Automated Hemoglobin count </content>25.6 PG L<content styleCode="Ital ics"> (26.0-34.0 PG)</content> Hematocrit 41.0-53. <content [facility] [Volume 0 styleCode="Bold Vikash Fraction] of ">Hematocrit Medical Blood by </content>42.9 Center Automated count %<content styleCode="Ital ics"> (41.0-53.0 %)</content> Erythrocyte 11.5-14. Above high <content [facility] distribution 5 normal styleCode="Bold Vikash width [Ratio] by ">Red Cell Medical Automated count Distribution Center Width </content>15.1 % H<content styleCode="Ital ics"> (11.5-14.5 %)</content> Neutrophils 36-66 <content [facility] [#/volume] in styleCode="Bold Vikash Blood by ">Neutrophil Medical Automated count </content>41.0 Center %<content styleCode="Ital ics"> (36-66 %)</content> Platelets 130-400 <content [facility] [#/volume] in styleCode="Bold Vikash Blood by ">Platelet Medical Automated count Count Center </content>168 KCUMM<content styleCode="Ital ics"> (130-400 KCUMM)</content > Platelet mean 8.0-11.0 <content [facility] volume [Entitic styleCode="Bold Vikash volume] in Blood ">Mean Platelet Medical by Automated Volume Center count </content>9.5 FL<content styleCode="Ital ics"> (8.0-11.0 FL)</content> Monocytes 3.0-10.0 Above high <content [facility] [#/volume] in normal styleCode="Bold Vikash Blood by ">Monocyte Medical Automated count </content>11.4 Center % H<content styleCode="Ital ics"> (3.0-10.0 %)</content> UNK 1.6-7.3 <content [facility] styleCode="Bold Vikash ">Neutrophil Medical Count Center </content>2.41 KCUMM<content styleCode="Ital ics"> (1.6-7.3 KCUMM)</content > UNK 1.0-4.8 <content [facility] styleCode="Bold Vikash ">Lymphocyte Medical Count Center </content>2.67 KCUMM<content styleCode="Ital ics"> (1.0-4.8 KCUMM)</content > Lymphocytes 24.0-44. Above high <content [facility] [#/volume] in 0 normal styleCode="Bold Vikash Blood by ">Lymphocyte Medical Automated count </content>45.5 Center % H<content styleCode="Ital ics"> (24.0-44.0 %)</content> UNK 0.2-0.9 <content [facility] styleCode="Bold Vikash ">Monocyte Medical Count Center </content>0.67 KCUMM<content styleCode="Ital ics"> (0.2-0.9 KCUMM)</content > Eosinophils 0-5.0 <content [facility] [#/volume] in styleCode="Bold Vikash Blood by ">Eosinophil Medical Automated count </content>1.2 Center %<content styleCode="Ital ics"> (0-5.0 %)</content> UNK 0.0-0.6 <content [facility] styleCode="Bold Vikash ">Eosinophil Medical Count Center </content>0.07 KCUMM<content styleCode="Ital ics"> (0.0-0.6 KCUMM)</content > UNK 0.0 <content [facility] styleCode="Bold Vikash ">Nucleated Red Medical Blood Cell Center Count </content>0.00 KCUMM<content styleCode="Ital ics"> (0.0 KCUMM)</content > UNK 0.0-0.3 <content [facility] styleCode="Bold Vikash ">Basophil Medical Count Center </content>0.04 KCUMM<content styleCode="Ital ics"> (0.0-0.3 KCUMM)</content > UNK 0 <content [facility] styleCode="Bold Vikash ">Nucleated Red Medical Blood Cell Center </content>0.0 /100<content styleCode="Ital ics"> (0 /100)</content> Basophils 0.0-1.0 <content [facility] [#/volume] in styleCode="Bold Vikash Blood by ">Basophil Medical Automated count </content>0.7 Center %<content styleCode="Ital ics"> (0.0-1.0 %)</content> UNK < 1 <content [facility] styleCode="Bold Vikash ">Immature Medical Granulocyte Center Ratio </content>0.2 %<content styleCode="Ital ics"> (< 1 %)</content> UNK 0-0.1 <content [facility] styleCode="Bold Vikash ">Immature Medical Granulocyte Center Count </content>0.01 KCUMM<content styleCode="Ital ics"> (0-0.1 KCUMM)</content > ID Date Data Source GFR(Creatinine).[id number] 08/01/2019 05:20:00 AM FAIZAN [facility] 0-0500 Name Value Range Interpretation Code Description Data Mackenzie rce(s) Supporting Document(s ) UNK > 60 <content [facility] styleCode="Bold"> Medical Cent er EGFR </content>112 GFR<content styleCode="Italic s"> (> 60 GFR)</content> ID Date Data Source CHMROUTINECCDA.[id number] 08/01/2019 05:20:00 AM EST [facility] -0500 Name Value Range Interpretation Description Data Sup porting Code Source(s) Document(s ) UNK >= 1.0 <content [facility] styleCode="Bold Medical ">AG Ratio Center </content>1.1 <content styleCode="Ital ics"> (>= 1.0 )</content> UNK 4.2-5.8 Above high normal <content [facility] styleCode="Bold Medical ">Hemoglobin Center A1C </content>6.0 % H<content styleCode="Ital ics"> (4.2-5.8 %)</content> UNK 2.3-3.5 <content [facility] styleCode="Bold Medical ">Globulin Center </content>3.1 G/DL<content styleCode="Ital ics"> (2.3-3.5 G/DL)</content> Protein 6.3-8.2 <content [facility] [Mass/volum styleCode="Bold Medical e] in Serum ">Total Protein Center or Plasma </content>6.6 G/DL<content styleCode="Ital ics"> (6.3-8.2 G/DL)</content> ID Date Data Source BMP.[id number] 08/01/2019 05:20:00 AM EST [facility] Name Value Range Interpretation Description Data Sup porting Code Source(s) Document(s ) Sodium 137-145 <content [facility] [Moles/volume] in styleCode="Bold"> Piero phs Serum or Plasma Sodium Medical </content>140 Center MEQ/L<content styleCode="Italic s"> (137-145 MEQ/L)</content> UNK 9-20 <content [facility] styleCode="Bold"> Vikash BUN </content>16 Medical MG/DL<content Center styleCode="Italic s"> (9-20 MG/DL)</content> Carbon dioxide, 22-30 <content [facility] total styleCode="Bold"> Vikash [Moles/volume] in Carbon Dioxide Medical Serum or Plasma </content>30 Center MEQ/L<content styleCode="Italic s"> (22-30 MEQ/L)</content> Potassium 3.5-5.3 <content [facility] [Moles/volume] in styleCode="Bold"> Piero phs Serum or Plasma Potassium Medical </content>4.3 Center MEQ/L<content styleCode="Italic s"> (3.5-5.3 MEQ/L)</content> Chloride 98-107 <content [facility] [Moles/volume] in styleCode="Bold"> Piero phs Serum or Plasma Chloride Medical </content>105 Center MEQ/L<content styleCode="Italic s"> (98-107 MEQ/L)</content> Creatinine 0.5-1.3 <content [facility] [Mass/volume] in styleCode="Bold"> Cristiano hs Serum or Plasma Creatinine Medical </content>0.9 Center MG/DL<content styleCode="Italic s"> (0.5-1.3 MG/DL)</content> Calcium 8.4-10. <content [facility] [Mass/volume] in 2 styleCode="Bold"> Cristiano hs Serum or Plasma Calcium Medical </content>9.3 Center MG/DL<content styleCode="Italic s"> (8.4-10.2 MG/DL)</content> Glucose 74-106 <content [facility] [Mass/volume] in styleCode="Bold"> Cristiano hs Serum or Plasma Glucose Medical </content>98 Center MG/DL<content styleCode="Italic s"> (74-106 MG/DL)</content> Alanine 7-50 <content [facility] aminotransferase styleCode="Bold"> Cristiano hs [Enzymatic Alanine Medical activity/volume] Aminotransferase Center in Serum or Plasma (ALT) </content>17 IU/L<content styleCode="Italic s"> (7-50 IU/L)</content> UNK > 60 <content [facility] styleCode="Bold"> Vikash EGFR Medical </content>112 Center GFR<content styleCode="Italic s"> (> 60 GFR)</content> Alkaline 38-126 <content [facility] phosphatase styleCode="Bold"> Vikash [Enzymatic Alkaline Medical activity/volume] Phosphatase (ALP) Cente r in Serum or Plasma </content>68 IU/L<content styleCode="Italic s"> (38-126 IU/L)</content> Aspartate 17-59 <content [facility] aminotransferase styleCode="Bold"> Cristiano hs [Enzymatic Aspartate Medical activity/volume] Aminotransferase Center in Serum or Plasma (AST) </content>25 IU/L<content styleCode="Italic s"> (17-59 IU/L)</content> Bilirubin.total 0.2-1.3 <content [facility] [Mass/volume] in styleCode="Bold"> Cristiano hs Serum or Plasma Bilirubin Total Medical </content>0.4 Center MG/DL<content styleCode="Italic s"> (0.2-1.3 MG/DL)</content> Albumin 3.5-5.0 <content [facility] [Mass/volume] in styleCode="Bold"> Cristiano hs Serum or Plasma Albumin Medical </content>3.5 Center G/DL<content styleCode="Italic s"> (3.5-5.0 G/DL)</content> ID Date Data Source Urinalysis.[id number] 07/31/2019 12:13:00 PM EST [facility] 0 Name Value Range Interpretation Description Data Sup porting Code Source(s) Document(s ) Color of Urine YELLOW <content [facility] styleCode="Davy Suh d">Color, Medical Urine Center </content>YELL OW <content styleCode="Tammy lics"> (YELLOW )</content> Glucose NEGATIVE <content [facility] [Mass/volume] styleCode="Davy Suh in Urine by d">Urine Medical Test strip Glucose Center </content>NEGA TIVE MG/DL<content styleCode="Tammy lics"> (NEGATIVE MG/DL)</conten t> UNK NEGATIVE <content [facility] styleCode="Davy Vikash d">Urine Medical Bilirubin Center </content>SMAL L <content styleCode="Tammy lics"> (NEGATIVE )</content> UNK CLEAR <content [facility] styleCode="Davy Vikash d">Urine Medical Clarity Center </content>CECILIA R <content styleCode="Tammy lics"> (CLEAR )</content> Ketones NEGATIVE <content [facility] [Mass/volume] styleCode="Davy Vikash in Urine by d">Urine Medical Test strip Ketone Center </content>NEGA TIVE MG/DL<content styleCode="Tammy lics"> (NEGATIVE MG/DL)</conten t> Specific 1.015-1.02 <content [facility] gravity of 5 styleCode="Davy Vikash Urine by Test d">Urine Medical strip Specific Center [place] </content>1.02 0 <content styleCode="Tammy lics"> (1.015-1.025 )</content> Hemoglobin NEGATIVE <content [facility] [Presence] in styleCode="Davy [place] Urine by Test d">Urine Blood Medical strip </content>NEGA Center TIVE <content styleCode="Tammy lics"> (NEGATIVE )</content> pH of Urine by 4.5-8.0 <content [facility] Test strip styleCode="Davy Vikash d">Urine pH Medical </content>5.5 Center <content styleCode="Tammy lics"> (4.5-8.0 )</content> Protein NEGATIVE <content [facility] [Mass/volume] styleCode="Davy Vikash in Urine by d">Urine Medical Test strip Protein Center </content>NEGA TIVE MG/DL<content styleCode="Tammy lics"> (NEGATIVE MG/DL)</conten t> Leukocyte NEGATIVE <content [facility] esterase styleCode="Davy Vikash [Presence] in d">Urine Medical Urine by Test Leukocyte Center strip </content>NEGA TIVE <content styleCode="Tammy lics"> (NEGATIVE )</content> Urobilinogen 0.2-1.0 <content [facility] [Units/volume] styleCode="Davy Suh in Urine by d">Urine Medical Test strip Urobilinogen Center </content>0.2 MG/DL<content styleCode="Tammy lics"> (0.2-1.0 MG/DL)</conten t> Nitrite NEGATIVE <content [facility] [Presence] in styleCode="Davy Suh Urine by Test d">Urine Medical strip Nitrite Center </content>NEGA TIVE <content styleCode="Tammy lics"> (NEGATIVE )</content> ID Date Data Source CHMROUTINECCDA.[id number] 07/31/2019 12:13:00 PM EST [facility] -0500 Name Value Range Interpretation Description Data Sup porting Code Source(s) Document(s ) Cannabinoids <content [facility] [Presence] in styleCode="Davy Suh Urine by Screen d">Cannabinoid Medical method >50 ng/mL s Center </content>NEGA TIVE NG/ML (Reference Range: not available)<br/ > ID Date Data Source Liver 07/31/2019 11:00:00 AM EST [facility] Profile.[id number] Name Value Range Interpretation Description Data Sup porting Code Source(s) Document(s ) Aspartate 17-59 <content [facility] aminotransferase styleCode="Bold"> Cristiano hs [Enzymatic Aspartate Medical activity/volume] Aminotransferase Center in Serum or Plasma (AST) </content>25 IU/L<content styleCode="Italic s"> (17-59 IU/L)</content> Alanine 7-50 <content [facility] aminotransferase styleCode="Bold"> Cristiano hs [Enzymatic Alanine Medical activity/volume] Aminotransferase Center in Serum or Plasma (ALT) </content>18 IU/L<content styleCode="Italic s"> (7-50 IU/L)</content> UNK 0.0-0.3 <content [facility] styleCode="Bold"> Vikash Bilirubin, Direct Medical </content>< 0.2 Center MG/DL<content styleCode="Italic s"> (0.0-0.3 MG/DL)</content> Alkaline 38-126 <content [facility] phosphatase styleCode="Bold"> Vikash [Enzymatic Alkaline Medical activity/volume] Phosphatase (ALP) Cente r in Serum or Plasma </content>68 IU/L<content styleCode="Italic s"> (38-126 IU/L)</content> Bilirubin.total 0.2-1.3 <content [facility] [Mass/volume] in styleCode="Bold"> Cristiano hs Serum or Plasma Bilirubin Total Medical </content>0.3 Center MG/DL<content styleCode="Italic s"> (0.2-1.3 MG/DL)</content> Albumin 3.5-5.0 <content [facility] [Mass/volume] in styleCode="Bold"> Cristiano hs Serum or Plasma Albumin Medical </content>4.2 Center G/DL<content styleCode="Italic s"> (3.5-5.0 G/DL)</content> ID Date Data Source HematologyRou.[id number] 07/31/2019 11:00:00 AM FAIZAN [facility] 0500 Name Value Range Interpretation Description Data Sup porting Code Source(s) Document(s ) Erythrocytes 4.4-5.9 <content [facility] [#/volume] in styleCode="Bold Vikash Blood by ">Red Blood Medical Automated count Cell Count Center </content>5.21 MCUMM<content styleCode="Ital ics"> (4.4-5.9 MCUMM)</content > Hematocrit 41.0-53. <content [facility] [Volume 0 styleCode="Bold Vikash Fraction] of ">Hematocrit Medical Blood by </content>43.7 Center Automated count %<content styleCode="Ital ics"> (41.0-53.0 %)</content> Leukocytes 4.4-11.0 <content [facility] [#/volume] in styleCode="Bold Vikash Blood by ">White Blood Medical Automated count Cell Count Center </content>4.75 KCUMM<content styleCode="Ital ics"> (4.4-11.0 KCUMM)</content > Hemoglobin 13.5-17. Below low normal <content [facility] [Mass/volume] in 5 styleCode="Bold Vikash Blood ">Hemoglobin Medical </content>13.4 Center G/DL L<content styleCode="Ital ics"> (13.5-17.5 G/DL)</content> Erythrocyte mean 26.0-34. Below low normal <content [facility] corpuscular 0 styleCode="Bold Vikash hemoglobin ">Mean Medical [Entitic mass] Corposcular Center by Automated Hemoglobin count </content>25.7 PG L<content styleCode="Ital ics"> (26.0-34.0 PG)</content> Erythrocyte mean 80.0-100 <content [facility] corpuscular .0 styleCode="Bold Vikash volume [Entitic ">Mean Medical volume] by Corpuscular Center Automated count Volume </content>83.9 FL<content styleCode="Ital ics"> (80.0-100.0 FL)</content> Erythrocyte mean 32.0-37. Below low normal <content [facility] corpuscular 0 styleCode="Bold Vikash hemoglobin ">Mean Corpus. Medical concentration Hgb Center [Mass/volume] by Concentration Automated count (MCHC) </content>30.7 G/DL L<content styleCode="Ital ics"> (32.0-37.0 G/DL)</content> Erythrocyte 11.5-14. Above high <content [facility] distribution 5 normal styleCode="Bold Vikash width [Ratio] by ">Red Cell Medical Automated count Distribution Center Width </content>15.1 % H<content styleCode="Ital ics"> (11.5-14.5 %)</content> Platelets 130-400 <content [facility] [#/volume] in styleCode="Bold Vikash Blood by ">Platelet Medical Automated count Count Center </content>189 KCUMM<content styleCode="Ital ics"> (130-400 KCUMM)</content > Platelet mean 8.0-11.0 <content [facility] volume [Entitic styleCode="Bold Vikash volume] in Blood ">Mean Platelet Medical by Automated Volume Center count </content>9.4 FL<content styleCode="Ital ics"> (8.0-11.0 FL)</content> UNK 0 <content [facility] styleCode="Bold Vikash ">Nucleated Red Medical Blood Cell Center </content>0.0 /100<content styleCode="Ital ics"> (0 /100)</content> UNK 0.0 <content [facility] styleCode="Bold Vikash ">Nucleated Red Medical Blood Cell Center Count </content>0.00 KCUMM<content styleCode="Ital ics"> (0.0 KCUMM)</content > ID Date Data Source GFR(Creatinine).[id number] 07/31/2019 11:00:00 AM EST [facility] 0-0500 Name Value Range Interpretation Code Description Data Mackenzie rce(s) Supporting Document(s ) UNK > 60 <content [facility] styleCode="Bold"> Medical Cent er EGFR </content>112 GFR<content styleCode="Italic s"> (> 60 GFR)</content> ID Date Data Source BMP.[id number] 07/31/2019 11:00:00 AM EST [facility] Name Value Range Interpretation Description Data Sup porting Code Source(s) Document(s ) Potassium 3.5-5.3 <content [facility] [Moles/volume] in styleCode="Bold"> [facility] Serum or Plasma Potassium Medical </content>4.1 Center MEQ/L<content styleCode="Italic s"> (3.5-5.3 MEQ/L)</content> Chloride 98-107 <content [facility] [Moles/volume] in styleCode="Bold"> [facility] Serum or Plasma Chloride Medical </content>105 Center MEQ/L<content styleCode="Italic s"> (98-107 MEQ/L)</content> Sodium 137-145 <content [facility] [Moles/volume] in styleCode="Bold"> [facility] Serum or Plasma Sodium Medical </content>140 Center MEQ/L<content styleCode="Italic s"> (137-145 MEQ/L)</content> Glucose 74-106 Above high <content [facility] [Mass/volume] in normal styleCode="Bold"> Cristiano hs Serum or Plasma Glucose Medical </content>148 Center MG/DL H<content styleCode="Italic s"> (74-106 MG/DL)</content> Creatinine 0.5-1.3 <content [facility] [Mass/volume] in styleCode="Bold"> Cristiano hs Serum or Plasma Creatinine Medical </content>0.9 Center MG/DL<content styleCode="Italic s"> (0.5-1.3 MG/DL)</content> UNK 9-20 <content [facility] styleCode="Bold"> Vikash BUN </content>19 Medical MG/DL<content Center styleCode="Italic s"> (9-20 MG/DL)</content> Carbon dioxide, 22-30 <content [facility] total styleCode="Bold"> Vikash [Moles/volume] in Carbon Dioxide Medical Serum or Plasma </content>27 Center MEQ/L<content styleCode="Italic s"> (22-30 MEQ/L)</content> UNK > 60 <content [facility] styleCode="Bold"> Vikash EGFR Medical </content>112 Center GFR<content styleCode="Italic s"> (> 60 GFR)</content> Aspartate 17-59 <content [facility] aminotransferase styleCode="Bold"> Cristiano hs [Enzymatic Aspartate Medical activity/volume] Aminotransferase Center in Serum or Plasma (AST) </content>25 IU/L<content styleCode="Italic s"> (17-59 IU/L)</content> Calcium 8.4-10. <content [facility] [Mass/volume] in 2 styleCode="Bold"> Cristiano hs Serum or Plasma Calcium Medical </content>9.7 Center MG/DL<content styleCode="Italic s"> (8.4-10.2 MG/DL)</content> Alanine 7-50 <content [facility] aminotransferase styleCode="Bold"> Cristiano hs [Enzymatic Alanine Medical activity/volume] Aminotransferase Center in Serum or Plasma (ALT) </content>18 IU/L<content styleCode="Italic s"> (7-50 IU/L)</content> Bilirubin.total 0.2-1.3 <content [facility] [Mass/volume] in styleCode="Bold"> Cristiano hs Serum or Plasma Bilirubin Total Medical </content>0.3 Center MG/DL<content styleCode="Italic s"> (0.2-1.3 MG/DL)</content> Albumin 3.5-5.0 <content [facility] [Mass/volume] in styleCode="Bold"> Cristiano hs Serum or Plasma Albumin Medical </content>4.2 Center G/DL<content styleCode="Italic s"> (3.5-5.0 G/DL)</content> Alkaline 38-126 <content [facility] phosphatase styleCode="Bold"> Vikash [Enzymatic Alkaline Medical activity/volume] Phosphatase (ALP) Cente r in Serum or Plasma </content>68 IU/L<content styleCode="Italic s"> (38-126 IU/L)</content> ID Date Data Source Liver Profile 09/11/2018 03:22:00 PM EDT [facility] Name Value Range Interpretation Description Data Sup porting Code Source(s) Document(s ) Aspartate 17-59 <content [facility] aminotransferase styleCode="Bold"> Cristiano hs [Enzymatic Aspartate Medical activity/volume] Aminotransferase Center in Serum or Plasma (AST) </content>26 IU/L<content styleCode="Italic s"> (17-59 IU/L)</content> Alanine 7-50 <content [facility] aminotransferase styleCode="Bold"> Cristiano hs [Enzymatic Alanine Medical activity/volume] Aminotransferase Center in Serum or Plasma (ALT) </content>23 IU/L<content styleCode="Italic s"> (7-50 IU/L)</content> Bilirubin.total 0.2-1.3 Below low <content [facility] [Mass/volume] in normal styleCode="Bold"> Cristiano hs Serum or Plasma Bilirubin Total Medical </content>< 0.2 Center MG/DL L<content styleCode="Italic s"> (0.2-1.3 MG/DL)</content> Alkaline 38-126 <content [facility] phosphatase styleCode="Bold"> Vikash [Enzymatic Alkaline Medical activity/volume] Phosphatase (ALP) Cente r in Serum or Plasma </content>85 IU/L<content styleCode="Italic s"> (38-126 IU/L)</content> Albumin 3.5-5.0 <content [facility] [Mass/volume] in styleCode="Bold"> Cristiano hs Serum or Plasma Albumin Medical </content>3.5 Center G/DL<content styleCode="Italic s"> (3.5-5.0 G/DL)</content> UNK 0.0-0.3 <content [facility] styleCode="Bold"> Vikash Bilirubin, Direct Medical </content>< 0.2 Center MG/DL<content styleCode="Italic s"> (0.0-0.3 MG/DL)</content> ID Date Data Source HematologyRou 09/11/2018 03:22:00 PM EDT [facility] Name Value Range Interpretation Description Data Sup porting Code Source(s) Document(s ) Hemoglobin 13.5-17. Below low normal <content [facility] [Mass/volume] in 5 styleCode="Bold Vikash Blood ">Hemoglobin Medical </content>11.9 Center G/DL L<content styleCode="Ital ics"> (13.5-17.5 G/DL)</content> Hematocrit 41.0-53. Below low normal <content [facility] [Volume 0 styleCode="Bold Vikash Fraction] of ">Hematocrit Medical Blood by </content>38.9 Center Automated count % L<content styleCode="Ital ics"> (41.0-53.0 %)</content> Erythrocytes 4.4-5.9 <content [facility] [#/volume] in styleCode="Bold Vikash Blood by ">Red Blood Medical Automated count Cell Count Center </content>4.64 MCUMM<content styleCode="Ital ics"> (4.4-5.9 MCUMM)</content > Leukocytes 4.4-11.0 <content [facility] [#/volume] in styleCode="Bold Vikash Blood by ">White Blood Medical Automated count Cell Count Center </content>8.79 KCUMM<content styleCode="Ital ics"> (4.4-11.0 KCUMM)</content > Erythrocyte mean 80.0-100 <content [facility] corpuscular .0 styleCode="Bold Vikash volume [Entitic ">Mean Medical volume] by Corpuscular Center Automated count Volume </content>83.8 FL<content styleCode="Ital ics"> (80.0-100.0 FL)</content> Erythrocyte mean 32.0-37. Below low normal <content [facility] corpuscular 0 styleCode="Bold Vikash hemoglobin ">Mean Corpus. Medical concentration Hgb Center [Mass/volume] by Concentration Automated count (MCHC) </content>30.6 G/DL L<content styleCode="Ital ics"> (32.0-37.0 G/DL)</content> Platelets 130-400 <content [facility] [#/volume] in styleCode="Bold Vikash Blood by ">Platelet Medical Automated count Count Center </content>249 KCUMM<content styleCode="Ital ics"> (130-400 KCUMM)</content > Platelet mean 8.0-11.0 <content [facility] volume [Entitic styleCode="Bold Vikash volume] in Blood ">Mean Platelet Medical by Automated Volume Center count </content>9.3 FL<content styleCode="Ital ics"> (8.0-11.0 FL)</content> Erythrocyte mean 26.0-34. Below low normal <content [facility] corpuscular 0 styleCode="Bold Vikash hemoglobin ">Mean Medical [Entitic mass] Corposcular Center by Automated Hemoglobin count </content>25.6 PG L<content styleCode="Ital ics"> (26.0-34.0 PG)</content> Erythrocyte 11.5-14. Above high <content [facility] distribution 5 normal styleCode="Bold Vikash width [Ratio] by ">Red Cell Medical Automated count Distribution Center Width </content>14.6 % H<content styleCode="Ital ics"> (11.5-14.5 %)</content> UNK 0.0 <content [facility] styleCode="Bold Vikash ">Nucleated Red Medical Blood Cell Center Count </content>0.00 KCUMM<content styleCode="Ital ics"> (0.0 KCUMM)</content > UNK 0 <content [facility] styleCode="Bold Vikash ">Nucleated Red Medical Blood Cell Center </content>0.0 /100<content styleCode="Ital ics"> (0 /100)</content> ID Date Data Source GFR(Creatinine) 09/11/2018 03:22:00 PM EDT [facility] Name Value Range Interpretation Code Description Data Mackenzie rce(s) Supporting Document(s ) UNK > 60 <content [facility] styleCode="Bold"> Medical Cent er EGFR </content>81 GFR<content styleCode="Italic s"> (> 60 GFR)</content> ID Date Data Source [id number] 09/11/2018 03:22:00 PM EDT [facility] Name Value Range Interpretation Description Data Sup porting Code Source(s) Document(s ) UNK 30-110 <content [facility] styleCode="Bold Medical ">Amylase Center </content>49 IU/L<content styleCode="Ital ics"> (30-110 IU/L)</content> Lactate 0.7-2.0 <content [facility] [Mass/volum styleCode="Bold Medical e] in Serum ">Lactic Acid Center or Plasma </content>0.8 MMOLL<content styleCode="Ital ics"> (0.7-2.0 MMOLL)</content > Lipase 23-300 <content [facility] [Enzymatic styleCode="Bold Medical activity/vo ">Lipase Center lume] in </content>117 Serum or IU/L<content Plasma styleCode="Ital ics"> (23-300 IU/L)</content> ID Date Data Source CardiacMarkers 09/11/2018 03:22:00 PM EDT [facility] Name Value Range Interpretation Description Data Sup porting Code Source(s) Document(s ) Troponin < 0.034 <content [facility]cardiac styleCode="Bold Vikash [Mass/volume ">Troponin I Medical ] in Serum </content>< Center or Plasma 0.012 NG/ML<content styleCode="Ital ics"> (< 0.034 NG/ML)</content > ID Date Data Source BMP 09/11/2018 03:22:00 PM EDT [facility] Name Value Range Interpretation Description Data Sup porting Code Source(s) Document(s ) Potassium 3.5-5.3 <content [facility] [Moles/volume] in styleCode="Bold"> Piero phs Serum or Plasma Potassium Medical </content>4.7 Center MEQ/L<content styleCode="Italic s"> (3.5-5.3 MEQ/L)</content> UNK 9-20 <content [facility] styleCode="Bold"> Vikash BUN </content>19 Medical MG/DL<content Center styleCode="Italic s"> (9-20 MG/DL)</content> Chloride 98-107 <content [facility] [Moles/volume] in styleCode="Bold"> [facility]o phs Serum or Plasma Chloride Medical </content>105 Center MEQ/L<content styleCode="Italic s"> (98-107 MEQ/L)</content> Carbon dioxide, 22-30 <content [facility] total styleCode="Bold"> Vikash [Moles/volume] in Carbon Dioxide Medical Serum or Plasma </content>30 Center MEQ/L<content styleCode="Italic s"> (22-30 MEQ/L)</content> Sodium 137-145 <content [facility] [Moles/volume] in styleCode="Bold"> Piero phs Serum or Plasma Sodium Medical </content>140 Center MEQ/L<content styleCode="Italic s"> (137-145 MEQ/L)</content> Alanine 7-50 <content [facility] aminotransferase styleCode="Bold"> Cristiano hs [Enzymatic Alanine Medical activity/volume] Aminotransferase Center in Serum or Plasma (ALT) </content>23 IU/L<content styleCode="Italic s"> (7-50 IU/L)</content> UNK > 60 <content [facility] styleCode="Bold"> Vikash EGFR </content>81 Medical GFR<content Center styleCode="Italic s"> (> 60 GFR)</content> Glucose 74-106 Above high <content [facility] [Mass/volume] in normal styleCode="Bold"> Cristiano hs Serum or Plasma Glucose Medical </content>118 Center MG/DL H<content styleCode="Italic s"> (74-106 MG/DL)</content> Calcium 8.4-10. <content [facility] [Mass/volume] in 2 styleCode="Bold"> Cristiano hs Serum or Plasma Calcium Medical </content>9.1 Center MG/DL<content styleCode="Italic s"> (8.4-10.2 MG/DL)</content> Creatinine 0.5-1.3 <content [facility] [Mass/volume] in styleCode="Bold"> Cristiano hs Serum or Plasma Creatinine Medical </content>1.2 Center MG/DL<content styleCode="Italic s"> (0.5-1.3 MG/DL)</content> Aspartate 17-59 <content [facility] aminotransferase styleCode="Bold"> Cristiano hs [Enzymatic Aspartate Medical activity/volume] Aminotransferase Center in Serum or Plasma (AST) </content>26 IU/L<content styleCode="Italic s"> (17-59 IU/L)</content> Albumin 3.5-5.0 <content [facility] [Mass/volume] in styleCode="Bold"> Cristiano hs Serum or Plasma Albumin Medical </content>3.5 Center G/DL<content styleCode="Italic s"> (3.5-5.0 G/DL)</content> Alkaline 38-126 <content [facility] phosphatase styleCode="Bold"> Vikash [Enzymatic Alkaline Medical activity/volume] Phosphatase (ALP) Cente r in Serum or Plasma </content>85 IU/L<content styleCode="Italic s"> (38-126 IU/L)</content> Bilirubin.total 0.2-1.3 Below low <content [facility] [Mass/volume] in normal styleCode="Bold"> Cristiano hs Serum or Plasma Bilirubin Total Medical </content>< 0.2 Center MG/DL L<content styleCode="Italic s"> (0.2-1.3 MG/DL)</content> Procedure Social History Code Duration Value Status Description Data Source(s ) Smoking 02/27/2020 02:31:00 Daily Smoker completed Daily Smoker S [facility] EDT Center Smoking 02/27/2020 12:40:00 Daily Smoker completed Daily Smoker [facility] EDT Center Smoking 02/17/2020 02:02:00 Daily Smoker completed Daily Smoker S [facility] EDT Center Smoking 02/17/2020 01:27:00 Daily Smoker completed Daily Smoker S [facility] EDT Center Smoking 02/15/2020 06:09:00 Daily Smoker completed Daily Smoker S [facility] EDT Center Smoking 02/15/2020 06:07:00 Daily Smoker completed Daily Smoker [facility] EDT Center Smoking 02/07/2020 11:01:00 Daily Smoker completed Daily Smoker [facility] EDT Center Smoking 02/07/2020 11:00:00 Daily Smoker completed Daily Smoker [facility] EDT Center Smoking 02/07/2020 10:54:00 Daily Smoker completed Daily Smoker [facility] EDT Center Smoking 07/31/2019 04:46:00 Daily Smoker completed Daily Smoker S [facility] EST Center Smoking 07/31/2019 03:08:00 Daily Smoker completed Daily Smoker [facility] EST Center Smoking 07/31/2019 10:00:00 Daily Smoker completed Daily Smoker S [facility] EST Center Smoking 07/31/2019 09:35:00 Daily Smoker completed Daily Smoker S [facility] EST Center Smoking 07/31/2019 09:13:00 Daily Smoker completed Daily Smoker S [facility] EST Center Smoking 03/21/2019 11:53:00 Daily Smoker completed Daily Smoker S [facility] EDT Center Smoking 03/21/2019 10:30:00 Daily Smoker completed Daily Smoker [facility] EDT Center Smoking 03/21/2019 10:27:00 Daily Smoker completed Daily Smoker S [facility] EDT Center Smoking 02/05/2019 02:38:00 Daily Smoker completed Daily Smoker S [facility] EDT Center Smoking 02/05/2019 02:38:00 Daily Smoker completed Daily Smoker S [facility] EDT Center Smoking 02/05/2019 02:31:00 Daily Smoker completed Daily Smoker S [facility] EDT Center Smoking 09/11/2018 04:25:00 Daily Smoker completed Daily Smoker S [facility] EDT Center Smoking 09/11/2018 02:48:00 Daily Smoker completed Daily Smoker S [facility] EDT Center Smoking 09/11/2018 02:31:00 Daily Smoker completed Daily Smoker S [facility] EDT Center Smoking 09/08/2018 10:55:00 Daily Smoker completed Daily Smoker S [facility] EDT Center Smoking 09/08/2018 09:56:00 Daily Smoker completed Daily Smoker S [facility] EDT Center Smoking 09/08/2018 09:42:00 Daily Smoker completed Daily Smoker S [facility] EDT Center Smoking 06/29/2018 06:42:00 Daily Smoker completed Daily Smoker S [facility] EST Center Smoking 06/29/2018 06:30:00 Daily Smoker completed Daily Smoker S [facility] EST Center Smoking 06/29/2018 06:21:00 Daily Smoker completed Daily Smoker S [facility] EST Center Smoking 06/28/2018 09:15:00 Daily Smoker completed Daily Smoker S [facility] EST Center Smoking 06/28/2018 08:10:00 Daily Smoker completed Daily Smoker [facility] EST Center Smoking 06/28/2018 08:00:00 Daily Smoker completed Daily Smoker S [facility] EST Center Smoking 06/06/2018 09:56:00 Daily Smoker completed Daily Smoker S [facility] EST Center Smoking 06/06/2018 09:05:00 Daily Smoker completed Daily Smoker S [facility] EST Center Smoking 06/06/2018 08:52:00 Daily Smoker completed Daily Smoker S [facility] EST Center Vital Signs ID Date Data Source UNK Name Value Range Interpretation Code Description Data Source(s) Body weight 80.373670 kg 80.826184 kg [facility] Body temperature 36.618227 36.873826 [facility] Respiratory rate 18 /min 18 /min [facility] Oxygen saturation 97 % 97 % [facility] in Arterial blood [facility] by Pulse oximetry Heart rate 83 /min 83 /min [facility] Body height 172.259526 172.439128 cm [facility] Diastolic blood 85 mm[Hg] 85 mm[Hg] [facility] pressure Medical Center Systolic blood 166 mm[Hg] 166 mm[Hg] [facility] Body mass index 26.8 kg/m2 26.8 kg/m2 [facility] [Ratio] Medical [facility] Oxygen saturation 98 % 98 % [facility] in Arterial blood [facility] Center by Pulse oximetry Heart rate 98 /min 98 /min [facility] Diastolic blood 86 mm[Hg] 86 mm[Hg] [facility] pressure Medical Center Systolic blood 137 mm[Hg] 137 mm[Hg] [facility] Body temperature 37.251306 37.358497 [facility] Respiratory rate 18 /min 18 /min [facility] Oxygen saturation 97 % 97 % [facility] in Arterial blood [facility] Center by Pulse oximetry Heart rate 107 /min 107 /min [facility] Diastolic blood 100 mm[Hg] 100 mm[Hg] [facility] pressure Medical Center Systolic blood 160 mm[Hg] 160 mm[Hg] [facility] Oxygen saturation 96 % 96 % [facility] in Arterial blood [facility] Center by Pulse oximetry Respiratory rate 16 /min 16 /min [facility] Oxygen saturation 92 % 92 % [facility] in Arterial blood [facility] Center by Pulse oximetry Heart rate 97 /min 97 /min [facility] Diastolic blood 75 mm[Hg] 75 mm[Hg] [facility] pressure Medical Center Systolic blood 136 mm[Hg] 136 mm[Hg] [facility] Body weight 68.516134 kg 68.476583 kg [facility] Body temperature 37.791041 37.369394 [facility] Respiratory rate 17 /min 17 /min [facility] Oxygen saturation 98 % 98 % [facility] in Arterial blood [facility] by Pulse oximetry Heart rate 105 /min 105 /min [facility] Body height 177.869404 177.819364 cm [facility] Diastolic blood 83 mm[Hg] 83 mm[Hg] [facility] pressure Medical Center Systolic blood 120 mm[Hg] 120 mm[Hg] [facility] Body mass index 21.5 kg/m2 21.5 kg/m2 [facility] (BMI) [Ratio] Medical [facility] Body temperature 36.725746 36.902783 [facility] Respiratory rate 17 /min 17 /min [facility] Oxygen saturation 99 % 99 % [facility] in Arterial blood Medical Center by Pulse oximetry Heart rate 79 /min 79 /min [facility] Diastolic blood 72 mm[Hg] 72 mm[Hg] [facility] Medical Center Systolic blood 133 mm[Hg] 133 mm[Hg] [facility] Medical [place] Body temperature 36.777374 36.014620 [facility] Respiratory rate 18 /min 18 /min [facility] Oxygen saturation 97 % 97 % [facility] in Arterial blood [facility] Center by Pulse oximetry Heart rate 77 /min 77 /min [facility] Diastolic blood 79 mm[Hg] 79 mm[Hg] [facility] pressure Medical Center Systolic blood 165 mm[Hg] 165 mm[Hg] [facility] [place] Body temperature 36.482546 36.216775 [facility] Respiratory rate 20 /min 20 /min [facility] Heart rate 50 /min 50 /min [facility] Diastolic blood 65 mm[Hg] 65 mm[Hg] [facility] pressure Medical Center Systolic blood 133 mm[Hg] 133 mm[Hg] [facility] Center Systolic blood 142 mm[Hg] 142 mm[Hg] [facility] [place] Body temperature 36.898309 36.278167 [facility] Respiratory rate 20 /min 20 /min [facility] Heart rate 53 /min 53 /min [facility] Diastolic blood 79 mm[Hg] 79 mm[Hg] [facility] [place] Body temperature 36.289538 36.900338 [facility] Respiratory rate 20 /min 20 /min [facility] Heart rate 57 /min 57 /min [facility] Diastolic blood 72 mm[Hg] 72 mm[Hg] [facility] Center Systolic blood 132 mm[Hg] 132 mm[Hg] [facility] [place] Body height 172.745722 172.993148 cm [facility] [place] Body weight 74.195417 kg 74.972553 kg [facility] [place] Body temperature 36.453636 36.756880 [facility] Respiratory rate 18 /min 18 /min [facility] Heart rate 67 /min 67 /min [facility] Body height 172.079001 172.098596 cm [facility] Diastolic blood 87 mm[Hg] 87 mm[Hg] [facility] pressure Medical Center Systolic blood 151 mm[Hg] 151 mm[Hg] [facility] Body mass index 25.09 kg/m2 25.09 kg/m2 [facility] osephs (BMI) [Ratio] Medical [facility] ter Body temperature 37.351115 37.831873 [facility] Respiratory rate 17 /min 17 /min [facility] Heart rate 65 /min 65 /min [facility] Diastolic blood 78 mm[Hg] 78 mm[Hg] [facility] [place] Systolic blood 148 mm[Hg] 148 mm[Hg] [facility] Body temperature 37.849354 37.124731 [facility] Respiratory rate 18 /min 18 /min [facility] Heart rate 83 /min 83 /min [facility] Diastolic blood 84 mm[Hg] 84 mm[Hg] [facility] Systolic blood 183 mm[Hg] 183 mm[Hg] [facility] Body weight 84.550361 kg 84.525338 kg [facility] Oxygen saturation 98 % 98 % [facility] in [facility] blood [facility] by Pulse oximetry Body temperature 37.304473 37.620334 [facility] Respiratory rate 18 /min 18 /min [facility] Oxygen saturation 100 % 100 % [facility] blood [facility] by Pulse oximetry Heart rate 63 /min 63 /min [facility] Diastolic blood 88 mm[Hg] 88 mm[Hg] [facility] Center Systolic blood 154 mm[Hg] 154 mm[Hg] [facility] Body temperature 36.764433 36.170652 [facility] Respiratory rate 17 /min 17 /min [facility] Oxygen saturation 100 % 100 % [facility] in [facility] blood [facility] by Pulse oximetry Heart rate 59 /min 59 /min [facility] Diastolic blood 71 mm[Hg] 71 mm[Hg] [facility] pressure Medical Center Systolic blood 161 mm[Hg] 161 mm[Hg] [facility] Center Body temperature 37.795514 37.015737 [facility] Respiratory rate 20 /min 20 /min [facility] Oxygen saturation 98 % 98 % [facility] in Arterial blood Medical Center by Pulse oximetry Heart rate 91 /min 91 /min [facility] Diastolic blood 79 mm[Hg] 79 mm[Hg] [facility] pressure Medical Center Systolic blood 138 mm[Hg] 138 mm[Hg] [facility] Center Body weight 83.086397 kg 83.151117 kg [facility] Measured [facility] Center Body temperature 37.432176 37.755084 [facility] Respiratory rate 17 /min 17 /min [facility] Oxygen saturation 95 % 95 % [facility] in Arterial blood Medical Center by Pulse oximetry Heart rate 112 /min 112 /min [facility] Body height 172.430737 172.351866 cm [facility] Diastolic blood 83 mm[Hg] 83 mm[Hg] [facility] pressure Medical Center Systolic blood 150 mm[Hg] 150 mm[Hg] [facility] Center Body mass index 28.1 kg/m2 28.1 kg/m2 [facility] (BMI) [Ratio] Medical [facility] Body temperature 36.839310 36.146535 [facility] Respiratory rate 17 /min 17 /min [facility] Oxygen saturation 98 % 98 % [facility] blood Medical Center by Pulse oximetry Heart rate 72 /min 72 /min [facility] Diastolic blood 71 mm[Hg] 71 mm[Hg] [facility] pressure Medical Center Systolic blood 140 mm[Hg] 140 mm[Hg] [facility] Medical Center Body weight 70.527731 kg 70.471461 kg [facility] Body temperature 36.733624 36.159336 [facility] Respiratory rate 16 /min 16 /min [facility] Oxygen saturation 98 % 98 % [facility] in Arterial blood [facility] by Pulse oximetry Heart rate 78 /min 78 /min [facility] Body height 177.401299 177.403654 cm [facility] Medical [place] Diastolic blood 78 mm[Hg] 78 mm[Hg] [facility] pressure Medical Center Systolic blood 142 mm[Hg] 142 mm[Hg] [facility] Medical Center Body mass index 22.1 kg/m2 22.1 kg/m2 [facility] (BMI) [Ratio] Medical [facility] Body weight 89.818623 kg 89.974057 kg [facility] Measured [facility] Body temperature 37.272499 37.020113 [facility] Respiratory rate 18 /min 18 /min [facility] Oxygen saturation 100 % 100 % [facility] in Arterial blood Medical Center by Pulse oximetry Heart rate 84 /min 84 /min [facility] Body height 172.893203 172.601239 cm [facility] Medical [place] Diastolic blood 86 mm[Hg] 86 mm[Hg] [facility] Medical Center Systolic blood 159 mm[Hg] 159 mm[Hg] [facility] Center Body mass index 30.1 kg/m2 30.1 kg/m2 [facility] (BMI) [Ratio] Medical [facility] ter Body temperature 36.553590 36.547669 [facility] Respiratory rate 19 /min 19 /min [facility] Oxygen saturation 98 % 98 % [facility] in Arterial blood Medical Center by Pulse oximetry Heart rate 85 /min 85 /min [facility] Diastolic blood 75 mm[Hg] 75 mm[Hg] [facility] pressure Medical Center Systolic blood 134 mm[Hg] 134 mm[Hg] [facility] Center Body temperature 37.567000 37.748718 [facility] Respiratory rate 18 /min 18 /min [facility] Oxygen saturation 96 % 96 % [facility] in Arterial blood [facility] Center by Pulse oximetry Heart rate 96 /min 96 /min [facility] Diastolic blood 77 mm[Hg] 77 mm[Hg] [facility] Medical Center Systolic blood 133 mm[Hg] 133 mm[Hg] [facility] Center Body weight 85.392765 kg 85.390324 kg [facility] Measured [facility] Center Body temperature 37.249634 37.114230 [facility] Respiratory rate 18 /min 18 /min [facility] Oxygen saturation 98 % 98 % [facility] in Arterial blood [facility] Center by Pulse oximetry Heart rate 92 /min 92 /min [facility] Body height 180.347944 180.642954 cm [facility] Diastolic blood 78 mm[Hg] 78 mm[Hg] [facility] pressure [facility] Systolic blood 154 mm[Hg] 154 mm[Hg] [facility] Body mass index 26.1 kg/m2 26.1 kg/m2 [facility] (BMI) [Ratio] Medical [facility] Body temperature 36.940170 36.416751 [facility] Respiratory rate 18 /min 18 /min [facility] Oxygen saturation 98 % 98 % [facility] in Arterial blood [facility] Center by Pulse oximetry Heart rate 76 /min 76 /min [facility] Diastolic blood 87 mm[Hg] 87 mm[Hg] [facility] pressure [facility] Systolic blood 132 mm[Hg] 132 mm[Hg] [facility] Body temperature 36.205971 36.512311 [facility] Respiratory rate 17 /min 17 /min [facility] Oxygen saturation 98 % 98 % [facility] in Arterial blood [facility] Center by Pulse oximetry Heart rate 72 /min 72 /min [facility] Diastolic blood 91 mm[Hg] 91 mm[Hg] [facility] Systolic blood 150 mm[Hg] 150 mm[Hg] [facility] Patient Treatment Plan of Care Planned Activity Planned Date Details Description Data Source (s) Bacitracin 0.5 UNT/MG [facility] Topical Ointment [place] Ketorolac Tromethamine 10 MG [facility] Oral Tablet [place]
[2020-03-17 17:10] VITALS: TEMP 97.8; BMI 26.9
--- NOTE | 2020-03-17 18:26 | HP ---
COWS - Scale Resting Pulse: 1= MS 81-100 Sweatin= No chills or Flushing Restless Observation: 0= Sits Still Pupil Size: 0= Normal to Room Light Bone or Joint Aches: 0= None Runny Nose/ Eye Tearin= None GI Upset > 30mins: 0= None Tremor Observation: 0= None Yawning Observation: 0= None Anxiety or Irritability: 0= None Goose Flesh Skin: 0=Smooth Skin COWS Score: 1 CIWA Score Nausea/Vomitin-No Nausea/No Vomiting Muscle Tremors: None Anxiety: 0-No Anxiety, at Ease Agitation: 0-Normal Activity Paroxysmal Sweats: No Perspiration Orientation: 0-Oriented Tacttile Disturbances: 0-None Auditory Disturbances: 0-None Visual Disturbances: 0-None Headache: 0-None Present CIWA-Ar Total Score: 0 - Admission Criteria OASAS Guidelines: Admission for Medically Managed Detox: Requires at least one of the followin. CIWA greater than 12 2. Seizures within the past 24 hours 3. Delirium tremens within the past 24 hours 4. Hallucinations within the past 24 hours 5. Acute intervention needed for co occurring medical disorder 6. Acute intervention needed for co occurring psychiatric disorder 7. Severe withdrawal that cannot be handled at a lower level of care (continued vomiting, continued diarrhea, abnormal vital signs) requiring intravenous medication and/or fluids 8. Admitting History and Physical - Past Medical History Cardiovascular: Yes: HTN. No: Hyperlipdemia Rheumatology: Yes: Gout - Past Surgical History Past Surgical History: Yes: None - Smoking History Smoking history: Current every day smoker Have you smoked in the past 12 months: Yes Aproximately how many cigarettes per day: 20 - Alcohol/Substance Use Hx Alcohol Use: Yes History of Substance Use: reports: Heroin - Social History ADL: Independent History of Recent Travel: No Admission ROS [facility] Allergies/Adverse Reactions: Allergies Allergy/AdvReac Type Severity Reaction Status Date / Time No Known Allergies Allergy Verified 03/17/20 19:43 History of Present Illness: 59 y.o. male requesting rehab from alcohol and opiate use use , reports 3-4 cans x 24 oz daily , first age of use 19 , denies seizures , blackouts , denies tremors , latest use today . Used to drink alcohol more heavily in the past , liquor since age 19 through 22 when he was incarcerated x 17 years and had a seizure . Never on meds and no recurrence of seizures . heroin : 1 bag /day via inhalation denies IVDU , OD most recently 1 yr ago . @ [facility] MDD 160 mg left program in June 2019 @ 140 mg , . Latest use 2 days ago . PCP - 3 bags/day tobacco : 1/2 ppd PMHX / PSHX : denies PSYCh : denies SI /SA . Exam Limitations: No Limitations - Review of Systems Constitutional: No Symptoms Reported EENT: reports: No Symptoms Reported, Other (reading glasses) Respiratory: reports: No Symptoms reported Cardiac: reports: No Symptoms Reported GI: reports: No Symptoms Reported : reports: No Symptoms Reported Musculoskeletal: reports: No Symptoms Reported Integumentary: reports: No Symptoms Reported Neuro: reports: No Symptoms reported Endocrine: reports: See HPI (bordeline DM) Hematology: reports: No Symptoms Reported Psychiatric: reports: Orientated x3 Patient History - Patient Medical History Hx Anemia: No Hx Asthma: No Hx Chronic Obstructive Pulmonary Disease (COPD): No Hx Cancer: No Hx Cardiac Disorders: No Hx Congestive Heart Failure: No Hx Hypertension: Yes Hx Hypercholesterolemia: No Hx Pacemaker: No HX Cerebrovascular Accident: No Hx Seizures: No Hx Dementia: No Hx Diabetes: No Hx Gastrointestinal Disorders: No Hx Liver Disease: No Hx Genitourinary Disorders: No Hx Sexually Transmitted Disorders: No Hx Renal Disease (ESRD): No Hx Thyroid Disease: No Hx Human Immunodeficiency Virus (HIV): No (NEGATIVE HX last 2016 ) Hx Hepatitis C: No Hx Depression: No Hx Suicide Attempt: No Hx Bipolar Disorder: No Hx Schizophrenia: No - Patient Surgical History Past Surgical History: No Hx Neurologic Surgery: No Hx Cataract Extraction: No Hx Cardiac Surgery: No Hx Lung Surgery: No Hx Breast Surgery: No Hx Breast Biopsy: No Hx Abdominal Surgery: No Hx Appendectomy: No Hx Cholecystectomy: No Hx Genitourinary Surgery: No Hx Section: No Hx Orthopedic Surgery: No Anesthesia Reaction: No - PPD History Date: 03/07/20 Results: 0 mm - Smoking Cessation Smoking history: Current every day smoker Have you smoked in the past 12 months: Yes Aproximately how many cigarettes per day: 20 Cigars Per Day: 0 Hx Chewing Tobacco Use: No Initiated information on smoking cessation: Yes 'Breaking Loose' booklet given: 03/17/20 Admission Physical Exam [facility] - Vital Signs Vital Signs: Vital Signs - 24 hr 03/17/20 17:06 Temperature 97.8 F Pulse Rate 85 Respiratory 14 Rate Blood Pressure 143/73 - Physical General Appearance: Yes: No Apparent Distress HEENTM: Yes: EOMI, Hearing grossly Normal, Normocephalic, Normal Voice Respiratory: Yes: Chest Non-Tender, Lungs Clear, Normal Breath Sounds, No Respiratory Distress, No Accessory Muscle Use Neck: Yes: No masses,lesions,Nodules, Trachea in good position Cardiology: Yes: Regular Rhythm, Regular Rate, S1, S2 Abdominal: Yes: Non Tender, Soft Musculoskeletal: Yes: Gait Steady Extremities: Yes: Normal Range of Motion, Non-Tender Neurological: Yes: Fully Oriented, Alert, Motor Strength 5/5, Normal Mood/Affect Integumentary: Yes: Warm - Diagnostic (1) Alcohol use disorder Current Visit: Yes Status: Chronic (2) Opioid use disorder Current Visit: Yes Status: Chronic (3) Nicotine dependence Current Visit: Yes Status: Chronic Qualifiers: Nicotine product type: cigarettes Breathalyzer - Breathalyzer Breathalyzer: 0 Urine Drug Screen - Test Device Lot number: [id number] Expiration date: 10/01/21 - Control Is test valid?: Yes - Results Drug screen NEGATIVE: No Urine drug screen results: FEN-Fentanyl, MOP-Opiates, MTD-Methadone Inpatient Rehab Admission - Rehab Decision to Admit Inpatient rehab admission?: Yes - Initial Determination Are CD services needed?: Yes Free of communicable disease: Yes Not in need of hospitalization: Yes - Rehab Admission Criteria Previous failed treatment: Yes Poor recovery environment: Yes Comorbidities: No Lacks judgement: Yes Patient is meeting Inpatient Rehab admission criteria:: Yes
[2020-03-17] MEDS ORDERED: LOPERAMIDE HCL 2 MG CAPSULE PO PRN (18:31)
[2020-03-17] MEDS ORDERED: guaiFENesin 200 MG/10 ML 10 ML UNIT-DOSE CUPS PO PRN (18:31)
[2020-03-17] MEDS ORDERED: P-EPHED 60MG/TRIPROLIDI 2.5MG TABLET PO PRN (18:31)
[2020-03-17] MEDS ORDERED: ACETAMINOPHEN 325 MG TABLET (FP) PO PRN (18:31)
[2020-03-17] MEDS ORDERED: MAGNESIUM CITRATE 300 ML BOTTLE PO PRN (18:31)
[2020-03-17] MEDS ORDERED: NICOTINE POLACRILEX 2 MG GUM BC PRN (18:31)
[2020-03-17] MEDS ORDERED: IBUPROFEN 400 MG TABLET (FP) PO PRN (18:31)
[2020-03-17] MEDS ORDERED: MAG HYDROX/AL HYDROX/SIMETH 30 ML UNIT-DOSE CUP PO PRN (18:31)
[2020-03-17] MEDS ORDERED: MAGNESIUM HYDROX 2400MG/30ML ORAL SUSPENSION 30 ML CUP PO PRN (18:31)
--- OUTSIDE RECORDS SUMMARY | 2020-03-17 19:41 | XMS ---
:1960 [facility] Care Team Providers Name Role Phone SHAHRIAR GOMEZ Unavailable Unavailable ED STAFF PHYSICIAN Unavailable Unavailable ED STAFF PHYSICIAN Unavailable Unavailable ED STAFF PHYSICIAN Unavailable Unavailable [facility]CC Unavailable Unavailable ED STAFF PHYSICIAN Unavailable Unavailable [...] is protected by Article 27-F of the [facility] Public Health law. If you continue you may haveaccess to information: Regarding HIV / AIDS; Provided by facilities licensed or operated by the [facility] Office of Mental Health; or Provided by the [facility] Office for People With Developmental Disabilities. If such information is present, then the following [facility] mandated warning applies: This information has been [...] Indications Data Source(s ) Emergency Attender: CHANDRIKA ED H 02/27/2020 [facility] STAFF 12:26:00 PM EDT Medical C enter PHYSICIANAttender: - 02/27/2020 [place] ED STAFF 02:59:00 PM EDT PHYSICIANAttender: STAFF ED STAFF PHYSICIANAdmitter: [facility] ED STAFF PHYSICIAN Patient discharged. Emergency Attender: STAFF ED STAFF H 02/17/2020 01:23:00 AM [facility] Medical PHYSICIAN EDT - 02/17/2020 04:43:00 Center AM EDT Patient discharged. Emergency Attender: CHANDRIKA ED STAFF H 02/15/2020 05:59:00 PM [facility] PHYSICIANAttender: STAFF ED EDT - 02/15/2020 [facility] STAFF PHYSICIANAdmitter: CHANDRIKA 11:13:00 PM EDT ED STAFF PHYSICIAN Patient discharged. Emergency Attender: ED STAFF H 02/07/2020 10:34:00 PM [facility] PHYSICIANAttender: STAFF ED EDT - 02/08/2020 [facility] STAFF PHYSICIANAdmitter: ED 01:10:00 AM EDT STAFF PHYSICIAN Patient discharged. Outpatient Attender: [id number] 08/13/2019 12:23:[address] [facility] Patient admitted. Inpatient Attender: JASON BESS H-HAL6 07/31/2019 08:42:00 [facility] CHELYERAttender: STAFF ED STAFF AM EST - 08/01/19 [facility] PHYSICIANAdmitter: JASON 03:50:00 PM FAIZAN Brysoner: JASON GOMEZ Patient discharged. Emergency H 03/21/2019 10:25:00 PM EDT - [address] [place] [address] 02:09:00 AM EDT Patient discharged. Emergency H 02/05/2019 02:17:00 PM EDT - 019 [facility] 03:20:00 PM EDT Patient discharged. Emergency H 09/11/2018 02:20:00 PM EDT [facility] Emergency H 09/08/2018 09:18:00 PM EDT [facility] Medications Medication Brand Start Product Dose Route Administrative Pharmacy julia Indications Reaction Description Data Name Date Form Instructions Instructions Source(s) Bacitracin bacitr 1 complet Hay t 0.5 UNT/MG acin [facility] Topical 500 Medical Ointment unit/g Center bacitracin david 500 Ointme unit/gram nt, Ointment, Ordere Ordered By: d By: Melva Razo, porter FNPDirectio Penar, ns: 1 FNPDir application ection topical s: 1 twice a day applic ation topica l twice a day Ketorolac ketoro 1 complet [facility] [place] [facility] s e 10 MG mg Medical Oral Tablet Tablet [place] ketorolac , 10 mg Ordere Tablet, d By: Ordered By: Chandrika Chakraborty , MDDirection MDDire s: 1 tablet ctions oral every : 1 six hours tablet PRN pain oral every six hours PRN pain Insurance Providers Payer name Policy type Policy ID Covered Covered republican's Policy P ash / Coverage republican ID relationship to [facility] ormation type thomas [facility] [id number] SP [id number] STRGY-AFF [facility] [id number] SP [id number] STRGY-AFF AFF[place] O [id number] 01 [id number] HEALTH PLAN AFFINITY O [id number] 01 [id number] 400 HEALTH PLAN AFFINITY O [id number] 01 [id number] 400 HEALTH PLAN AFFINITY W [id number] 01 [id number] W [id number] 01 [id number] AFFINITY O [id number] 01 [id number] [facility] [id number] SP [id number] STRGY-AFF METHADONE SP MAINTENANCE PROGRAM [facility] [id number] SP [id number] STRGY-AFF [facility] [id number] SP [id number] STRGY-AFF MEDICAID [id number] SP [id number] Problems, Conditions, and Diagnoses Code Display Name [...] ENCOUNTER 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, HALLUCINOGEN Diagnosis 02/27/2020 [facility] uncomplicated ABUSE, 12:26:00 PM Medical UNCOMPLICATED [...] F17.210 Nicotine dependence, NICOTINE Diagnosis 02/17/2020 [facility] cigarettes, DEPENDENCE, 01:23:00 AM Medical uncomplicated CIGARETTES, EDT Center UNCOMPLICATED I10 Essential (primary) ESSENTIAL Diagnosis 02/17/2020 [facility] hypertension (PRIMARY) 01:23:00 AM Medical HYPERTENSION EDT Center E11.9 Type 2 diabetes TYPE 2 DIABETES Diagnosis 02/17/2020 [facility] mellitus without MELLITUS WITHOUT 01:23:00 AM M edical complications COMPLICATIONS EDT Center R40.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 LEONID COMA Diagnosis 02/17/2020 [facility] uSh score 13-15, SCALE SCORE 01:23:00 AM Medical [...] EDT Center Results ID Date Data Source [id number] 03/05/2020 02:00:00 PM EDT [facility] Name Value Range Interpretation Description Data Sup porting Code Source(s) Document(s ) SARS [facility] coronavirus 2 RNA This lab was ordered by [facility] Ac ct Bill Inter and reported by [facility]. ID Date Data Source Liver 02/27/2020 01:40:00 PM EDT [facility] Profile.[id number] Name Value Range Interpretation Description Data Sup [...] (3.5-5.0 G/DL)</content> UNK 0.0-0.3 <content Saint styleCode="Bold"> [facility] Bilirubin, Direct Medical </content>< 0.2 Center MG/DL<content styleCode="Italic s"> (0.0-0.3 MG/DL)</content> ID Date Data Source HematologyRou.[id number] 02/27/2020 01:40:00 PM EDT [facility] 0400 Name Value Range Interpretation Description Data Sup porting Code Source(s) Document(s ) Leukocytes 4.4-11.0 Above high <content Saint [#/volume] in normal styleCode="Bold [facility] Blood by ">White Blood Medical Automated [...] (0.0 KCUMM)</content > ID Date Data Source GFR(Creatinine).[id number] 02/27/2020 01:40:00 PM EDT [facility] 0-0400 Name Value Range Interpretation Code Description Data Mackenzie rce(s) Supporting Document(s ) UNK > 60 <content [facility] styleCode="Bold"> Medical Cent er EGFR </content>80 GFR<content styleCode="Italic s"> (> 60 GFR)</content> ID Date Data Source [facility].[id number] 02/27/2020 01:40:00 PM EDT [facility] Name Value Range Interpretation Description Data Sup porting Code Source(s) Document(s ) Sodium 137-145 <content Saint [Moles/volume] in styleCode="Bold"> Piero phs Serum or Plasma Sodium Medical </content>141 Center [...] s"> (17-59 IU/L)</content> ID Date Data Source Urinalysis.[id number] 02/27/2020 01:28:00 PM EDT [facility] 0 Name Value Range Interpretation Description Data Sup porting Code Source(s) Document(s ) Glucose NEGATIVE <content Saint [Mass/volume] styleCode="Davy Suh in Urine by d">Urine Medical Test strip Glucose Center </content>NEGA TIVE MG/DL<content styleCode="Tammy lics"> (NEGATIVE MG/DL)</conten t> UNK CLEAR <content Saint styleCode="Davy Suh d">Urine Medical Clarity Center </content>CECILIA R <content styleCode="Tammy lics"> (CLEAR )</content> Color of Urine YELLOW <content Saint styleCode="Davy Vikash d">Color, Medical Urine Center </content>YELL OW <content styleCode="Tammy lics"> (YELLOW )</content> Hemoglobin NEGATIVE <content Saint [Presence] in styleCode="Davy [place] Urine by Test d">Urine Blood Medical strip </content>NEGA Center TIVE <content styleCode="Tammy lics"> (NEGATIVE )</content> Specific 1.015-1.02 Above high <content Saint gravity of 5 normal styleCode="Davy [place] Urine by Test d">Urine Medical strip Specific Center [place] </content>>= 1.030 H<content styleCode="Tammy lics"> (1.015-1.025 )</content> UNK NEGATIVE <content Saint styleCode="Davy Vikash d">Urine Medical Bilirubin Center </content>NEGA TIVE <content styleCode="Tammy lics"> (NEGATIVE )</content> Ketones NEGATIVE <content Saint [Mass/volume] styleCode="Davy Vikash in Urine by d">Urine Medical Test strip Ketone Center </content>NEGA TIVE MG/DL<content styleCode="Tammy lics"> (NEGATIVE MG/DL)</conten t> Protein NEGATIVE <content Saint [Mass/volume] styleCode="Davy Vikash in Urine by d">Urine Medical Test strip Protein Center </content>NEGA TIVE MG/DL<content styleCode="Tammy lics"> (NEGATIVE MG/DL)</conten t> Urobilinogen 0.2-1.0 <content Saint [Units/volume] styleCode="Davy Vikash in Urine by d">Urine Medical [...] lics"> (NEGATIVE )</content> ID Date Data Source CHMROUTINECCDA.[id number] 02/27/2020 01:28:00 PM EDT [facility] -0400 Name Value Range Interpretation Description Data Sup porting Code Source(s) Document(s ) Cannabinoids <content Saint [Presence] in styleCode="Davy Suh Urine by Screen d">Cannabinoid Medical method >50 ng/mL s Center </content>NEGA TIVE NG/ML (Reference Range: not available)<br/ > ID Date Data Source [id number] 02/06/2020 01:46:00 AM EDT [facility] Name Value Range Interpretation Code Description Data Mackenzie rce(s) Supporting Document(s ) SARS-COV-2 [facility] RNA RESP Diagnostics QL SHAHIDA+PROBE This lab was ordered by [facility] and report ed by [facility]. ID Date Data Source [id number] 01/20/2020 05:30:00 PM EDT [facility] Name Value Range Interpretation Description Data Sup porting Code Source(s) Document(s ) SARS [facility] coronavirus 2 RNA This lab was ordered by [facility] Ac ct Bill Inter and reported by [facility]. ID Date Data Source Liver 08/01/2019 05:20:00 AM EST [facility] Profile.[id number] Name Value Range Interpretation Description Data Sup [...] s"> (3.5-5.0 G/DL)</content> ID Date Data Source HematologyRou.[id number] 08/01/2019 05:20:00 AM FAIZAN [place] [facility] 0500 Name Value Range Interpretation Description Data Sup porting Code Source(s) Document(s ) Hemoglobin 13.5-17. Below low normal <content Saint [Mass/volume] in 5 styleCode="Bold [facility] Blood ">Hemoglobin Medical </content>13.0 Center G/DL L<content styleCode="Ital ics"> (13.5-17.5 G/DL)</content> Erythrocytes 4.4-5.9 <content Saint [#/volume] in styleCode="Bold [facility] Blood by ">Red Blood Medical Automated count [...] (0-0.1 KCUMM)</content > ID Date Data Source GFR(Creatinine).[id number] 08/01/2019 05:20:00 AM EST [facility] 0-0500 Name Value Range Interpretation Code Description Data Mackenzie rce(s) Supporting Document(s ) UNK > 60 <content [facility] styleCode="Bold"> Medical Cent er EGFR </content>112 GFR<content styleCode="Italic s"> (> 60 GFR)</content> ID Date Data Source CHMROUTINECCDA.[id number] 08/01/2019 05:20:00 AM FAIZAN [place] [facility] -0500 Name Value Range Interpretation Description Data Sup porting Code Source(s) Document(s ) UNK >= 1.0 <content [facility] styleCode="Bold Medical ">AG Ratio Center </content>1.1 <content styleCode="Ital ics"> (>= 1.0 )</content> UNK 4.2-5.8 Above high normal <content [facility] styleCode="Bold Medical ">Hemoglobin Center A1C </content>6.0 % H<content styleCode="Ital ics"> (4.2-5.8 %)</content> UNK 2.3-3.5 <content [facility] styleCode="Bold Medical ">Globulin Center </content>3.1 G/DL<content styleCode="Ital ics"> (2.3-3.5 G/DL)</content> Protein 6.3-8.2 <content [facility] [Mass/volum styleCode="Bold Medical e] in Serum ">Total Protein Center or Plasma </content>6.6 G/DL<content styleCode="Ital ics"> (6.3-8.2 G/DL)</content> ID Date Data Source [facility].[id number] 08/01/2019 05:20:00 AM EST [facility] Name Value Range Interpretation Description Data Sup porting Code Source(s) Document(s ) Sodium 137-145 <content Saint [Moles/volume] in styleCode="Bold"> Piero phs Serum or Plasma Sodium Medical </content>140 Center MEQ/L<content styleCode="Italic s"> (137-145 MEQ/L)</content> UNK 9-20 <content [facility] styleCode="Bold"> Vikash BUN </content>16 Medical MG/DL<content Center styleCode="Italic s"> (9-20 MG/DL)</content> Carbon dioxide, 22-30 <content Saint total styleCode="Bold"> Ivkash [Moles/volume] in Carbon Dioxide Medical Serum or [...] GFR)</content> Alkaline 38-126 <content Saint phosphatase styleCode="Bold"> [facility] [Enzymatic Alkaline Medical activity/volume] Phosphatase (ALP) [...] s"> (3.5-5.0 G/DL)</content> ID Date Data Source Urinalysis.[id number] 07/31/2019 12:13:00 PM EST [facility] 0 Name Value Range Interpretation Description Data Sup porting Code Source(s) Document(s ) Color of Urine YELLOW <content Saint styleCode="Davy Vikash d">Color, Medical Urine Center </content>YELL OW <content [...] by Test d">Urine Medical strip Specific Center [place] </content>1.02 0 <content styleCode="Tammy lics"> (1.015-1.025 )</content> Hemoglobin NEGATIVE <content Saint [Presence] in styleCode="Davy Vikash Urine by Test d">Urine Blood Medical strip [...] )</content> Urobilinogen 0.2-1.0 <content Saint [Units/volume] styleCode="Davy Vikash in Urine by d">Urine Medical Test strip Urobilinogen Center </content>0.2 MG/DL<content styleCode="Tammy lics"> (0.2-1.0 MG/DL)</conten t> Nitrite NEGATIVE <content Saint [Presence] in styleCode="Davy Suh Urine by Test d">Urine Medical strip Nitrite Center </content>NEGA TIVE <content styleCode="Tammy lics"> (NEGATIVE )</content> ID Date Data Source CHMROUTINECCDA.[id number] 07/31/2019 12:13:00 PM EST [facility] -0500 Name Value Range Interpretation Description Data Sup porting Code Source(s) Document(s ) Cannabinoids <content Saint [Presence] in styleCode="Davy Suh Urine by Screen d">Cannabinoid Medical method >50 ng/mL s Center </content>NEGA TIVE NG/ML (Reference Range: not available)<br/ > ID Date Data Source Liver 07/31/2019 11:00:00 AM EST [facility] Profile.[id number] Name Value Range Interpretation Description Data Sup [...] s"> (3.5-5.0 G/DL)</content> ID Date Data Source HematologyRou.[id number] 07/31/2019 11:00:00 AM FAIZAN [place] [facility] 0500 Name Value Range Interpretation Description Data Sup porting Code Source(s) Document(s ) Erythrocytes 4.4-5.9 <content Saint [#/volume] in styleCode="Bold [facility] Blood by ">Red Blood Medical Automated count Cell Count Center </content>5.21 MCUMM<content styleCode="Ital ics"> (4.4-5.9 MCUMM)</content > Hematocrit 41.0-53. <content Saint [Volume 0 styleCode="Bold [facility] Fraction] of ">Hematocrit Medical Blood by </content>43.7 [...] (0.0 KCUMM)</content > ID Date Data Source GFR(Creatinine).[id number] 07/31/2019 11:00:00 AM FAIZAN [facility] 0-0500 Name Value Range Interpretation Code Description Data Mackenzie rce(s) Supporting Document(s ) UNK > 60 <content [facility] styleCode="Bold"> Medical Cent er EGFR </content>112 GFR<content styleCode="Italic s"> (> 60 GFR)</content> ID Date Data Source [id number] 07/31/2019 11:00:00 AM EST [facility] Name Value Range Interpretation Description Data Sup porting Code Source(s) Document(s ) Potassium 3.5-5.3 <content Saint [Moles/volume] in styleCode="Bold"> Piero phs Serum or Plasma Potassium Medical </content>4.1 Center [...] Supporting Document(s ) UNK > 60 <content [facility] styleCode="Bold"> Medical Cent er EGFR </content>81 GFR<content styleCode="Italic s"> (> 60 GFR)</content> ID Date Data Source CHMROUTINECCDA 09/11/2018 03:22:00 PM EDT [facility] Name Value Range Interpretation Description Data Sup porting Code Source(s) Document(s ) UNK 30-110 <content [facility] styleCode="Bold Medical ">Amylase Center </content>49 IU/L<content styleCode="Ital ics"> (30-110 IU/L)</content> Lactate 0.7-2.0 <content [facility] [Mass/volum styleCode="Bold Medical e] in Serum ">Lactic Acid Center or Plasma </content>0.8 MMOLL<content styleCode="Ital ics"> (0.7-2.0 MMOLL)</content > Lipase 23-300 <content [facility] [Enzymatic styleCode="Bold Medical activity/vo ">Lipase Center lume] [...] G/DL)</content> Alkaline 38-126 <content Saint phosphatase styleCode="Bold"> [facility] [Enzymatic Alkaline Medical activity/volume] Phosphatase (ALP) [...] 02:31:00 Daily Smoker completed Daily Smoker S [facility] EDT Center Smoking 02/27/2020 12:40:00 Daily Smoker completed Daily Smoker S [facility] EDT Center Smoking 02/17/2020 02:02:00 Daily Smoker completed Daily Smoker S [facility] EDT Center Smoking 02/17/2020 01:27:00 Daily Smoker completed Daily Smoker S [facility] EDT Center Smoking 02/15/2020 06:09:00 Daily Smoker completed Daily Smoker S [facility] EDT Center Smoking 02/15/2020 06:07:00 Daily Smoker completed Daily Smoker S [facility] EDT Center Smoking 02/07/2020 11:01:00 Daily Smoker completed Daily Smoker S [facility] EDT Center Smoking 02/07/2020 11:00:00 Daily Smoker completed Daily Smoker S [facility] EDT Center Smoking 02/07/2020 10:54:00 Daily Smoker completed Daily Smoker S [facility] EDT Center Smoking 07/31/2019 04:46:00 Daily Smoker completed Daily Smoker S [facility] EST Center Smoking 07/31/2019 03:08:00 Daily Smoker completed Daily Smoker S [facility] EST Center Smoking 07/31/2019 10:00:00 Daily Smoker completed Daily Smoker S [facility] EST Center Smoking 07/31/2019 09:35:00 Daily Smoker completed Daily Smoker S [facility] EST Center Smoking 07/31/2019 09:13:00 Daily Smoker completed Daily Smoker S [facility] EST Center Smoking 03/21/2019 11:53:00 Daily Smoker completed Daily Smoker S [facility] EDT Center Smoking 03/21/2019 10:30:00 Daily Smoker completed Daily Smoker S [facility] EDT Center Smoking 03/21/2019 10:27:00 Daily Smoker completed Daily Smoker S [facility] EDT Center Smoking 02/05/2019 02:38:00 Daily Smoker completed Daily Smoker S [facility] EDT Center Smoking 02/05/2019 02:38:00 Daily Smoker completed Daily Smoker S [facility] EDT Center Smoking 02/05/2019 02:31:00 Daily Smoker completed Daily Smoker S [facility] EDT Center Smoking 09/11/2018 04:25:00 Daily Smoker completed Daily Smoker S [facility] EDT Center Smoking 09/11/2018 02:48:00 Daily Smoker completed Daily Smoker S [facility] EDT Center Smoking 09/11/2018 02:31:00 Daily Smoker completed Daily Smoker S [facility] EDT Center Smoking 09/08/2018 10:55:00 Daily Smoker completed Daily Smoker S [facility] EDT Center Smoking 09/08/2018 09:56:00 Daily Smoker completed Daily Smoker S [facility] EDT Center Smoking 09/08/2018 09:42:00 Daily Smoker completed Daily Smoker S [facility] EDT Center Smoking 06/29/2018 06:42:00 Daily Smoker completed Daily Smoker S [facility] EST Center Smoking 06/29/2018 06:30:00 Daily Smoker completed Daily Smoker S [facility] EST Center Smoking 06/29/2018 06:21:00 Daily Smoker completed Daily Smoker S [facility] EST Center Smoking 06/28/2018 09:15:00 Daily Smoker completed Daily Smoker S [facility] EST Center Smoking 06/28/2018 08:10:00 Daily Smoker completed Daily Smoker S [facility] EST Center Smoking 06/28/2018 08:00:00 Daily Smoker completed Daily Smoker S [facility] EST Center Smoking 06/06/2018 09:56:00 Daily Smoker completed Daily Smoker S [facility] EST Center Smoking 06/06/2018 09:05:00 Daily Smoker completed Daily Smoker S [facility] EST Center Smoking 06/06/2018 08:52:00 Daily Smoker completed Daily Smoker S [facility] EST Center Vital Signs ID Date Data Source UNK Name Value Range Interpretation Code Description Data Source(s) Body weight 80.350539 kg 80.240842 kg [facility] Measured [facility] Body temperature 36.830005 36.328290 [facility] Respiratory rate 18 /min 18 /min [facility] Oxygen saturation 97 % 97 % [facility] in Arterial blood [facility] Center by Pulse oximetry Heart rate 83 /min 83 /min [facility] Body height 172.101808 172.174773 cm [facility] Medical [place] Diastolic blood 85 mm[Hg] 85 mm[Hg] [facility] pressure Medical Center Systolic blood 166 mm[Hg] 166 mm[Hg] [facility] Medical Center Body mass index 26.8 kg/m2 26.8 kg/m2 [facility] (BMI) [Ratio] Medical Trisha [facility] Oxygen saturation 98 % 98 % [facility] Center blood [facility] Center by Pulse oximetry Heart rate 98 /min 98 /min [facility] Diastolic blood 86 mm[Hg] 86 mm[Hg] [facility] pressure Medical Center Systolic blood 137 mm[Hg] 137 mm[Hg] [facility] Center Body temperature 37.811394 37.989349 [facility] Respiratory rate 18 /min 18 /min [facility] Oxygen saturation 97 % 97 % [facility] Arterial blood [facility] by Pulse oximetry Heart rate 107 /min 107 /min [facility] Diastolic blood 100 mm[Hg] 100 mm[Hg] [facility] pressure Medical Center Systolic blood 160 mm[Hg] 160 mm[Hg] [facility] Center Oxygen saturation 96 % 96 % [facility] Center blood [facility] by Pulse oximetry Respiratory rate 16 /min 16 /min [facility] Oxygen saturation 92 % 92 % [facility] by Pulse oximetry Heart rate 97 /min 97 /min [facility] Diastolic blood 75 mm[Hg] 75 mm[Hg] [facility] pressure Medical Center Systolic blood 136 mm[Hg] 136 mm[Hg] [facility] Body weight 68.350802 kg 68.687695 kg [facility] Medical [place] Body temperature 37.696990 37.992677 [facility] Respiratory rate 17 /min 17 /min [facility] Oxygen saturation 98 % 98 % [facility] by Pulse oximetry Heart rate 105 /min 105 /min [facility] Body height 177.341888 177.117149 cm [facility] Medical Center Diastolic blood 83 mm[Hg] 83 mm[Hg] [facility] pressure Medical Center Systolic blood 120 mm[Hg] 120 mm[Hg] [facility] pressure Medical Center Body mass index 21.5 kg/m2 21.5 kg/m2 [facility] Man ephs (BMI) [Ratio] Medical [facility]isha [facility] Body temperature 36.547039 36.744368 [facility] Respiratory rate 17 /min 17 /min [facility] Oxygen saturation 99 % 99 % [facility] Arterial blood Medical Center by Pulse oximetry Heart rate 79 /min 79 /min [facility] Diastolic blood 72 mm[Hg] 72 mm[Hg] [facility] pressure Medical Center Systolic blood 133 mm[Hg] 133 mm[Hg] [facility] Medical [place] Body temperature 36.350301 36.275138 [facility] Respiratory rate 18 /min 18 /min [facility] Oxygen saturation 97 % 97 % [facility] J [facility]phs in Arterial blood [facility] by Pulse oximetry Heart rate 77 /min 77 /min [facility] Diastolic blood 79 mm[Hg] 79 mm[Hg] [facility] [facility] pressure [facility] Systolic blood 165 mm[Hg] 165 mm[Hg] [facility] Medical [place] Body temperature 36.599473 36.280632 [facility] Respiratory rate 20 /min 20 /min [facility] Heart rate 50 /min 50 /min [facility] Diastolic blood 65 mm[Hg] 65 mm[Hg] [facility] pressure Medical Center Systolic blood 133 mm[Hg] 133 mm[Hg] [facility] Center Systolic blood 142 mm[Hg] 142 mm[Hg] [facility] [place] Body temperature 36.073064 36.242424 [facility] Respiratory rate 20 /min 20 /min [facility] Heart rate 53 /min 53 /min [facility] Diastolic blood 79 mm[Hg] 79 mm[Hg] [facility] [place] Body temperature 36.459548 36.025482 [facility] Respiratory rate 20 /min 20 /min [facility] Heart rate 57 /min 57 /min [facility] Diastolic blood 72 mm[Hg] 72 mm[Hg] [facility] pressure Medical Center Systolic blood 132 mm[Hg] 132 mm[Hg] [facility] [place] Body height 172.014470 172.841284 cm [facility] [place] Body weight 74.478888 kg 74.671802 kg [facility] [place] Body temperature 36.597604 36.081579 [facility] Respiratory rate 18 /min 18 /min [facility] Heart rate 67 /min 67 /min [facility] Body height 172.542528 172.702172 cm [facility] [place] Diastolic blood 87 mm[Hg] 87 mm[Hg] [facility] pressure Medical Center Systolic blood 151 mm[Hg] 151 mm[Hg] [facility] Body mass index 25.09 kg/m2 25.09 kg/m2 [facility] (BMI) [Ratio] Medical [address] Body temperature 37.790744 37.612794 [facility] Respiratory rate 17 /min 17 /min [facility] Heart rate 65 /min 65 /min [facility] Diastolic blood 78 mm[Hg] 78 mm[Hg] [facility] pressure Medical [place] Systolic blood 148 mm[Hg] 148 mm[Hg] [facility] Body temperature 37.838473 37.507722 [facility] Respiratory rate 18 /min 18 /min [facility] Heart rate 83 /min 83 /min [facility] Diastolic blood 84 mm[Hg] 84 mm[Hg] [facility] Systolic blood 183 mm[Hg] 183 mm[Hg] [facility] Body weight 84.304078 kg 84.983885 kg [facility] Oxygen saturation 98 % 98 % [facility] Center blood [facility] by Pulse oximetry Body temperature 37.092273 37.886967 [facility] Respiratory rate 18 /min 18 /min [facility] Oxygen saturation 100 % 100 % [facility] Center blood [facility] by Pulse oximetry Heart rate 63 /min 63 /min [facility] Diastolic blood 88 mm[Hg] 88 mm[Hg] [facility] Systolic blood 154 mm[Hg] 154 mm[Hg] [facility] Body temperature 36.910167 36.073756 [facility] Respiratory rate 17 /min 17 /min [facility] Oxygen saturation 100 % 100 % [facility] Center blood [facility] by Pulse oximetry Heart rate 59 /min 59 /min [facility] Diastolic blood 71 mm[Hg] 71 mm[Hg] [facility] Center Systolic blood 161 mm[Hg] 161 mm[Hg] [facility] Body temperature 37.264057 37.912696 [facility] Respiratory rate 20 /min 20 /min [facility] Oxygen saturation 98 % 98 % [facility] Arterial blood Medical Center by Pulse oximetry Heart rate 91 /min 91 /min [facility] Diastolic blood 79 mm[Hg] 79 mm[Hg] [facility] pressure Medical Center Systolic blood 138 mm[Hg] 138 mm[Hg] [facility] Body weight 83.823746 kg 83.494205 kg [facility] Measured [facility] Body temperature 37.641118 37.375855 [facility] Respiratory rate 17 /min 17 /min [facility] Oxygen saturation 95 % 95 % [facility] Ar[facility] blood [facility] Center by Pulse oximetry Heart rate 112 /min 112 /min [facility] Body height 172.109553 [address].23[address] [facility] Diastolic blood 83 mm[Hg] 83 mm[Hg] [facility] pressure Medical Center Systolic blood 150 mm[Hg] 150 mm[Hg] [facility] Center Body mass index 28.1 kg/m2 28.1 kg/m2 [facility] (BMI) [Ratio] Medical [facility] ter Body temperature 36.679154 36.284052 [facility] Respiratory rate 17 /min 17 /min [facility] Oxygen saturation 98 % 98 % [facility] Center blood [facility] Center by Pulse oximetry Heart rate 72 /min 72 /min [facility] Diastolic blood 71 mm[Hg] 71 mm[Hg] [facility] Center Systolic blood 140 mm[Hg] 140 mm[Hg] [facility] Center Body weight 70.726238 kg 70.510462 kg [facility] Me[facility] Body temperature 36.614163 36.683689 [facility] Respiratory rate 16 /min 16 /min [facility] Oxygen saturation 98 % 98 % [facility] Ar[facility] blood [facility] Center by Pulse oximetry Heart rate 78 /min 78 /min [facility] Body height 177.717843 177.6705[address] [facility] Diastolic blood 78 mm[Hg] 78 mm[Hg] [facility] Systolic blood 142 mm[Hg] 142 mm[Hg] [facility] Center Body mass index 22.1 kg/m2 22.1 kg/m2 [facility] (BMI) [Ratio] Medical [facility] Body weight 89.393824 kg 89.664867 kg [facility] Center Body temperature 37.227884 37.321752 [facility] Respiratory rate 18 /min 18 /min [facility] Oxygen saturation 100 % 100 % [facility] Arterial blood Medical Center by Pulse oximetry Heart rate 84 /min 84 /min [facility] Body height 172.106549 172.731456 [facility] Diastolic blood 86 mm[Hg] 86 mm[Hg] [facility] Systolic blood 159 mm[Hg] 159 mm[Hg] [facility] Center Body mass index 30.1 kg/m2 30.1 kg/m2 [facility] (BMI) [Ratio] Medical [facility] Body temperature 36.443423 36.724806 [facility] Respiratory rate 19 /min 19 /min [facility] Oxygen saturation 98 % 98 % [facility] Arter[facility] blood Medical Center by Pulse oximetry Heart rate 85 /min 85 /min [facility] Diastolic blood 75 mm[Hg] 75 mm[Hg] [facility] Systolic blood 134 mm[Hg] 134 mm[Hg] [facility] Center Body temperature 37.188461 37.122263 [facility] Respiratory rate 18 /min 18 /min [facility] Oxygen saturation 96 % 96 % [facility] Center by Pulse oximetry Heart rate 96 /min 96 /min [facility] Diastolic blood 77 mm[Hg] 77 mm[Hg] [facility] Center Systolic blood 133 mm[Hg] 133 mm[Hg] [facility] Center Body weight 85.135534 kg 85.847045 kg [facility] Medical Center Body temperature 37.199274 37.482311 [facility] Respiratory rate 18 /min 18 /min [facility] Oxygen saturation 98 % 98 % [facility] Arterial blood Medical Center by Pulse oximetry Heart rate 92 /min 92 /min [facility] Body height 180.376191 180.2287[address] [facility] Diastolic blood 78 mm[Hg] 78 mm[Hg] [facility] pressure [facility] Systolic blood 154 mm[Hg] 154 mm[Hg] [facility] Body mass index 26.1 kg/m2 26.1 kg/m2 [facility] (BMI) [Ratio] [facility] Body temperature 36.958423 36.361364 [facility] Respiratory rate 18 /min 18 /min [facility] Oxygen saturation 98 % 98 % [facility] Center blood [facility] by Pulse oximetry Heart rate 76 /min 76 /min [facility] Diastolic blood 87 mm[Hg] 87 mm[Hg] [facility] Systolic blood 132 mm[Hg] 132 mm[Hg] [facility] Body temperature 36.368789 36.525767 [facility] Respiratory rate 17 /min 17 /min [facility] Oxygen saturation 98 % 98 % [facility] by Pulse oximetry Heart rate 72 /min 72 /min [facility] Diastolic blood 91 mm[Hg] 91 mm[Hg] [facility] Systolic blood 150 mm[Hg] 150 mm[Hg] [facility] Patient Treatment Plan of Care Planned Activity Planned Date Details Description Data Source (s) Bacitracin 0.5 UNT/MG [facility] Topical Ointment [place] Ketorolac Tromethamine 10 MG [facility] Oral Tablet [place]
[2020-03-17] MEDS: THIAMINE HCL 100 MG TABLET (FP) PO SCH (21:37)
[2020-03-17] MEDS: MELATONIN 5 MG TABLETS PO SCH (21:37)
[2020-03-17 21:59] VITALS: BP 127/67; PULSE 65
[2020-03-18] MEDS: PRENATAL VITAMINS W/ FOLIC ACID TABLET (FP) PO SCH (09:44)
--- NOTE | 2020-03-18 11:10 | PN ---
[facility] Progress Note Note: Pt is a 60 y/o male with a hx of KEISHA- admitted to rehab yesterday from [facility]. [employer] Observer attempted to see pt this morning but unable to speak to pt as new pt encounter. Pt was called many times while in his bed but refused to respond. [employer] went back to pt's room at lunch time and found pt just up sitting on his bed. Pt made told television writer he'll prefer if staff don't keep disturbing his sleep by always coming to check and as pt speaks he's also cursing with "F--ck' words at at staff in every sentence. Pt was redirected and reminded that obscene language is not tolerated on the unit as it negatively impacts treatment. Pt's Counselor, Roxana Tan was made aware to estate planning counselor to patient. PMHx:HTN, HLD, Gout Psych:Denies Vital Signs (72 hours) 03/17/20 03/17/20 03/18/20 17:06 20:37 06:53 Temperature 97.8 F 97.8 F 97.8 F Pulse Rate 85 65 65 Respiratory 14 18 18 Rate Blood Pressure 143/73 127/67 127/67 O2 Sat by Pulse 96 96 Oximetry (%) Alert o x 3 nad but agitated and guarded oob ambulating with steady gait Rehab pt Maintain safety increase po fluids monitor pt's behavior.
[2020-03-18] MEDS: MELATONIN 5 MG TABLETS PO SCH (22:55)
[2020-03-18] MEDS: THIAMINE HCL 100 MG TABLET (FP) PO SCH (22:55)
[2020-03-19] MEDS: PRENATAL VITAMINS W/ FOLIC ACID TABLET (FP) PO SCH (10:53)
--- NOTE | 2020-03-19 11:59 | PN ---
[facility] Progress Note Note: Pt met newspaper writer on the hallway and started screaming and complaining and as newspaper writer was listening to patient, pt stormed off towards his room and talking louding with curses"...F--cking you all. She's not saying anything ". [employer]ored [employer] Guard [employer] Driver called pt as he walks away to find out how we can be of help he continued to curse out and went into his room. Pt is unable to speak positively to staff without using abrasive language and agitations. Pt states staff is disturbing his sleep by constant checks. Pt appears unable to be redirected despite all efforts. Pt's behavior was reported to counselor, Ms Roxana Ott yesterday and she spoke to patient who continue to exhibit same pattern. Vital Signs - 24 hr 03/18/20 03/18/20 03/19/20 13:40 20:43 07:00 O2 Sat by Pulse 95 95 95 Oximetry (%) Counselor,Fifi to follow up with patient.
--- NOTE | 2020-03-19 13:19 | DS ---
[facility] Rehab Discharge Summary - [facility] Rehab Discharge Summary Admission Date: 03/17/20 Discharge Date: 03/19/20 - History Present History: Alcohol dependence, Opioid dependence, PCP dependence Pertinent Past History: HTN(no meds) HLD(no med) GOUTY Athropathy - Discharge Physical Exam Vital Signs: Vital Signs Temperature 97.8 F 03/18/20 06:53 Pulse Rate 65 03/18/20 06:53 Respiratory Rate 18 03/18/20 06:53 Blood Pressure 127/67 03/18/20 06:53 O2 Sat by Pulse Oximetry (%) 95 03/19/20 07:00 Alert o x 2 nad oob ambulating with steady gait Active FROM, all limbs Pertinent Admission Physical Exam Findings: Laboratory Tests 03/17/20 15:25 SARS-CoV-2 (PCR) Negative - Treatment Discharge Condition: Discharge condition good Hospital Course: Pt is a 60 y/o male with a hx of KEISHA admitted to rehab and declined further treatment stating to nurse Yahaira Benson "I'm leaving". Pt was encouraged to speak to his counselor but responded "if i'm still here'. Pt left at 12:50 p.m soon after he finished lunch. Pt declined to meet with counselling staff before walking off the unit. - Medication Discharge Medications: Ambulatory Orders Naloxone HCl [Narcan] 4 mg NS ASDIR PRN #1 spray 01/22/20 - Medication-Assisted Treatment (MAT) Medication-Assisted Treatment (MAT): No - Discharge Instructions Diet, activity, other medical instructions: Diet:Regular Activity:oob ad jigar Other medical instructions: - Diagnosis (1) Alcohol use disorder Current Visit: Yes Status: Chronic (2) Nicotine dependence Current Visit: Yes Status: Chronic Qualifiers: Nicotine product type: cigarettes Substance use status: uncomplicated Qualified Code(s): F17.210 - Nicotine dependence, cigarettes, uncomplicated (3) Opioid use disorder Current Visit: Yes Status: Chronic (4) Gouty arthropathy Current Visit: Yes Status: Chronic (5) Hypertension Current Visit: Yes Status: Chronic Qualifiers: Hypertension type: essential hypertension Qualified Code(s): I10 - Essential (primary) hypertension - Follow-up Referral Minutes to complete discharge: 15 - AMA Did Patient Leave Against Medical Advice: Yes Additional Comments: Pt was previously in detox treatment here from 03/05/20 to 03/10/20 then referred [facility] from 03/10/20 to 03/12/20. Pt then returned this time to treatment on 03/17/20 and signed out AMA on 03/19/20.
== END 2020-03-19 12:40 | disposition left against medical advice (07) | DRG 770 ==
LOC: YASAS 13:53 → Y5N 19:36
PROVIDERS: ADMIT Allergy & Immunology; ATTEND Allergy & Immunology
PROC: HZ42ZZZ Group Counseling for Substance Abuse Treatment, Cognitive-Behavioral (ICD-10-PCS; principal; 2020-03-17)
DX: F10.20 Alcohol dependence, uncomplicated (principal); F11.20 Opioid dependence, uncomplicated; F16.20 Hallucinogen dependence, uncomplicated; F17.210 Nicotine dependence, cigarettes, uncomplicated; I10 Essential (primary) hypertension; E78.5 Hyperlipidemia, unspecified; M10.9 Gout, unspecified
CPT/HCPCS: U0003

== ENCOUNTER 2020-09-07 10:10 | Inpatient (IN) | payer OTHER ==
[2020-09-07 13:51] VITALS: BMI 24.7
[2020-09-07] MEDS ORDERED: hydrOXYzine PAMOATE 25 MG CAPSULE (FP) PO PRN (16:45)
[2020-09-07] MEDS ORDERED: MENTHOL/PHENOL 1 EACH UD MM PRN (16:45)
[2020-09-07] MEDS ORDERED: MAG HYDROX/AL HYDROX/SIMETH 30 ML UNIT-DOSE CUP PO PRN (16:45)
[2020-09-07] MEDS ORDERED: MAGNESIUM HYDROX 2400MG/30ML ORAL SUSPENSION 30 ML CUP PO PRN (16:45)
[2020-09-07] MEDS ORDERED: METHOCARBAMOL 500 MG TABLET PO PRN (16:45)
[2020-09-07] MEDS ORDERED: MAGNESIUM CITRATE 300 ML BOTTLE PO PRN (16:45)
[2020-09-07] MEDS ORDERED: ONDANSETRON *ODT* 4 MG TABLET SL PRN (16:45)
[2020-09-07] MEDS ORDERED: BISMUTH SUBSALICYLATE 524 MG/30 ML UD PO PRN (16:45)
[2020-09-07] MEDS ORDERED: NICOTINE POLACRILEX 2 MG GUM BUC PRN (16:45)
[2020-09-07] MEDS ORDERED: IBUPROFEN 400 MG TABLET (FP) PO PRN (16:45)
[2020-09-07] MEDS ORDERED: ACETAMINOPHEN 325 MG TABLET (FP) PO PRN ×2 (16:45)
[2020-09-07] MEDS ORDERED: cloNIDine HCL 0.1 MG TABLET PO PRN (16:48)
[2020-09-07] MEDS ORDERED: METHADONE HCL 5 MG TABLET (FOR DETOX USE ONLY) PO ONE (17:30)
[2020-09-07] MEDS: THIAMINE HCL 100 MG TABLET (FP) PO SCH (22:46)
[2020-09-07] MEDS: MELATONIN 5 MG TABLETS PO SCH (22:46)
[2020-09-08] MEDS ORDERED: METHADONE HCL 10 MG TABLET (FOR DETOX USE ONLY) PO ONE (10:00)
[2020-09-08 12:07] LABS: HEMATOCRIT 36.8 % (35.4-49); HEMOGLOBIN 11.7 GM/dL (11.7-16.9); MCH 26.3 pg (25.7-33.7); MCHC 31.9 g/dl (32.0-35.9); MEAN CELL VOLUME 82.5 fl (80-96); MEAN PLT VOLUME 7.6 fl (7.5-11.1); PLATELET COUNT 232 K/MM3 (134-434); RBC 4.46 M/mm3 (4.00-5.60); RDW 15.7 % (11.9-15.9); WHITE BLOOD COUNT 7.5 K/mm3 (4.0-10.0)
[2020-09-08 12:26] LABS: POTASSIUM 4.4 mmol/L (3.5-5.1)
[2020-09-08 12:34] LABS: BLOOD UREA NITROGEN 17.9 mg/dL (7-18)
[2020-09-08 12:35] LABS: BILIRUBIN,TOTAL 0.2 mg/dL (0.2-1); TOT PROT 5.9 g/dl (6.4-8.2)
[2020-09-08 12:36] LABS: CALCIUM 8.8 mg/dL (8.5-10.1)
[2020-09-08 12:37] LABS: CREATININE 0.9 mg/dL (0.55-1.3)
[2020-09-08] MEDS: PRENATAL VITAMINS W/ FOLIC ACID TABLET (FP) PO SCH (13:57)
[2020-09-08] MEDS: MELATONIN 5 MG TABLETS PO SCH (22:37)
[2020-09-08] MEDS: THIAMINE HCL 100 MG TABLET (FP) PO SCH (22:37)
[2020-09-09 09:23] VITALS: BP 136/75; PULSE 77; TEMP 97.3
[2020-09-09] MEDS ORDERED: METHADONE HCL 5 MG TABLET (FOR DETOX USE ONLY) PO ONE (10:00)
[2020-09-09] MEDS: PRENATAL VITAMINS W/ FOLIC ACID TABLET (FP) PO SCH (10:47)
== END 2020-09-09 10:03 | disposition home or self-care (01) | DRG 773 ==
LOC: YASAS 10:10 → Y3N 17:08
PROVIDERS: ADMIT Allergy & Immunology; ATTEND Allergy & Immunology
PROC: HZ2ZZZZ Detoxification Services for Substance Abuse Treatment (ICD-10-PCS; principal; 2020-09-07)
DX: F11.23 Opioid dependence with withdrawal (principal); F10.20 Alcohol dependence, uncomplicated; F16.20 Hallucinogen dependence, uncomplicated; F17.210 Nicotine dependence, cigarettes, uncomplicated; F19.282 Other psychoactive substance dependence with psychoactive substance-induced sleep disorder; F19.24 Other psychoactive substance dependence with psychoactive substance-induced mood disorder; F31.9 Bipolar disorder, unspecified; F39 Unspecified mood [affective] disorder; F51.05 Insomnia due to other mental disorder; F42.4 Excoriation (skin-picking) disorder; I10 Essential (primary) hypertension; M1A.9XX0 Chronic gout, unspecified, without tophus (tophi)
CPT/HCPCS: 36415; 80053; 85027; 86780; C9803; U0003

== ENCOUNTER 2020-10-10 08:26 | Inpatient (IN) | payer OTHER ==
[2020-10-10] MEDS ORDERED: ACETAMINOPHEN 325 MG TABLET (FP) PO PRN ×2 (10:10)
[2020-10-10] MEDS ORDERED: cloNIDine HCL 0.1 MG TABLET PO PRN (10:10)
[2020-10-10] MEDS ORDERED: BISMUTH SUBSALICYLATE 524 MG/30 ML UD PO PRN (10:10)
[2020-10-10] MEDS ORDERED: MAGNESIUM HYDROX 2400MG/30ML ORAL SUSPENSION 30 ML CUP PO PRN (10:10)
[2020-10-10] MEDS ORDERED: MAGNESIUM CITRATE 300 ML BOTTLE PO PRN (10:10)
[2020-10-10] MEDS ORDERED: MAG HYDROX/AL HYDROX/SIMETH 30 ML UNIT-DOSE CUP PO PRN (10:10)
[2020-10-10] MEDS ORDERED: METHOCARBAMOL 500 MG TABLET PO PRN (10:10)
[2020-10-10] MEDS ORDERED: MENTHOL/PHENOL 1 EACH UD MM PRN (10:10)
[2020-10-10] MEDS ORDERED: NICOTINE POLACRILEX 2 MG GUM BUC PRN (10:10)
[2020-10-10] MEDS ORDERED: IBUPROFEN 400 MG TABLET (FP) PO PRN (10:10)
[2020-10-10] MEDS ORDERED: METHADONE HCL 10 MG TABLET (FOR DETOX USE ONLY) PO ONE (10:30)
[2020-10-10 10:41] VITALS: BMI 23.7
[2020-10-10] MEDS: MELATONIN 5 MG TABLETS PO SCH (22:29)
[2020-10-10] MEDS: THIAMINE HCL 100 MG TABLET (FP) PO SCH (22:29)
[2020-10-11] MEDS ORDERED: METHADONE HCL 5 MG TABLET (FOR DETOX USE ONLY) ONE (09:26)
[2020-10-11] MEDS ORDERED: METHADONE HCL 10 MG TABLET (FOR DETOX USE ONLY) ONE (09:26)
[2020-10-11] MEDS ORDERED: METHADONE (DETOX) 20 MG, METHADONE (DETOX) 5 MG PO ONE (10:00)
[2020-10-11] MEDS: PRENATAL VITAMINS W/ FOLIC ACID TABLET (FP) PO SCH (10:34)
[2020-10-11 10:35] LABS: HEMATOCRIT 39.3 % (35.4-49); HEMOGLOBIN 12.7 GM/dL (11.7-16.9); MCHC 32.2 g/dl (32.0-35.9); MEAN CELL VOLUME 83.9 fl (80-96); MEAN PLT VOLUME 7.7 fl (7.5-11.1); PLATELET COUNT 233 K/MM3 (134-434); RBC 4.69 M/mm3 (4.00-5.60); WHITE BLOOD COUNT 7.9 K/mm3 (4.0-10.0)
[2020-10-11 10:37] LABS: ALBUMIN 2.8 g/dl (3.4-5.0); BLOOD UREA NITROGEN 17.1 mg/dL (7-18)
[2020-10-11 10:38] LABS: CALCIUM 8.2 mg/dL (8.5-10.1)
[2020-10-11] MEDS: NICOTINE 14 MG/24 HOURS TOPICAL PATCH TD SCH (10:38)
[2020-10-11 10:40] LABS: CREATININE 0.9 mg/dL (0.55-1.3)
[2020-10-11 10:41] LABS: BILIRUBIN,TOTAL 0.2 mg/dL (0.2-1); TOT PROT 5.8 g/dl (6.4-8.2)
[2020-10-11] MEDS: MELATONIN 5 MG TABLETS PO SCH (22:43)
[2020-10-11] MEDS: THIAMINE HCL 100 MG TABLET (FP) PO SCH (22:43)
[2020-10-12] MEDS ORDERED: METHADONE HCL 10 MG TABLET (FOR DETOX USE ONLY) PO ONE (10:00)
[2020-10-12] MEDS: PRENATAL VITAMINS W/ FOLIC ACID TABLET (FP) PO SCH (10:32)
[2020-10-12] MEDS: NICOTINE 14 MG/24 HOURS TOPICAL PATCH TD SCH (10:34)
[2020-10-12] MEDS: THIAMINE HCL 100 MG TABLET (FP) PO SCH (23:31)
[2020-10-12] MEDS: MELATONIN 5 MG TABLETS PO SCH (23:31)
[2020-10-13] MEDS ORDERED: METHADONE HCL 5 MG TABLET (FOR DETOX USE ONLY) ONE (09:22)
[2020-10-13] MEDS ORDERED: METHADONE HCL 10 MG TABLET (FOR DETOX USE ONLY) ONE (09:22)
[2020-10-13] MEDS ORDERED: METHADONE (DETOX) 10 MG, METHADONE (DETOX) 5 MG PO ONE (10:00)
[2020-10-13] MEDS: PRENATAL VITAMINS W/ FOLIC ACID TABLET (FP) PO SCH (10:33)
[2020-10-13] MEDS: NICOTINE 14 MG/24 HOURS TOPICAL PATCH TD SCH (10:36)
[2020-10-13] MEDS: THIAMINE HCL 100 MG TABLET (FP) PO SCH (23:00)
[2020-10-13] MEDS: MELATONIN 5 MG TABLETS PO SCH (23:00)
[2020-10-14 06:06] LABS: SARS-CoV-2 NAA Not Detected (Not Detected)
[2020-10-14] MEDS ORDERED: METHADONE HCL 10 MG TABLET (FOR DETOX USE ONLY) PO ONE (10:00)
[2020-10-14] MEDS: PRENATAL VITAMINS W/ FOLIC ACID TABLET (FP) PO SCH (10:33)
[2020-10-14] MEDS: NICOTINE 14 MG/24 HOURS TOPICAL PATCH TD SCH (10:34)
[2020-10-14] MEDS: MELATONIN 5 MG TABLETS PO SCH (22:51)
[2020-10-14] MEDS: THIAMINE HCL 100 MG TABLET (FP) PO SCH (22:51)
[2020-10-15] MEDS ORDERED: METHADONE HCL 5 MG TABLET (FOR DETOX USE ONLY) PO ONE (06:00)
[2020-10-15 09:12] VITALS: BP 124/65; PULSE 68; TEMP 97.1
[2020-10-15] MEDS: PRENATAL VITAMINS W/ FOLIC ACID TABLET (FP) PO SCH (09:59)
[2020-10-15] MEDS: NICOTINE 14 MG/24 HOURS TOPICAL PATCH TD SCH (09:59)
== END 2020-10-15 11:45 | disposition other institution (70) | DRG 773 ==
LOC: YASAS 08:26 → Y3N 11:38
PROVIDERS: ADMIT Allergy & Immunology; ATTEND Allergy & Immunology
PROC: HZ2ZZZZ Detoxification Services for Substance Abuse Treatment (ICD-10-PCS; principal; 2020-10-10)
DX: F11.23 Opioid dependence with withdrawal (principal); F10.10 Alcohol abuse, uncomplicated; F16.20 Hallucinogen dependence, uncomplicated; F17.210 Nicotine dependence, cigarettes, uncomplicated; F31.9 Bipolar disorder, unspecified; F19.282 Other psychoactive substance dependence with psychoactive substance-induced sleep disorder; F19.24 Other psychoactive substance dependence with psychoactive substance-induced mood disorder; F51.05 Insomnia due to other mental disorder; F42.4 Excoriation (skin-picking) disorder; F39 Unspecified mood [affective] disorder; I10 Essential (primary) hypertension; M10.9 Gout, unspecified; M25.561 Pain in right knee; M25.562 Pain in left knee; G89.29 Other chronic pain
CPT/HCPCS: 36415; 80053; 82962; 85027; 86780; C9803; U0003; U0005

== ENCOUNTER 2020-10-15 11:42 | Inpatient (IN) | payer OTHER ==
[2020-10-15] MEDS ORDERED: MAGNESIUM CITRATE 300 ML BOTTLE PO PRN (13:40)
[2020-10-15] MEDS ORDERED: guaiFENesin 200 MG/10 ML 10 ML UNIT-DOSE CUPS PO PRN (13:40)
[2020-10-15] MEDS ORDERED: MAG HYDROX/AL HYDROX/SIMETH 30 ML UNIT-DOSE CUP PO PRN (13:40)
[2020-10-15] MEDS ORDERED: NICOTINE POLACRILEX 2 MG GUM BUC PRN (13:40)
[2020-10-15] MEDS ORDERED: MENTHOL/PHENOL 1 EACH UD MM PRN (13:40)
[2020-10-15] MEDS ORDERED: ACETAMINOPHEN 325 MG TABLET (FP) PO PRN (13:40)
[2020-10-15] MEDS ORDERED: hydrOXYzine PAMOATE 25 MG CAPSULE (FP) PO PRN (13:40)
[2020-10-15] MEDS ORDERED: LOPERAMIDE HCL 2 MG CAPSULE PO PRN (13:40)
[2020-10-15] MEDS ORDERED: MAGNESIUM HYDROX 2400MG/30ML ORAL SUSPENSION 30 ML CUP PO PRN (13:40)
[2020-10-15] MEDS ORDERED: IBUPROFEN 400 MG TABLET (FP) PO PRN (13:40)
[2020-10-15] MEDS ORDERED: P-EPHED 60MG/TRIPROLIDI 2.5MG TABLET PO PRN (13:40)
[2020-10-15] MEDS: METHOCARBAMOL 500 MG TABLET PO SCH ×3 (14:40→21:32)
[2020-10-15] MEDS: MELATONIN 5 MG TABLETS PO SCH (21:32)
[2020-10-15] MEDS: THIAMINE HCL 100 MG TABLET (FP) PO SCH (21:32)
[2020-10-16] MEDS: METHOCARBAMOL 500 MG TABLET PO SCH ×4 (10:06→21:23)
[2020-10-16] MEDS: NICOTINE 7 MG/24 HOURS TOPICAL PATCH TD SCH (10:06)
[2020-10-16] MEDS: PRENATAL VITAMINS W/ FOLIC ACID TABLET (FP) PO SCH (10:06)
[2020-10-16] MEDS: MELATONIN 5 MG TABLETS PO SCH (21:23)
[2020-10-16] MEDS: THIAMINE HCL 100 MG TABLET (FP) PO SCH (21:23)
[2020-10-17] MEDS: METHOCARBAMOL 500 MG TABLET PO SCH ×4 (10:15→21:18)
[2020-10-17] MEDS: PRENATAL VITAMINS W/ FOLIC ACID TABLET (FP) PO SCH (10:15)
[2020-10-17] MEDS: NICOTINE 7 MG/24 HOURS TOPICAL PATCH TD SCH (10:15)
[2020-10-17] MEDS: MELATONIN 5 MG TABLETS PO SCH (21:18)
[2020-10-17] MEDS: THIAMINE HCL 100 MG TABLET (FP) PO SCH (21:18)
[2020-10-18 07:05] VITALS: PULSE 66
[2020-10-18 07:06] VITALS: BP 136/78; TEMP 96.9
[2020-10-18] MEDS: PRENATAL VITAMINS W/ FOLIC ACID TABLET (FP) PO SCH (10:38)
[2020-10-18] MEDS: NICOTINE 7 MG/24 HOURS TOPICAL PATCH TD SCH (10:38)
[2020-10-18] MEDS: METHOCARBAMOL 500 MG TABLET PO SCH ×4 (10:39→21:14)
[2020-10-18] MEDS: THIAMINE HCL 100 MG TABLET (FP) PO SCH (21:13)
[2020-10-18] MEDS: MELATONIN 5 MG TABLETS PO SCH (21:13)
[2020-10-20 10:07] LABS: SARS-CoV-2 NAA Not Detected (Not Detected)
== END 2020-10-19 09:20 | disposition home or self-care (01) | DRG 772 ==
LOC: YASAS 11:42 → Y3E 11:43
PROVIDERS: ADMIT Allergy & Immunology; ATTEND Allergy & Immunology
PROC: HZ42ZZZ Group Counseling for Substance Abuse Treatment, Cognitive-Behavioral (ICD-10-PCS; principal; 2020-10-15)
DX: F11.20 Opioid dependence, uncomplicated (principal); F16.20 Hallucinogen dependence, uncomplicated; F17.210 Nicotine dependence, cigarettes, uncomplicated; F42.4 Excoriation (skin-picking) disorder; F39 Unspecified mood [affective] disorder; I10 Essential (primary) hypertension; M25.561 Pain in right knee; M25.562 Pain in left knee; M10.9 Gout, unspecified
CPT/HCPCS: C9803; U0003; U0005

== ENCOUNTER 2020-10-27 06:49 | Emergency (ER) | payer OTHER ==
[2020-10-27 07:22] VITALS: BP 134/74; PULSE 84; TEMP 98.8; BMI 28.1
== END 2020-10-27 08:10 | disposition left against medical advice (07) ==
LOC: JER 06:49
DX: F10.129 Alcohol abuse with intoxication, unspecified (principal)
CPT/HCPCS: 99281-25

== ENCOUNTER 2020-11-04 14:09 | Inpatient (IN) | payer OTHER ==
[2020-11-04 15:31] VITALS: BMI 25.8
[2020-11-04] MEDS ORDERED: BISMUTH SUBSALICYLATE 524 MG/30 ML UD PO PRN (19:02)
[2020-11-04] MEDS ORDERED: MAGNESIUM CITRATE 300 ML BOTTLE PO PRN (19:02)
[2020-11-04] MEDS ORDERED: MAGNESIUM HYDROX 2400MG/30ML ORAL SUSPENSION 30 ML CUP PO PRN (19:02)
[2020-11-04] MEDS ORDERED: METHOCARBAMOL 500 MG TABLET PO PRN (19:02)
[2020-11-04] MEDS ORDERED: METHADONE HCL 10 MG TABLET (FOR DETOX USE ONLY) PO ONE (19:02)
[2020-11-04] MEDS ORDERED: ONDANSETRON *ODT* 4 MG TABLET SL PRN (19:02)
[2020-11-04] MEDS ORDERED: cloNIDine HCL 0.1 MG TABLET PO PRN (19:02)
[2020-11-04] MEDS ORDERED: chlordiazePOXIDE HCL 25 MG CAPSULE PO PRN (19:02)
[2020-11-04] MEDS ORDERED: MENTHOL/PHENOL 1 EACH UD MM PRN (19:02)
[2020-11-04] MEDS ORDERED: IBUPROFEN 400 MG TABLET (FP) PO PRN (19:02)
[2020-11-04] MEDS ORDERED: ACETAMINOPHEN 325 MG TABLET (FP) PO PRN ×2 (19:02)
[2020-11-04] MEDS ORDERED: MAG HYDROX/AL HYDROX/SIMETH 30 ML UNIT-DOSE CUP PO PRN (19:02)
[2020-11-04] MEDS ORDERED: INDOMETHACIN 50 MG CAPSULE PO SCH (22:00)
[2020-11-04] MEDS: hydrOXYzine PAMOATE 25 MG CAPSULE (FP) PO SCH (23:34)
[2020-11-04] MEDS: THIAMINE HCL 100 MG TABLET (FP) PO SCH (23:34)
[2020-11-04] MEDS: chlordiazePOXIDE HCL 25 MG CAPSULE PO SCH (23:34)
[2020-11-04] MEDS: MELATONIN 5 MG TABLETS PO SCH (23:35)
[2020-11-05] MEDS: hydrOXYzine PAMOATE 25 MG CAPSULE (FP) PO SCH ×2 (05:25→13:29)
[2020-11-05] MEDS: chlordiazePOXIDE HCL 25 MG CAPSULE PO SCH ×4 (05:25→23:41)
[2020-11-05] MEDS ORDERED: METHADONE HCL 10 MG TABLET (FOR DETOX USE ONLY) ONE (09:12)
[2020-11-05] MEDS ORDERED: METHADONE HCL 5 MG TABLET (FOR DETOX USE ONLY) ONE (09:13)
[2020-11-05] MEDS ORDERED: METHADONE (DETOX) 20 MG, METHADONE (DETOX) 5 MG PO ONE (10:00)
[2020-11-05] MEDS ORDERED: hydrOXYzine PAMOATE 25 MG CAPSULE (FP) PO PRN (10:26)
[2020-11-05 10:35] LABS: MCH 27.1 pg (25.7-33.7); MCHC 32.4 g/dl (32.0-35.9); MEAN CELL VOLUME 83.5 fl (80-96); MEAN PLT VOLUME 7.6 fl (7.5-11.1); PLATELET COUNT 257 K/MM3 (134-434); RBC 4.79 M/mm3 (4.00-5.60); RDW 14.7 % (11.9-15.9); WHITE BLOOD COUNT 7.3 K/mm3 (4.0-10.0)
[2020-11-05 10:37] LABS: ALBUMIN 3.2 g/dl (3.4-5.0); BLOOD UREA NITROGEN 20.1 mg/dL (7-18)
[2020-11-05 10:41] LABS: BILIRUBIN,TOTAL 0.4 mg/dL (0.2-1); TOT PROT 6.8 g/dl (6.4-8.2)
[2020-11-05] MEDS: INDOMETHACIN 25 MG CAPSULE PO SCH ×2 (12:52→23:40)
[2020-11-05] MEDS: PRENATAL VITAMINS W/ FOLIC ACID TABLET (FP) PO SCH (12:52)
[2020-11-05] MEDS: MELATONIN 5 MG TABLETS PO SCH (23:40)
[2020-11-05] MEDS: THIAMINE HCL 100 MG TABLET (FP) PO SCH (23:40)
[2020-11-06] MEDS: chlordiazePOXIDE HCL 25 MG CAPSULE PO SCH ×4 (05:31→23:22)
[2020-11-06] MEDS ORDERED: METHADONE HCL 10 MG TABLET (FOR DETOX USE ONLY) PO ONE (10:00)
[2020-11-06] MEDS: PRENATAL VITAMINS W/ FOLIC ACID TABLET (FP) PO SCH (11:08)
[2020-11-06] MEDS: INDOMETHACIN 25 MG CAPSULE PO SCH ×2 (11:08→23:22)
[2020-11-06] MEDS: MELATONIN 5 MG TABLETS PO SCH (23:22)
[2020-11-06] MEDS: THIAMINE HCL 100 MG TABLET (FP) PO SCH (23:22)
[2020-11-07] MEDS ORDERED: chlordiazePOXIDE HCL 10 MG CAPSULE PO PRN
[2020-11-07] MEDS: chlordiazePOXIDE HCL 10 MG CAPSULE PO SCH ×4 (06:21→22:49)
[2020-11-07] MEDS ORDERED: METHADONE HCL 10 MG TABLET (FOR DETOX USE ONLY) ONE (08:47)
[2020-11-07] MEDS ORDERED: METHADONE HCL 5 MG TABLET (FOR DETOX USE ONLY) ONE (08:47)
[2020-11-07] MEDS ORDERED: METHADONE (DETOX) 10 MG, METHADONE (DETOX) 5 MG PO ONE (10:00)
[2020-11-07] MEDS: PRENATAL VITAMINS W/ FOLIC ACID TABLET (FP) PO SCH (10:36)
[2020-11-07] MEDS: INDOMETHACIN 25 MG CAPSULE PO SCH ×2 (10:36→22:48)
[2020-11-07 14:09] LABS: SARS-CoV-2 NAA Not Detected (Not Detected)
[2020-11-07] MEDS: MELATONIN 5 MG TABLETS PO SCH (22:48)
[2020-11-07] MEDS: THIAMINE HCL 100 MG TABLET (FP) PO SCH (22:48)
[2020-11-08] MEDS: chlordiazePOXIDE HCL 10 MG CAPSULE PO SCH ×2 (06:58→18:41)
[2020-11-08] MEDS ORDERED: METHADONE HCL 10 MG TABLET (FOR DETOX USE ONLY) PO ONE (10:00)
[2020-11-08] MEDS: INDOMETHACIN 25 MG CAPSULE PO SCH ×2 (11:36→23:19)
[2020-11-08] MEDS: PRENATAL VITAMINS W/ FOLIC ACID TABLET (FP) PO SCH (11:36)
[2020-11-08 17:26] VITALS: TEMP 97.1
[2020-11-08 21:29] VITALS: BP 115/68; PULSE 63
[2020-11-08] MEDS: THIAMINE HCL 100 MG TABLET (FP) PO SCH (23:19)
[2020-11-08] MEDS: MELATONIN 5 MG TABLETS PO SCH (23:19)
[2020-11-09] MEDS ORDERED: chlordiazePOXIDE HCL 10 MG CAPSULE PO ONE (05:00)
[2020-11-09] MEDS ORDERED: METHADONE HCL 5 MG TABLET (FOR DETOX USE ONLY) PO ONE (06:00)
== END 2020-11-09 08:25 | disposition home or self-care (01) | DRG 773 ==
LOC: YASAS 14:09 → Y3N 19:24
PROVIDERS: ADMIT Allergy & Immunology; ATTEND Allergy & Immunology
PROC: HZ2ZZZZ Detoxification Services for Substance Abuse Treatment (ICD-10-PCS; principal; 2020-11-04)
DX: F11.23 Opioid dependence with withdrawal (principal); F10.230 Alcohol dependence with withdrawal, uncomplicated; F16.20 Hallucinogen dependence, uncomplicated; F19.282 Other psychoactive substance dependence with psychoactive substance-induced sleep disorder; F19.24 Other psychoactive substance dependence with psychoactive substance-induced mood disorder; F31.9 Bipolar disorder, unspecified; F39 Unspecified mood [affective] disorder; F32.9 Major depressive disorder, single episode, unspecified; F42.4 Excoriation (skin-picking) disorder; F51.05 Insomnia due to other mental disorder; M25.561 Pain in right knee; M25.562 Pain in left knee; G89.29 Other chronic pain; I10 Essential (primary) hypertension; M10.9 Gout, unspecified; R60.0 Localized edema; Z59.0 Homelessness; Z56.0 Unemployment, unspecified
CPT/HCPCS: 36415; 80053; 85027; 86780; 93005; 93010; C9803; J0735; U0003; U0005

== ENCOUNTER 2021-01-07 15:08 | Inpatient (IN) | payer OTHER ==
[2021-01-07 18:06] VITALS: BMI 25.9
[2021-01-07] MEDS ORDERED: ACETAMINOPHEN 325 MG TABLET (FP) PO PRN ×2 (19:08)
[2021-01-07] MEDS ORDERED: IBUPROFEN 400 MG TABLET (FP) PO PRN (19:08)
[2021-01-07] MEDS ORDERED: MAGNESIUM CITRATE 300 ML BOTTLE PO PRN (19:08)
[2021-01-07] MEDS ORDERED: methaDONE HCL 10 MG TABLET (FOR DETOX USE ONLY) PO ONE (19:08)
[2021-01-07] MEDS ORDERED: cloNIDine HCL 0.1 MG TABLET PO PRN (19:08)
[2021-01-07] MEDS ORDERED: NICOTINE POLACRILEX 2 MG GUM BUC PRN (19:08)
[2021-01-07] MEDS ORDERED: METHOCARBAMOL 500 MG TABLET PO PRN (19:08)
[2021-01-07] MEDS ORDERED: BISMUTH SUBSALICYLATE 524 MG/30 ML PO PRN (19:08)
[2021-01-07] MEDS ORDERED: MAGNESIUM HYDROX 2400MG/30ML ORAL SUSPENSION 30 ML CUP PO PRN (19:08)
[2021-01-07] MEDS ORDERED: ONDANSETRON *ODT* 4 MG TABLET SL PRN (19:08)
[2021-01-07] MEDS ORDERED: MAG HYDROX/AL HYDROX/SIMETH 30 ML UNIT-DOSE CUP PO PRN (19:08)
[2021-01-07] MEDS ORDERED: MENTHOL/PHENOL 1 EACH UD MM PRN (19:08)
[2021-01-07] MEDS ORDERED: NALOXONE (NARCAN) HCL 4 MG/0.1 ML SPRAY NS PRN (19:11)
[2021-01-07] MEDS ORDERED: methaDONE HCL 10 MG TABLET (FOR DETOX USE ONLY) ONE (21:52)
[2021-01-07] MEDS ORDERED: hydrOXYzine PAMOATE 25 MG CAPSULE (FP) PO ONE (21:53)
[2021-01-07] MEDS: hydrOXYzine PAMOATE 25 MG CAPSULE (FP) PO SCH (21:57)
[2021-01-07] MEDS: MELATONIN 5 MG TABLETS PO SCH (21:57)
[2021-01-07] MEDS: THIAMINE HCL 100 MG TABLET (FP) PO SCH (21:57)
[2021-01-08] MEDS ORDERED: hydrOXYzine PAMOATE 25 MG CAPSULE (FP) PO ONE (05:58)
[2021-01-08] MEDS: hydrOXYzine PAMOATE 25 MG CAPSULE (FP) PO SCH ×4 (06:34→22:56)
[2021-01-08 10:10] LABS: HEMATOCRIT 40.3 % (35.4-49); HEMOGLOBIN 12.9 GM/dL (11.7-16.9); MCH 26.5 pg (25.7-33.7); MEAN CELL VOLUME 82.9 fl (80-96); MEAN PLT VOLUME 7.6 fl (7.5-11.1); PLATELET COUNT 202 10^3/uL (134-434); RBC 4.87 M/mm3 (4.00-5.60); RDW 15.7 % (11.9-15.9); WHITE BLOOD COUNT 7.1 K/mm3 (4.0-10.0)
[2021-01-08 10:15] LABS: CALCIUM 8.6 mg/dL (8.5-10.1)
[2021-01-08 10:16] LABS: ALBUMIN 2.9 g/dl (3.4-5.0); BILIRUBIN,TOTAL 0.1 mg/dL (0.2-1)
[2021-01-08] MEDS ORDERED: methaDONE HCL 10 MG TABLET (FOR DETOX USE ONLY) PO ONE (13:52)
[2021-01-08] MEDS: PRENATAL VITAMINS W/ FOLIC ACID TABLET (FP) PO SCH (16:40)
[2021-01-08] MEDS: MELATONIN 5 MG TABLETS PO SCH (22:55)
[2021-01-08] MEDS: THIAMINE HCL 100 MG TABLET (FP) PO SCH (22:56)
[2021-01-09] MEDS: hydrOXYzine PAMOATE 25 MG CAPSULE (FP) PO SCH ×6 (00:45→23:20)
[2021-01-09] MEDS ORDERED: methaDONE HCL 10 MG TABLET (FOR DETOX USE ONLY) PO ONE (10:00)
[2021-01-09] MEDS: PRENATAL VITAMINS W/ FOLIC ACID TABLET (FP) PO SCH (11:27)
[2021-01-09] MEDS: THIAMINE HCL 100 MG TABLET (FP) PO SCH (23:20)
[2021-01-09] MEDS: MELATONIN 5 MG TABLETS PO SCH (23:20)
[2021-01-10] MEDS: hydrOXYzine PAMOATE 25 MG CAPSULE (FP) PO SCH ×3 (07:25→13:31)
[2021-01-10 10:07] VITALS: PULSE 57; TEMP 97.1
[2021-01-10] MEDS: PRENATAL VITAMINS W/ FOLIC ACID TABLET (FP) PO SCH (11:20)
[2021-01-10 12:55] VITALS: BP 141/80
[2021-01-11] MEDS ORDERED: methaDONE HCL 10 MG TABLET (FOR DETOX USE ONLY) PO ONE (10:00)
== END 2021-01-10 13:55 | disposition home or self-care (01) | DRG 773 ==
LOC: YASAS 15:08 → Y3N 01-08 12:29
PROVIDERS: ADMIT Allergy & Immunology; ATTEND Allergy & Immunology
PROC: HZ2ZZZZ Detoxification Services for Substance Abuse Treatment (ICD-10-PCS; principal; 2021-01-08)
DX: F11.23 Opioid dependence with withdrawal (principal); F16.20 Hallucinogen dependence, uncomplicated; F17.210 Nicotine dependence, cigarettes, uncomplicated; F19.24 Other psychoactive substance dependence with psychoactive substance-induced mood disorder; I10 Essential (primary) hypertension; M10.9 Gout, unspecified; M19.90 Unspecified osteoarthritis, unspecified site
CPT/HCPCS: 36415; 80053; 85027; 86780; C9803; J0735; U0003; U0005

== ENCOUNTER 2021-02-02 20:57 | Inpatient (IN) | payer OTHER ==
[2021-02-02] MEDS ORDERED: MAGNESIUM CITRATE 300 ML BOTTLE PO PRN (22:57)
[2021-02-02] MEDS ORDERED: cloNIDine HCL 0.1 MG TABLET PO PRN (22:57)
[2021-02-02] MEDS ORDERED: MAGNESIUM HYDROX 2400MG/30ML ORAL SUSPENSION 30 ML CUP PO PRN (22:57)
[2021-02-02] MEDS ORDERED: METHOCARBAMOL 500 MG TABLET PO PRN (22:57)
[2021-02-02] MEDS ORDERED: MENTHOL/PHENOL 1 EACH UD MM PRN (22:57)
[2021-02-02] MEDS ORDERED: methaDONE HCL 10 MG TABLET (FOR DETOX USE ONLY) PO ONE (22:57)
[2021-02-02] MEDS ORDERED: BISMUTH SUBSALICYLATE 524 MG/30 ML PO PRN (22:57)
[2021-02-02] MEDS ORDERED: IBUPROFEN 400 MG TABLET (FP) PO PRN (22:57)
[2021-02-02] MEDS ORDERED: ONDANSETRON *ODT* 4 MG TABLET SL PRN (22:57)
[2021-02-02] MEDS ORDERED: ACETAMINOPHEN 325 MG TABLET (FP) PO PRN ×2 (22:57)
[2021-02-02] MEDS ORDERED: clonazePAM 0.5 MG ODT TABLETS SL PRN (22:57)
[2021-02-02] MEDS ORDERED: NICOTINE POLACRILEX 2 MG GUM BUC PRN (22:57)
[2021-02-02] MEDS ORDERED: MAG HYDROX/AL HYDROX/SIMETH 30 ML UNIT-DOSE CUP PO PRN (22:57)
[2021-02-02 23:04] VITALS: BMI 24.3
[2021-02-03] MEDS ORDERED: methaDONE HCL 10 MG TABLET (FOR DETOX USE ONLY) PO ONE (00:26)
[2021-02-03] MEDS: hydrOXYzine PAMOATE 25 MG CAPSULE (FP) PO SCH ×5 (05:36→22:52)
[2021-02-03] MEDS ORDERED: methaDONE HCL 10 MG TABLET (FOR DETOX USE ONLY) ONE (08:50)
[2021-02-03 10:59] LABS: HEMATOCRIT 40.9 % (35.4-49); HEMOGLOBIN 13.5 GM/dL (11.7-16.9); MCHC 32.9 g/dl (32.0-35.9); MEAN CELL VOLUME 82.1 fl (80-96); MEAN PLT VOLUME 7.7 fl (7.5-11.1); PLATELET COUNT 216 10^3/uL (134-434); RBC 4.98 M/mm3 (4.00-5.60); RDW 14.8 % (11.9-15.9); WHITE BLOOD COUNT 7.5 K/mm3 (4.0-10.0)
[2021-02-03 11:08] LABS: CALCIUM 8.6 mg/dL (8.5-10.1)
[2021-02-03 11:09] LABS: BLOOD UREA NITROGEN 26.4 mg/dL (7-18)
[2021-02-03 11:12] LABS: CREATININE 1.1 mg/dL (0.55-1.3)
[2021-02-03 11:13] LABS: BILIRUBIN,TOTAL 0.4 mg/dL (0.2-1); TOT PROT 6.2 g/dl (6.4-8.2)
[2021-02-03 14:12] LABS: HIV INTERPRETATION NEGATIVE (NEGATIVE)
[2021-02-03] MEDS: NICOTINE 14 MG/24 HOURS TOPICAL PATCH TD SCH (15:15)
[2021-02-03] MEDS: PRENATAL VITAMINS W/ FOLIC ACID TABLET (FP) PO SCH (15:15)
[2021-02-03] MEDS: THIAMINE HCL 100 MG TABLET (FP) PO SCH (22:52)
[2021-02-03] MEDS: MELATONIN 5 MG TABLETS PO SCH (22:52)
[2021-02-04] MEDS: hydrOXYzine PAMOATE 25 MG CAPSULE (FP) PO SCH ×5 (07:06→23:22)
[2021-02-04] MEDS ORDERED: methaDONE HCL 10 MG TABLET (FOR DETOX USE ONLY) PO ONE (10:00)
[2021-02-04] MEDS: PRENATAL VITAMINS W/ FOLIC ACID TABLET (FP) PO SCH (11:22)
[2021-02-04] MEDS: NICOTINE 14 MG/24 HOURS TOPICAL PATCH TD SCH (11:22)
[2021-02-04] MEDS: MELATONIN 5 MG TABLETS PO SCH (23:21)
[2021-02-04] MEDS: THIAMINE HCL 100 MG TABLET (FP) PO SCH (23:22)
[2021-02-05] MEDS: hydrOXYzine PAMOATE 25 MG CAPSULE (FP) PO SCH (06:21)
[2021-02-05 06:25] VITALS: TEMP 97.5
[2021-02-05 08:55] VITALS: BP 150/86; PULSE 83
[2021-02-05] MEDS ORDERED: methaDONE HCL 10 MG TABLET (FOR DETOX USE ONLY) ONE (09:09)
[2021-02-06] MEDS ORDERED: methaDONE HCL 10 MG TABLET (FOR DETOX USE ONLY) PO ONE (10:00)
== END 2021-02-05 09:58 | disposition left against medical advice (07) | DRG 770 ==
LOC: YASAS 20:57 → Y3N 23:18
PROVIDERS: ADMIT Allergy & Immunology; ATTEND Allergy & Immunology
PROC: HZ2ZZZZ Detoxification Services for Substance Abuse Treatment (ICD-10-PCS; principal; 2021-02-02)
DX: F11.23 Opioid dependence with withdrawal (principal); F16.20 Hallucinogen dependence, uncomplicated; F17.210 Nicotine dependence, cigarettes, uncomplicated; I10 Essential (primary) hypertension; M10.9 Gout, unspecified; M19.90 Unspecified osteoarthritis, unspecified site; Z86.19 Personal history of other infectious and parasitic diseases
CPT/HCPCS: 36415; 80053; 84520; 85027; 86780; 87389; C9803; J0735; U0003; U0005

== ENCOUNTER 2021-03-17 14:37 | Inpatient (IN) | payer OTHER ==
[2021-03-17 20:27] VITALS: BMI 24.3
[2021-03-17] MEDS ORDERED: ONDANSETRON *ODT* 4 MG TABLET SL PRN (21:03)
[2021-03-17] MEDS ORDERED: hydrOXYzine PAMOATE 25 MG CAPSULE (FP) PO PRN (21:03)
[2021-03-17] MEDS ORDERED: MAGNESIUM HYDROX 2400MG/30ML ORAL SUSPENSION 30 ML CUP PO PRN (21:03)
[2021-03-17] MEDS ORDERED: MAG HYDROX/AL HYDROX/SIMETH 30 ML UNIT-DOSE CUP PO PRN (21:03)
[2021-03-17] MEDS ORDERED: MENTHOL/PHENOL 1 EACH UD MM PRN (21:03)
[2021-03-17] MEDS ORDERED: IBUPROFEN 400 MG TABLET (FP) PO PRN (21:03)
[2021-03-17] MEDS ORDERED: BISMUTH SUBSALICYLATE 524 MG/30 ML PO PRN (21:03)
[2021-03-17] MEDS ORDERED: ACETAMINOPHEN 325 MG TABLET (FP) PO PRN ×2 (21:03)
[2021-03-17] MEDS ORDERED: MAGNESIUM CITRATE 300 ML BOTTLE PO PRN (21:03)
[2021-03-17] MEDS ORDERED: METHOCARBAMOL 500 MG TABLET PO PRN (21:03)
[2021-03-17] MEDS ORDERED: NICOTINE 10 MG CARTRIDGE (INHALER) IH PRN (21:03)
[2021-03-17] MEDS ORDERED: NICOTINE POLACRILEX 2 MG GUM BUC PRN (21:03)
[2021-03-17] MEDS ORDERED: cloNIDine HCL 0.1 MG TABLET PO PRN (21:05)
[2021-03-17] MEDS ORDERED: THIAMINE HCL 100 MG TABLET (FP) PO SCH (22:00)
[2021-03-17] MEDS ORDERED: MELATONIN 5 MG TABLETS PO SCH (22:00)
[2021-03-18] MEDS ORDERED: PRENATAL VITAMINS W/ FOLIC ACID TABLET (FP) PO SCH (10:00)
[2021-03-18 10:59] LABS: HEMATOCRIT 40.6 % (35.4-49); HEMOGLOBIN 13.1 GM/dL (11.7-16.9); MCH 26.3 pg (25.7-33.7); MCHC 32.2 g/dl (32.0-35.9); MEAN CELL VOLUME 81.8 fl (80-96); MEAN PLT VOLUME 7.9 fl (7.5-11.1); PLATELET COUNT 242 10^3/uL (134-434); RBC 4.97 M/mm3 (4.00-5.60); RDW 15.7 % (11.9-15.9); WHITE BLOOD COUNT 7.8 K/mm3 (4.0-10.0)
[2021-03-18 11:12] LABS: ALBUMIN 2.9 g/dl (3.4-5.0); BLOOD UREA NITROGEN 16.9 mg/dL (7-18); CALCIUM 9.4 mg/dL (8.5-10.1)
[2021-03-18 11:14] LABS: BILIRUBIN,TOTAL 0.2 mg/dL (0.2-1); TOT PROT 6.4 g/dl (6.4-8.2)
[2021-03-18 13:17] VITALS: BP 140/84; PULSE 84; TEMP 97.7
== END 2021-03-18 13:10 | disposition home or self-care (01) | DRG 773 ==
LOC: YASAS 14:37 → Y6N 22:55 → UNDOADMIN 22:55
PROVIDERS: ADMIT Allergy & Immunology; ATTEND Allergy & Immunology
PROC: HZ2ZZZZ Detoxification Services for Substance Abuse Treatment (ICD-10-PCS; principal; 2021-03-17)
DX: F11.23 Opioid dependence with withdrawal (principal); F16.20 Hallucinogen dependence, uncomplicated; F17.210 Nicotine dependence, cigarettes, uncomplicated; I10 Essential (primary) hypertension
CPT/HCPCS: 36415; 80053; 85027; 86780; C9803; U0003; U0005

== ENCOUNTER 2022-04-26 08:59 | Inpatient (IN) | payer OTHER ==
[2022-04-26 09:18] VITALS: BMI 21.7
[2022-04-26] MEDS ORDERED: BENZOCAINE/MENTHOL (CHLORASEPTIC ) LOZENGE MM PRN (10:08)
[2022-04-26] MEDS ORDERED: ONDANSETRON *ODT* 4 MG TABLET SL PRN (10:08)
[2022-04-26] MEDS ORDERED: MAGNESIUM CITRATE 300 ML BOTTLE PO PRN (10:08)
[2022-04-26] MEDS ORDERED: NALOXONE HCL (KLOXXADO) 8 MG SPRAY NS PRN (10:08)
[2022-04-26] MEDS ORDERED: BISMUTH SUBSALICYLATE 524 MG/30 ML PO PRN (10:08)
[2022-04-26] MEDS ORDERED: hydrOXYzine PAMOATE 25 MG CAPSULE (FP) PO PRN (10:08)
[2022-04-26] MEDS ORDERED: NICOTINE 10 MG CARTRIDGE (INHALER) IH PRN (10:08)
[2022-04-26] MEDS ORDERED: NICOTINE POLACRILEX 2 MG GUM BUC PRN (10:08)
[2022-04-26] MEDS ORDERED: MAG HYDROX/AL HYDROX/SIMETH 30 ML UNIT-DOSE CUP PO PRN (10:08)
[2022-04-26] MEDS ORDERED: DICYCLOMINE HCL 10 MG CAPSULE PO PRN (10:08)
[2022-04-26] MEDS ORDERED: METHOCARBAMOL 500 MG TABLET PO PRN (10:08)
[2022-04-26] MEDS ORDERED: ACETAMINOPHEN 325 MG TABLET (FP) PO PRN ×2 (10:08)
[2022-04-26] MEDS ORDERED: cloNIDine HCL 0.1 MG TABLET PO PRN (10:08)
[2022-04-26] MEDS ORDERED: IBUPROFEN 400 MG TABLET (FP) PO PRN (10:08)
[2022-04-26] MEDS ORDERED: MAGNESIUM HYDROX 2400MG/30ML ORAL SUSPENSION 30 ML CUP PO PRN (10:08)
[2022-04-26] MEDS ORDERED: LOPERAMIDE HCL 2 MG CAPSULE PO PRN (10:08)
[2022-04-26] MEDS ORDERED: IBUPROFEN 600 MG TABLET (FP) PO PRN (10:08)
[2022-04-26] MEDS ORDERED: PRENATAL VITAMINS W/ FOLIC ACID TABLET (FP) PO SCH (11:00)
[2022-04-26] MEDS ORDERED: methaDONE HCL 10 MG TABLET (FOR DETOX USE ONLY) PO ONE (11:00)
[2022-04-26] MEDS ORDERED: NICOTINE 14 MG/24 HOURS TOPICAL PATCH TD SCH (11:00)
[2022-04-26] MEDS ORDERED: methaDONE HCL 10 MG TABLET (FOR DETOX USE ONLY) ONE (12:16)
[2022-04-26 16:21] LABS: HEMATOCRIT 40.8 % (35.4-49); MCHC 31.9 g/dl (32.0-35.9); MEAN CELL VOLUME 81.5 fl (80-96); MEAN PLT VOLUME 8.2 fl (7.5-11.1); PLATELET COUNT 236 10^3/uL (134-434); RBC 5.01 M/mm3 (4.00-5.60); RDW 14.9 % (11.9-15.9)
[2022-04-26 16:26] LABS: CALCIUM 9.2 mg/dL (8.5-10.1)
[2022-04-26 16:27] LABS: ALBUMIN 3.3 g/dl (3.4-5.0)
[2022-04-26 16:32] LABS: BILIRUBIN,TOTAL 0.3 mg/dL (0.2-1); TOT PROT 6.8 g/dl (6.4-8.2)
[2022-04-26] MEDS ORDERED: MELATONIN 5 MG TABLETS PO SCH (22:00)
[2022-04-26] MEDS ORDERED: THIAMINE HCL 100 MG TABLET (FP) PO SCH (22:00)
[2022-04-27 08:43] VITALS: BP 163/82; PULSE 65; RESP 16; TEMP 97.3
[2022-04-28] MEDS ORDERED: methaDONE HCL 10 MG TABLET (FOR DETOX USE ONLY) PO ONE (10:00)
[2022-04-30] MEDS ORDERED: methaDONE HCL 10 MG TABLET (FOR DETOX USE ONLY) PO ONE (10:00)
== END 2022-04-27 10:02 | disposition left against medical advice (07) | DRG 770 ==
LOC: YASAS 08:59 → Y3N 10:33
PROVIDERS: ADMIT Allergy & Immunology; ATTEND Surgery
PROC: HZ2ZZZZ Detoxification Services for Substance Abuse Treatment (ICD-10-PCS; principal; 2022-04-26)
DX: F11.23 Opioid dependence with withdrawal (principal); F16.20 Hallucinogen dependence, uncomplicated; F15.20 Other stimulant dependence, uncomplicated; F17.210 Nicotine dependence, cigarettes, uncomplicated; I10 Essential (primary) hypertension; B35.3 Tinea pedis; M19.041 Primary osteoarthritis, right hand; M19.042 Primary osteoarthritis, left hand; Z86.718 Personal history of other venous thrombosis and embolism; Z86.19 Personal history of other infectious and parasitic diseases; Z28.310 Unvaccinated for COVID-19; Z28.21 Immunization not carried out because of patient refusal
CPT/HCPCS: 36415; 80053; 85027; 86780; 87811; 93005; 93010; C9803-CS; U0003; U0005

== ENCOUNTER 2022-08-04 18:22 | Inpatient (IN) | payer OTHER ==
[2022-08-04 19:48] VITALS: BMI 23.1
[2022-08-04] MEDS ORDERED: METHOCARBAMOL 500 MG TABLET PO PRN (20:15)
[2022-08-04] MEDS ORDERED: MAGNESIUM HYDROX 2400MG/30ML ORAL SUSPENSION 30 ML CUP PO PRN (20:15)
[2022-08-04] MEDS ORDERED: LOPERAMIDE HCL 2 MG CAPSULE PO PRN (20:15)
[2022-08-04] MEDS ORDERED: DICYCLOMINE HCL 10 MG CAPSULE PO PRN (20:15)
[2022-08-04] MEDS ORDERED: BISMUTH SUBSALICYLATE 524 MG/30 ML PO PRN (20:15)
[2022-08-04] MEDS ORDERED: ACETAMINOPHEN 325 MG TABLET (FP) PO PRN ×2 (20:15)
[2022-08-04] MEDS ORDERED: POLYETHYLENE GLYCOL (HEALTHYLAX) 3350 17 GM PACKET PO PRN (20:15)
[2022-08-04] MEDS ORDERED: BENZOCAINE/MENTHOL (CHLORASEPTIC ) LOZENGE MM PRN (20:15)
[2022-08-04] MEDS ORDERED: NALOXONE HCL (KLOXXADO) 8 MG SPRAY NS PRN (20:15)
[2022-08-04] MEDS ORDERED: hydrOXYzine PAMOATE 25 MG CAPSULE (FP) PO PRN (20:15)
[2022-08-04] MEDS ORDERED: IBUPROFEN 600 MG TABLET (FP) PO PRN (20:15)
[2022-08-04] MEDS ORDERED: ONDANSETRON *ODT* 4 MG TABLET SL PRN (20:15)
[2022-08-04] MEDS ORDERED: MAG HYDROX/AL HYDROX/SIMETH 30 ML UNIT-DOSE CUP PO PRN (20:15)
[2022-08-04] MEDS ORDERED: IBUPROFEN 400 MG TABLET (FP) PO PRN (20:15)
[2022-08-04] MEDS ORDERED: NICOTINE POLACRILEX 2 MG GUM BUC PRN (20:15)
[2022-08-04] MEDS ORDERED: THIAMINE HCL 100 MG TABLET (FP) PO SCH (22:00)
[2022-08-04] MEDS ORDERED: MELATONIN 5 MG TABLETS PO SCH (22:00)
[2022-08-05] MEDS ORDERED: methaDONE HCL 10 MG TABLET PO SCH (08:30)
[2022-08-05] MEDS ORDERED: methaDONE 40 MG, methaDONE 20 MG PO ONE (09:00)
[2022-08-05 09:10] VITALS: BP 159/87; PULSE 66; RESP 18; TEMP 96.9
[2022-08-05] MEDS ORDERED: PRENATAL VITAMINS W/ FOLIC ACID TABLET (FP) PO SCH (10:00)
[2022-08-05] MEDS ORDERED: NICOTINE 14 MG/24 HOURS TOPICAL PATCH TD SCH (10:00)
[2022-08-05 10:59] LABS: CALCIUM 8.6 mg/dL (8.5-10.1)
[2022-08-05 11:00] LABS: ALBUMIN 2.9 g/dl (3.4-5.0); BLOOD UREA NITROGEN 19.2 mg/dL (7-18); HEMATOCRIT 38.2 % (35.4-49); MCHC 31.4 g/dl (32.0-35.9); MEAN CELL VOLUME 82.8 fl (80-96); MEAN PLT VOLUME 7.7 fl (7.5-11.1); PLATELET COUNT 201 10^3/uL (134-434); RBC 4.61 M/mm3 (4.00-5.60); RDW 15.4 % (11.9-15.9); WHITE BLOOD COUNT 7.4 K/mm3 (4.0-10.0)
[2022-08-05 11:03] LABS: CREATININE 1.2 mg/dL (0.55-1.3)
[2022-08-05 11:04] LABS: BILIRUBIN,TOTAL 0.2 mg/dL (0.2-1)
[2022-08-05] MEDS ORDERED: SUVOREXANT 10 MG TABLET PO PRN (22:00)
[2022-08-06] MEDS ORDERED: methaDONE 40 MG, methaDONE 20 MG PO SCH (06:00)
== END 2022-08-05 10:09 | disposition home or self-care (01) | DRG 773 ==
LOC: YASAS 18:22 → Y6N 23:44
PROVIDERS: ADMIT Allergy & Immunology; ATTEND Surgery
PROC: HZ2ZZZZ Detoxification Services for Substance Abuse Treatment (ICD-10-PCS; principal; 2022-08-04)
DX: F10.230 Alcohol dependence with withdrawal, uncomplicated (principal); F11.20 Opioid dependence, uncomplicated; F16.20 Hallucinogen dependence, uncomplicated; F17.210 Nicotine dependence, cigarettes, uncomplicated; F19.282 Other psychoactive substance dependence with psychoactive substance-induced sleep disorder; F19.24 Other psychoactive substance dependence with psychoactive substance-induced mood disorder; I10 Essential (primary) hypertension; M10.9 Gout, unspecified; M19.041 Primary osteoarthritis, right hand; M19.042 Primary osteoarthritis, left hand; Z86.69 Personal history of other diseases of the nervous system and sense organs; Z86.19 Personal history of other infectious and parasitic diseases; Z28.310 Unvaccinated for COVID-19; Z28.21 Immunization not carried out because of patient refusal
CPT/HCPCS: 36415; 80053; 85027; 86780; C9803-CS; U0003; U0005

== ENCOUNTER 2022-09-07 08:29 | Inpatient (IN) | payer OTHER ==
[2022-09-07 09:07] VITALS: BMI 22.5
[2022-09-07] MEDS ORDERED: MAGNESIUM HYDROX 2400MG/30ML ORAL SUSPENSION 30 ML CUP PO PRN (09:29)
[2022-09-07] MEDS ORDERED: NICOTINE 21 MG/24 HOURS TOPICAL PATCH TD PRN (09:29)
[2022-09-07] MEDS ORDERED: BENZONATATE 200 MG CAPSULE PO PRN (09:29)
[2022-09-07] MEDS ORDERED: IBUPROFEN 600 MG TABLET (FP) PO PRN (09:29)
[2022-09-07] MEDS ORDERED: MAG HYDROX/AL HYDROX/SIMETH 30 ML UNIT-DOSE CUP PO PRN (09:29)
[2022-09-07] MEDS ORDERED: POLYETHYLENE GLYCOL (HEALTHYLAX) 3350 17 GM PACKET PO PRN (09:29)
[2022-09-07] MEDS ORDERED: NICOTINE 10 MG CARTRIDGE (INHALER) IH PRN (09:29)
[2022-09-07] MEDS ORDERED: hydrOXYzine PAMOATE 25 MG CAPSULE (FP) PO PRN (09:29)
[2022-09-07] MEDS ORDERED: NICOTINE POLACRILEX 4 MG GUM BUC PRN (09:29)
[2022-09-07] MEDS ORDERED: LOPERAMIDE HCL 2 MG CAPSULE PO PRN (09:29)
[2022-09-07] MEDS ORDERED: BENZOCAINE/MENTHOL (CHLORASEPTIC ) LOZENGE MM PRN (09:29)
[2022-09-07] MEDS ORDERED: IBUPROFEN 400 MG TABLET (FP) PO PRN (09:29)
[2022-09-07] MEDS ORDERED: guaiFENesin 600 MG TABLET.ER (FP) PO PRN (09:29)
[2022-09-07] MEDS ORDERED: ACETAMINOPHEN 325 MG TABLET (FP) PO PRN (09:29)
[2022-09-07] MEDS ORDERED: NALOXONE HCL (KLOXXADO) 8 MG SPRAY NS PRN (09:29)
[2022-09-07] MEDS ORDERED: NALOXONE HCL 0.4 MG/ML VIAL IM PRN (09:29)
[2022-09-07] MEDS ORDERED: cloNIDine HCL 0.1 MG TABLET PO PRN (09:33)
[2022-09-07] MEDS ORDERED: PRENATAL VITAMINS W/ FOLIC ACID TABLET (FP) PO ONE (10:22)
[2022-09-07] MEDS ORDERED: cloNIDine HCL 0.1 MG TABLET ONE (10:22)
[2022-09-07] MEDS: PRENATAL VITAMINS W/ FOLIC ACID TABLET (FP) PO SCH (10:25)
[2022-09-07] MEDS ORDERED: MELATONIN 5 MG TABLETS PO SCH (22:00)
[2022-09-07] MEDS ORDERED: THIAMINE HCL 100 MG TABLET (FP) PO SCH (22:00)
[2022-09-08] MEDS ORDERED: methaDONE HCL 40 MG DISPERSABLE TABLET PO SCH (06:00)
[2022-09-08] MEDS ORDERED: methaDONE 40 MG, methaDONE 30 MG PO SCH (06:00)
[2022-09-08 06:47] VITALS: BP 157/87; PULSE 75; RESP 18; TEMP 98.7
[2022-09-08 10:38] LABS: HEMATOCRIT 41.7 % (35.4-49); HEMOGLOBIN 13.3 GM/dL (11.7-16.9); MCH 25.7 pg (25.7-33.7); MCHC 31.9 g/dl (32.0-35.9); MEAN CELL VOLUME 80.7 fl (80-96); MEAN PLT VOLUME 7.3 fl (7.5-11.1); PLATELET COUNT 226 10^3/uL (134-434); RBC 5.16 M/mm3 (4.00-5.60); RDW 14.9 % (11.9-15.9); WHITE BLOOD COUNT 7.6 K/mm3 (4.0-10.0)
[2022-09-08 10:55] LABS: CALCIUM 9.2 mg/dL (8.5-10.1)
[2022-09-08 10:56] LABS: ALBUMIN 3.4 g/dl (3.4-5.0)
[2022-09-08 10:58] LABS: BILIRUBIN,TOTAL 0.2 mg/dL (0.2-1); TOT PROT 7.2 g/dl (6.4-8.2)
[2022-09-08 11:00] LABS: CREATININE 1.1 mg/dL (0.55-1.3)
[2022-09-08] MEDS: PRENATAL VITAMINS W/ FOLIC ACID TABLET (FP) PO SCH (11:22)
[2022-09-08 15:05] LABS: URINE APPEARANCE CLEAR; URINE BILIRUBIN NEGATIVE (NEGATIVE); URINE COLOR YELLOW; URINE GLUCOSE (UA) NEGATIVE (NEGATIVE); URINE KETONE NEGATIVE (NEGATIVE); URINE LEUK ESTERASE NEGATIVE (NEGATIVE); URINE NITRITE NEGATIVE (NEGATIVE); URINE PROTEIN NEGATIVE (NEGATIVE); URINE UROBILINOGEN 0.2 mg/dL (0.2-1.0)
== END 2022-09-08 11:22 | disposition left against medical advice (07) | DRG 770 ==
LOC: YASAS 08:29 → Y3W 12:17
PROVIDERS: ADMIT Allergy & Immunology; ATTEND Psychiatry & Neurology Pain Medicine
PROC: HZ42ZZZ Group Counseling for Substance Abuse Treatment, Cognitive-Behavioral (ICD-10-PCS; principal; 2022-09-07)
DX: F11.20 Opioid dependence, uncomplicated (principal); F14.20 Cocaine dependence, uncomplicated; F16.20 Hallucinogen dependence, uncomplicated; F17.210 Nicotine dependence, cigarettes, uncomplicated; I10 Essential (primary) hypertension; B35.3 Tinea pedis; M19.041 Primary osteoarthritis, right hand; M19.042 Primary osteoarthritis, left hand; M10.9 Gout, unspecified; Z86.19 Personal history of other infectious and parasitic diseases; Z28.310 Unvaccinated for COVID-19; Z28.9 Immunization not carried out for unspecified reason
CPT/HCPCS: 36415; 80053; 81003; 85027; 86780; 86803; C9803-CS; U0003; U0005

== ENCOUNTER 2022-12-09 09:26 | Emergency (ER) | payer OTHER ==
[2022-12-09 09:38] VITALS: BP 104/57; PULSE 68; RESP 12; TEMP 97.9; BMI 28.8
[2022-12-09] MEDS ORDERED: NALOXONE HCL 0.4 MG/ML VIAL ONE (09:47)
[2022-12-09] MEDS ORDERED: NALOXONE HCL 0.4 MG/ML VIAL IVPUSH ONE (09:48)
[2022-12-09 10:46] LABS: CALCIUM 8.8 mg/dL (8.5-10.1)
[2022-12-09 10:47] LABS: ALBUMIN 3.3 g/dl (3.4-5.0); BLOOD UREA NITROGEN 17.3 mg/dL (7-18)
[2022-12-09 10:51] LABS: BILIRUBIN,TOTAL 0.3 mg/dL (0.2-1)
[2022-12-09 10:52] LABS: TOT PROT 6.7 g/dl (6.4-8.2)
[2022-12-09 11:18] LABS: BASO % 0.6 % (0-2.0); EOS % 3.4 % (0-4.5); HEMATOCRIT 35.1 % (35.4-49); HEMOGLOBIN 11.5 GM/dL (11.7-16.9); LYMPH % 25.3 % (8-40); MCH 26.4 pg (25.7-33.7); MCHC 32.6 g/dl (32.0-35.9); MEAN CELL VOLUME 80.8 fl (80-96); MONO % 15.6 % (3.8-10.2); NEUT % 55.1 % (42.8-82.8); PLATELET COUNT 224 10^3/uL (134-434); RBC 4.35 M/mm3 (4.00-5.60); RDW 14.7 % (11.9-15.9)
== END 2022-12-09 14:38 | disposition home or self-care (01) ==
LOC: JER 09:26
PROC: 3E033GC Introduction of Other Therapeutic Substance into Peripheral Vein, Percutaneous Approach (ICD-10-PCS; principal; 2022-12-09)
DX: F11.10 Opioid abuse, uncomplicated (principal)
CPT/HCPCS: 36415; 71045-TC-FY; 80053; 83735; 84484; 85025; 93005; 93010; 99285-25

== ENCOUNTER 2023-05-05 11:54 | Inpatient (IN) | payer OTHER ==
[2023-05-05 13:12] VITALS: BMI 25.5
[2023-05-05] MEDS ORDERED: guaiFENesin 600 MG TABLET.ER (FP) PO PRN (13:36)
[2023-05-05] MEDS ORDERED: COLLOIDAL OATMEAL 1 BAR EACH TP PRN (13:36)
[2023-05-05] MEDS ORDERED: MAGNESIUM HYDROX 2400MG/30ML ORAL SUSPENSION 30 ML CUP PO PRN (13:36)
[2023-05-05] MEDS ORDERED: MAG HYDROX/AL HYDROX/SIMETH 30 ML UNIT-DOSE CUP PO PRN (13:36)
[2023-05-05] MEDS ORDERED: POLYETHYLENE GLYCOL (HEALTHYLAX) 3350 17 GM PACKET PO PRN (13:36)
[2023-05-05] MEDS ORDERED: hydrOXYzine PAMOATE 25 MG CAPSULE (FP) PO PRN (13:36)
[2023-05-05] MEDS ORDERED: NALOXONE HCL (KLOXXADO) 8 MG SPRAY NS PRN (13:36)
[2023-05-05] MEDS ORDERED: NALOXONE HCL 0.4 MG/ML VIAL IM PRN (13:36)
[2023-05-05] MEDS ORDERED: ACETAMINOPHEN 325 MG TABLET (FP) PO PRN (13:36)
[2023-05-05] MEDS ORDERED: IBUPROFEN 600 MG TABLET (FP) PO PRN (13:36)
[2023-05-05] MEDS ORDERED: LOPERAMIDE HCL 2 MG CAPSULE PO PRN (13:36)
[2023-05-05] MEDS ORDERED: IBUPROFEN 400 MG TABLET (FP) PO PRN (13:36)
[2023-05-05] MEDS ORDERED: BENZOCAINE/MENTHOL (CHLORASEPTIC ) LOZENGE MM PRN (13:36)
[2023-05-05] MEDS ORDERED: BENZONATATE 200 MG CAPSULE PO PRN (13:36)
[2023-05-05] MEDS ORDERED: PRENATAL VITAMINS W/ FOLIC ACID TABLET (FP) PO ONE (15:14)
[2023-05-05] MEDS: PRENATAL VITAMINS W/ FOLIC ACID TABLET (FP) PO SCH (15:17)
[2023-05-05] MEDS: MELATONIN 5 MG TABLETS PO SCH (21:30)
[2023-05-05] MEDS: THIAMINE HCL 100 MG TABLET (FP) PO SCH (21:30)
[2023-05-06] MEDS ORDERED: methaDONE HCL 40 MG DISPERSABLE TABLET PO SCH (07:00)
[2023-05-06] MEDS: PRENATAL VITAMINS W/ FOLIC ACID TABLET (FP) PO SCH (09:17)
[2023-05-06 16:01] LABS: POTASSIUM 4.5 mmol/L (3.5-5.1)
[2023-05-06 16:09] LABS: HEMATOCRIT 35.9 % (35.4-49); HEMOGLOBIN 11.7 GM/dL (11.7-16.9); MCH 26.9 pg (25.7-33.7); MCHC 32.6 g/dl (32.0-35.9); MEAN CELL VOLUME 82.5 fl (80-96); MEAN PLT VOLUME 7.5 fl (7.5-11.1); PLATELET COUNT 214 10^3/uL (134-434); RBC 4.36 M/mm3 (4.00-5.60); RDW 15.8 % (11.9-15.9); WHITE BLOOD COUNT 8.7 K/mm3 (4.0-10.0)
[2023-05-06 16:13] LABS: CALCIUM 8.9 mg/dL (8.5-10.1)
[2023-05-06 16:14] LABS: ALBUMIN 2.8 g/dl (3.4-5.0); BLOOD UREA NITROGEN 16.5 mg/dL (7-18)
[2023-05-06 16:17] LABS: CREATININE 0.9 mg/dL (0.55-1.3)
[2023-05-06 16:18] LABS: BILIRUBIN,TOTAL 0.5 mg/dL (0.2-1); TOT PROT 6.2 g/dl (6.4-8.2)
[2023-05-06 16:30] LABS: SYPHILIS W/ RPR CONF NON-REACTIVE (NONREACTIVE)
[2023-05-06] MEDS: MELATONIN 5 MG TABLETS PO SCH (21:26)
[2023-05-06] MEDS: THIAMINE HCL 100 MG TABLET (FP) PO SCH (21:26)
[2023-05-07 06:59] VITALS: BP 153/72; PULSE 57; RESP 18; TEMP 97.9
[2023-05-07] MEDS: PRENATAL VITAMINS W/ FOLIC ACID TABLET (FP) PO SCH (10:08)
[2023-05-07 10:25] LABS: URINE APPEARANCE CLEAR; URINE BILIRUBIN NEGATIVE (NEGATIVE); URINE COLOR YELLOW; URINE GLUCOSE (UA) NEGATIVE (NEGATIVE); URINE KETONE NEGATIVE (NEGATIVE); URINE LEUK ESTERASE NEGATIVE (NEGATIVE); URINE NITRITE NEGATIVE (NEGATIVE); URINE PROTEIN NEGATIVE (NEGATIVE); URINE UROBILINOGEN 0.2 mg/dL (0.2-1.0)
== END 2023-05-07 15:07 | disposition home or self-care (01) | DRG 772 ==
LOC: YASAS 11:54 → Y3E 16:43
PROVIDERS: ADMIT Allergy & Immunology; ATTEND Psychiatry & Neurology Pain Medicine
PROC: HZ42ZZZ Group Counseling for Substance Abuse Treatment, Cognitive-Behavioral (ICD-10-PCS; principal; 2023-05-05)
DX: F10.20 Alcohol dependence, uncomplicated (principal); F11.20 Opioid dependence, uncomplicated; F16.20 Hallucinogen dependence, uncomplicated; F17.210 Nicotine dependence, cigarettes, uncomplicated; F19.24 Other psychoactive substance dependence with psychoactive substance-induced mood disorder; I10 Essential (primary) hypertension; Z86.19 Personal history of other infectious and parasitic diseases; Z28.310 Unvaccinated for COVID-19; Z28.21 Immunization not carried out because of patient refusal
CPT/HCPCS: 36415; 80053; 80307; 81003; 85027; 86780; 86803; 87635; 87811

== ENCOUNTER 2023-07-07 17:53 | Inpatient (IN) | payer OTHER ==
[2023-07-07 19:48] VITALS: BMI 23.6
[2023-07-07] MEDS ORDERED: MELATONIN 5 MG TABLETS PO PRN (22:49)
[2023-07-07] MEDS ORDERED: NICOTINE POLACRILEX 2 MG LOZENGE BC PRN (22:49)
[2023-07-07] MEDS ORDERED: MAG HYDROX/AL HYDROX/SIMETH 30 ML UNIT-DOSE CUP PO PRN (22:49)
[2023-07-07] MEDS ORDERED: P-EPHED 60MG/TRIPROLIDI 2.5MG TABLET PO PRN (22:49)
[2023-07-07] MEDS ORDERED: BENZOCAINE/MENTHOL (CHLORASEPTIC ) LOZENGE MM PRN (22:49)
[2023-07-07] MEDS ORDERED: guaiFENesin 600 MG TABLET.ER (FP) PO PRN (22:49)
[2023-07-07] MEDS ORDERED: IBUPROFEN 600 MG TABLET (FP) PO PRN (22:49)
[2023-07-07] MEDS ORDERED: LOPERAMIDE HCL 2 MG CAPSULE PO PRN (22:49)
[2023-07-07] MEDS ORDERED: NALOXONE HCL 0.4 MG/ML VIAL IM PRN (22:49)
[2023-07-07] MEDS ORDERED: POLYETHYLENE GLYCOL (HEALTHYLAX) 3350 17 GM PACKET PO PRN (22:49)
[2023-07-07] MEDS ORDERED: BENZONATATE 200 MG CAPSULE PO PRN (22:49)
[2023-07-07] MEDS ORDERED: IBUPROFEN 400 MG TABLET (FP) PO PRN (22:49)
[2023-07-07] MEDS ORDERED: ACETAMINOPHEN 325 MG TABLET (FP) PO PRN (22:49)
[2023-07-07] MEDS ORDERED: MAGNESIUM HYDROX 2400MG/30ML ORAL SUSPENSION 30 ML CUP PO PRN (22:49)
[2023-07-07] MEDS ORDERED: NALOXONE HCL (KLOXXADO) 8 MG SPRAY NS PRN (22:49)
[2023-07-08] MEDS ORDERED: methaDONE HCL 10 MG TABLET PO SCH (09:15)
[2023-07-08] MEDS: PRENATAL VITAMINS W/ FOLIC ACID TABLET (FP) PO SCH (10:02)
[2023-07-08 11:22] LABS: CHLORIDE 111 mmol/L (98-107); POTASSIUM 4.1 mmol/L (3.5-5.1); SODIUM 143 mmol/L (136-145)
[2023-07-08 11:28] LABS: HEMATOCRIT 35.5 % (35.4-49); HEMOGLOBIN 11.2 GM/dL (11.7-16.9); MCH 25.6 pg (25.7-33.7); MCHC 31.4 g/dl (32.0-35.9); MEAN CELL VOLUME 81.6 fl (80-96); MEAN PLT VOLUME 7.3 fl (7.5-11.1); PLATELET COUNT 288 10^3/uL (134-434); RBC 4.35 M/mm3 (4.00-5.60); RDW 15.4 % (11.9-15.9); WHITE BLOOD COUNT 6.9 K/mm3 (4.0-10.0)
[2023-07-08 11:38] LABS: ALBUMIN 2.6 g/dl (3.4-5.0); ANION GAP 3 mmol/L (4-13); BLOOD UREA NITROGEN 22.5 mg/dL (7-18); CALCIUM 8.7 mg/dL (8.5-10.1); CO2 30 mmol/L (21-32); GLUCOSE,RANDOM 101 mg/dL (74-106)
[2023-07-08 11:41] LABS: SGOT/AST 21 U/L (15-37); SGPT/ALT 23 U/L (13-61)
[2023-07-08 11:42] LABS: ALK PHOS 78 U/L (45-117); BILIRUBIN,TOTAL 0.2 mg/dL (0.2-1)
[2023-07-08 11:43] LABS: TOT PROT 6.3 g/dl (6.4-8.2)
[2023-07-08] MEDS: THIAMINE HCL 100 MG TABLET (FP) PO SCH (21:15)
[2023-07-09] MEDS: PRENATAL VITAMINS W/ FOLIC ACID TABLET (FP) PO SCH (10:09)
[2023-07-09] MEDS: THIAMINE HCL 100 MG TABLET (FP) PO SCH (21:34)
[2023-07-10] MEDS: PRENATAL VITAMINS W/ FOLIC ACID TABLET (FP) PO SCH (09:58)
[2023-07-10 19:11] LABS: EPI CELLS 8 /uL (0-25.1); HYALINE CASTS 0 /uL (0-3.1); PH,URINE 5.5 (5.0-8.0); URINE APPEARANCE CLEAR; URINE BACTERIA 8 /uL (0-1359); URINE BILIRUBIN NEGATIVE (NEGATIVE); URINE COLOR YELLOW; URINE GLUCOSE (UA) NEGATIVE (NEGATIVE); URINE KETONE NEGATIVE (NEGATIVE); URINE LEUK ESTERASE TRACE (NEGATIVE); URINE NITRITE NEGATIVE (NEGATIVE); URINE PROTEIN NEGATIVE (NEGATIVE); URINE RBC 4 /uL (0-23.9); URINE UROBILINOGEN 0.2 mg/dL (0.2-1.0); URINE WBC 32 /uL (0-25.8)
[2023-07-10] MEDS: THIAMINE HCL 100 MG TABLET (FP) PO SCH (22:05)
[2023-07-11 07:08] VITALS: RESP 18
[2023-07-11] MEDS: PRENATAL VITAMINS W/ FOLIC ACID TABLET (FP) PO SCH (10:22)
[2023-07-11] MEDS: THIAMINE HCL 100 MG TABLET (FP) PO SCH (21:36)
[2023-07-12] MEDS: PRENATAL VITAMINS W/ FOLIC ACID TABLET (FP) PO SCH (10:26)
[2023-07-12] MEDS: THIAMINE HCL 100 MG TABLET (FP) PO SCH (23:35)
[2023-07-13] MEDS: PRENATAL VITAMINS W/ FOLIC ACID TABLET (FP) PO SCH (10:29)
[2023-07-13] MEDS: THIAMINE HCL 100 MG TABLET (FP) PO SCH (21:44)
[2023-07-14 07:14] VITALS: BP 128/64; PULSE 72; TEMP 97.7
[2023-07-14] MEDS: PRENATAL VITAMINS W/ FOLIC ACID TABLET (FP) PO SCH (09:55)
== END 2023-07-14 13:15 | disposition left against medical advice (07) | DRG 770 ==
LOC: YASAS 17:53 → Y5N 23:52
PROVIDERS: ADMIT Allergy & Immunology; ATTEND Psychiatry & Neurology Pain Medicine
PROC: HZ42ZZZ Group Counseling for Substance Abuse Treatment, Cognitive-Behavioral (ICD-10-PCS; principal; 2023-07-07)
DX: F14.20 Cocaine dependence, uncomplicated (principal); F11.20 Opioid dependence, uncomplicated; F16.20 Hallucinogen dependence, uncomplicated; F17.210 Nicotine dependence, cigarettes, uncomplicated; F19.24 Other psychoactive substance dependence with psychoactive substance-induced mood disorder; I10 Essential (primary) hypertension; M10.9 Gout, unspecified; M19.041 Primary osteoarthritis, right hand; M19.042 Primary osteoarthritis, left hand; B35.3 Tinea pedis; F91.8 Other conduct disorders; Z91.199 Patient's noncompliance with other medical treatment and regimen due to unspecified reason; Z86.19 Personal history of other infectious and parasitic diseases; Z28.310 Unvaccinated for COVID-19; Z28.21 Immunization not carried out because of patient refusal
CPT/HCPCS: 0241U-QW; 36415; 80053; 80307; 81003; 85027; 86780

== ENCOUNTER 2023-09-23 03:29 | Inpatient (IN) | payer OTHER ==
[2023-09-23 03:58] VITALS: BMI 24.3
[2023-09-23] MEDS ORDERED: IBUPROFEN 600 MG TABLET (FP) PO PRN (05:03)
[2023-09-23] MEDS ORDERED: hydrOXYzine PAMOATE 25 MG CAPSULE (FP) PO PRN (05:03)
[2023-09-23] MEDS ORDERED: guaiFENesin 600 MG TABLET.ER (FP) PO PRN (05:03)
[2023-09-23] MEDS ORDERED: LOPERAMIDE HCL 2 MG CAPSULE PO PRN (05:03)
[2023-09-23] MEDS ORDERED: MAGNESIUM HYDROX 2400MG/30ML ORAL SUSPENSION 30 ML CUP PO PRN (05:03)
[2023-09-23] MEDS ORDERED: BENZOCAINE/MENTHOL (CHLORASEPTIC ) LOZENGE MM PRN (05:03)
[2023-09-23] MEDS ORDERED: NICOTINE POLACRILEX 4 MG GUM BUC PRN (05:03)
[2023-09-23] MEDS ORDERED: POLYETHYLENE GLYCOL (HEALTHYLAX) 3350 17 GM PACKET PO PRN (05:03)
[2023-09-23] MEDS ORDERED: BENZONATATE 200 MG CAPSULE PO PRN (05:03)
[2023-09-23] MEDS ORDERED: MAG HYDROX/AL HYDROX/SIMETH 30 ML UNIT-DOSE CUP PO PRN (05:03)
[2023-09-23] MEDS ORDERED: NALOXONE HCL 0.4 MG/ML VIAL IM PRN (05:03)
[2023-09-23] MEDS ORDERED: IBUPROFEN 400 MG TABLET (FP) PO PRN (05:03)
[2023-09-23] MEDS ORDERED: ACETAMINOPHEN 325 MG TABLET (FP) PO PRN (05:03)
[2023-09-23] MEDS ORDERED: NALOXONE HCL (KLOXXADO) 8 MG SPRAY NS PRN (05:03)
[2023-09-23] MEDS ORDERED: methaDONE HCL 10 MG TABLET PO SCH (07:30)
[2023-09-23] MEDS: METHADONE PO SCH (08:22)
[2023-09-23] MEDS: NICOTINE 14 MG/24 HOURS TOPICAL PATCH TD SCH (10:39)
[2023-09-23] MEDS: PRENATAL VITAMINS W/ FOLIC ACID TABLET (FP) PO SCH (10:39)
[2023-09-23 14:59] LABS: HEMATOCRIT 33.7 % (35.4-49); HEMOGLOBIN 10.8 GM/dL (11.7-16.9); MCH 25.9 pg (25.7-33.7); MCHC 32.2 g/dl (32.0-35.9); MEAN CELL VOLUME 80.4 fl (80-96); MEAN PLT VOLUME 7.6 fl (7.5-11.1); PLATELET COUNT 204 10^3/uL (134-434); RBC 4.19 M/mm3 (4.00-5.60); RDW 16.7 % (11.9-15.9); WHITE BLOOD COUNT 7.5 K/mm3 (4.0-10.0)
[2023-09-23 15:07] LABS: CHLORIDE 106 mmol/L (98-107); SODIUM 137 mmol/L (136-145)
[2023-09-23 15:15] LABS: CALCIUM 8.6 mg/dL (8.5-10.1)
[2023-09-23 15:16] LABS: ALBUMIN 3.3 g/dl (3.4-5.0); ANION GAP 0 mmol/L (4-13); BLOOD UREA NITROGEN 19.8 mg/dL (7-18); CO2 30 mmol/L (21-32); GLUCOSE,RANDOM 83 mg/dL (74-106)
[2023-09-23 15:19] LABS: CREATININE 1.1 mg/dL (0.55-1.3); SGOT/AST 78 U/L (15-37); SGPT/ALT 28 U/L (13-61)
[2023-09-23 15:21] LABS: BILIRUBIN,TOTAL 0.2 mg/dL (0.2-1); TOT PROT 6.7 g/dl (6.4-8.2)
[2023-09-23 15:23] LABS: ALK PHOS 87 U/L (45-117)
[2023-09-23 15:26] LABS: SYPHILIS W/ RPR CONF NON-REACTIVE (NONREACTIVE)
[2023-09-23] MEDS: THIAMINE HCL 100 MG TABLET (FP) PO SCH (22:47)
[2023-09-23] MEDS: MELATONIN 5 MG TABLETS PO SCH (22:48)
[2023-09-25] MEDS: NICOTINE 14 MG/24 HOURS TOPICAL PATCH TD SCH (10:34)
[2023-09-25] MEDS: PRENATAL VITAMINS W/ FOLIC ACID TABLET (FP) PO SCH (10:35)
[2023-09-26] MEDS: METHADONE PO SCH (06:31)
[2023-09-26 13:56] LABS: PH,URINE 6.5 (5.0-8.0); URINE APPEARANCE CLEAR; URINE BILIRUBIN NEGATIVE (NEGATIVE); URINE COLOR YELLOW; URINE GLUCOSE (UA) NEGATIVE (NEGATIVE); URINE KETONE NEGATIVE (NEGATIVE); URINE LEUK ESTERASE NEGATIVE (NEGATIVE); URINE NITRITE NEGATIVE (NEGATIVE); URINE PROTEIN NEGATIVE (NEGATIVE); URINE UROBILINOGEN 0.2 mg/dL (0.2-1.0)
[2023-10-03 08:02] VITALS: BP 118/68; PULSE 74; RESP 20; TEMP 97.3
== END 2023-10-03 10:07 | disposition home or self-care (01) | DRG 772 ==
LOC: YASAS 03:29 → Y3NR 05:21 → Y3W 09-25 11:15
PROVIDERS: ADMIT Allergy & Immunology; ATTEND Psychiatry & Neurology Pain Medicine
PROC: HZ42ZZZ Group Counseling for Substance Abuse Treatment, Cognitive-Behavioral (ICD-10-PCS; principal; 2023-09-23)
DX: F11.20 Opioid dependence, uncomplicated (principal); F14.20 Cocaine dependence, uncomplicated; F16.20 Hallucinogen dependence, uncomplicated; F17.210 Nicotine dependence, cigarettes, uncomplicated; F19.24 Other psychoactive substance dependence with psychoactive substance-induced mood disorder; I10 Essential (primary) hypertension; Z86.19 Personal history of other infectious and parasitic diseases; Z59.00 Homelessness unspecified
CPT/HCPCS: 36415; 80053; 80305; 80307; 81003; 85027; 86780; 86803; 93005; 93010

== ENCOUNTER 2024-06-17 13:59 | Inpatient (IN) | payer OTHER ==
[2024-06-17 15:22] VITALS: BMI 22.5
[2024-06-17] MEDS ORDERED: IBUPROFEN 400 MG TABLET (FP) PO PRN (16:53)
[2024-06-17] MEDS ORDERED: guaiFENesin 600 MG TABLET.ER (FP) PO PRN (16:53)
[2024-06-17] MEDS ORDERED: BENZOCAINE/MENTHOL (CHLORASEPTIC ) LOZENGE MM PRN (16:53)
[2024-06-17] MEDS ORDERED: MAG HYDROX/AL HYDROX/SIMETH 30 ML UNIT-DOSE CUP PO PRN (16:53)
[2024-06-17] MEDS ORDERED: BENZONATATE 200 MG CAPSULE PO PRN (16:53)
[2024-06-17] MEDS ORDERED: ACETAMINOPHEN 325 MG TABLET (FP) PO PRN (16:53)
[2024-06-17] MEDS ORDERED: NALOXONE (NARCAN) HCL 4 MG/0.1 ML SPRAY NS PRN (16:53)
[2024-06-17] MEDS ORDERED: hydrOXYzine PAMOATE 25 MG CAPSULE (FP) PO PRN (16:53)
[2024-06-17] MEDS ORDERED: LOPERAMIDE HCL 2 MG CAPSULE PO PRN (16:53)
[2024-06-17] MEDS ORDERED: POLYETHYLENE GLYCOL (HEALTHYLAX) 3350 17 GM PACKET PO PRN (16:53)
[2024-06-17] MEDS ORDERED: MAGNESIUM HYDROX 2400MG/30ML ORAL SUSPENSION 30 ML CUP PO PRN (16:53)
[2024-06-17] MEDS ORDERED: IBUPROFEN 600 MG TABLET (FP) PO PRN (16:53)
[2024-06-17] MEDS: PERMETHRIN (NIX CREAM SCALP RINSE) 59 ML 1% BOTTLE TP ONE (23:54)
[2024-06-18] MEDS ORDERED: MELATONIN 5 MG TABLETS ONE (00:16)
[2024-06-18] MEDS: MELATONIN 5 MG TABLETS PO SCH (00:29)
[2024-06-18] MEDS: THIAMINE 100 MG TABLET PO SCH (00:29)
[2024-06-18] MEDS: DOXYCYCLINE HYCLATE 100 MG TABLET PO SCH (00:51)
[2024-06-18] MEDS ORDERED: methaDONE HCL 10 MG TABLET PO SCH (10:30)
[2024-06-18] MEDS: PRENATAL VITAMINS W/ FOLIC ACID TABLET (FP) PO SCH (10:52)
[2024-06-18] MEDS: VITAMINS A AND D TOPICAL OINTMENT TP SCH (10:53)
[2024-06-18 11:04] LABS: HEMOGLOBIN 10.7 GM/dL (11.7-16.9); MCH 25.2 pg (25.7-33.7); MCHC 30.6 g/dl (32.0-35.9); MEAN CELL VOLUME 82.5 fl (80-96); MEAN PLT VOLUME 7.7 fl (7.5-11.1); PLATELET COUNT 230 10^3/uL (134-434); RBC 4.24 M/mm3 (4.00-5.60); RDW 15.9 % (11.9-15.9)
[2024-06-18 11:06] LABS: CHLORIDE 104 mmol/L (98-107); POTASSIUM 4.1 mmol/L (3.5-5.1); SODIUM 143 mmol/L (136-145)
[2024-06-18 11:08] LABS: CALCIUM 8.8 mg/dL (8.5-10.1)
[2024-06-18 11:09] LABS: ALBUMIN 2.6 g/dl (3.4-5.0); ANION GAP 8 mmol/L (4-13); CO2 30 mmol/L (21-32); GLUCOSE,RANDOM 97 mg/dL (74-106)
[2024-06-18 11:12] LABS: CREATININE 1.7 mg/dL (0.55-1.3); SGOT/AST 20 U/L (15-37); SGPT/ALT 17 U/L (13-61)
[2024-06-18 11:14] LABS: BILIRUBIN,TOTAL 0.1 mg/dL (0.2-1); TOT PROT 6.1 g/dl (6.4-8.2)
[2024-06-18 11:15] LABS: ALK PHOS 82 U/L (45-117)
[2024-06-18 11:37] LABS: SYPHILIS W/ RPR CONF NON-REACTIVE (NONREACTIVE)
[2024-06-19 16:03] LABS: URINE APPEARANCE CLEAR; URINE BILIRUBIN NEGATIVE (NEGATIVE); URINE COLOR YELLOW; URINE GLUCOSE (UA) NEGATIVE (NEGATIVE); URINE KETONE TRACE (NEGATIVE); URINE LEUK ESTERASE NEGATIVE (NEGATIVE); URINE NITRITE NEGATIVE (NEGATIVE); URINE PROTEIN NEGATIVE (NEGATIVE); URINE UROBILINOGEN 0.2 mg/dL (0.2-1.0)
[2024-06-21] MEDS: PERMETHRIN 5% TOPICAL CREAM 60 GM TUBE TP ONE (14:02)
[2024-06-26] MEDS: methaDONE HCL 10 MG TABLET PO SCH (08:03)
[2024-06-30 05:39] VITALS: BP 137/73; PULSE 56; RESP 17; TEMP 97.5
[2024-06-30] MEDS: NALOXONE (NYS OPIOID OVERDOSE PROGRAM) 4 MG/0.1 ML SPRAY NS PRN (12:22)
== END 2024-06-30 13:12 | disposition home or self-care (01) | DRG 772 ==
LOC: YASAS 13:59 → Y3NR 23:46 → Y5N 06-18 15:46
PROVIDERS: ADMIT Psychiatry & Neurology Pain Medicine; ATTEND Psychiatry & Neurology Pain Medicine
PROC: HZ42ZZZ Group Counseling for Substance Abuse Treatment, Cognitive-Behavioral (ICD-10-PCS; principal; 2024-06-17)
DX: F11.20 Opioid dependence, uncomplicated (principal); F16.20 Hallucinogen dependence, uncomplicated; F17.210 Nicotine dependence, cigarettes, uncomplicated; U07.1 COVID-19; I10 Essential (primary) hypertension; B86 Scabies; L73.9 Follicular disorder, unspecified
CPT/HCPCS: 0241U-QW; 36415; 80053; 80307; 81003; 85027; 86780; 86803; 93005; 93010

== ENCOUNTER 2024-07-11 16:30 | Inpatient (IN) | payer OTHER ==
[2024-07-11 17:57] VITALS: BMI 24.3
[2024-07-11] MEDS ORDERED: LOPERAMIDE HCL 2 MG CAPSULE PO PRN (19:52)
[2024-07-11] MEDS ORDERED: BENZOCAINE/MENTHOL (CHLORASEPTIC ) LOZENGE MM PRN (19:52)
[2024-07-11] MEDS ORDERED: NALOXONE (NARCAN) HCL 4 MG/0.1 ML SPRAY NS PRN (19:52)
[2024-07-11] MEDS ORDERED: ACETAMINOPHEN 325 MG TABLET (FP) PO PRN (19:52)
[2024-07-11] MEDS ORDERED: NALOXONE HCL 0.4 MG/ML VIAL IVPUSH PRN (19:52)
[2024-07-11] MEDS ORDERED: BENZONATATE 200 MG CAPSULE PO PRN (19:52)
[2024-07-11] MEDS ORDERED: MAG HYDROX/AL HYDROX/SIMETH 30 ML UNIT-DOSE CUP PO PRN (19:52)
[2024-07-11] MEDS ORDERED: POLYETHYLENE GLYCOL (HEALTHYLAX) 3350 17 GM PACKET PO PRN (19:52)
[2024-07-11] MEDS ORDERED: guaiFENesin 600 MG TABLET.ER (FP) PO PRN (19:52)
[2024-07-11] MEDS ORDERED: P-EPHED 60MG/TRIPROLIDI 2.5MG TABLET PO PRN (19:52)
[2024-07-11] MEDS ORDERED: METHOCARBAMOL 500 MG TABLET PO PRN (19:52)
[2024-07-11] MEDS ORDERED: IBUPROFEN 600 MG TABLET (FP) PO PRN (19:52)
[2024-07-11] MEDS ORDERED: NICOTINE POLACRILEX 2 MG LOZENGE BC PRN (19:52)
[2024-07-11] MEDS ORDERED: IBUPROFEN 400 MG TABLET (FP) PO PRN (19:52)
[2024-07-11] MEDS ORDERED: MAGNESIUM HYDROX 2400MG/30ML ORAL SUSPENSION 30 ML CUP PO PRN (19:52)
[2024-07-11] MEDS ORDERED: NICOTINE POLACRILEX 2 MG GUM BUC PRN (19:52)
[2024-07-11] MEDS: MELATONIN 5 MG TABLETS PO SCH (23:11)
[2024-07-11] MEDS: THIAMINE 100 MG TABLET PO SCH (23:11)
[2024-07-12] MEDS ORDERED: methaDONE HCL 40 MG DISPERSABLE TABLET PO SCH (09:00)
[2024-07-12] MEDS: PRENATAL VITAMINS W/ FOLIC ACID TABLET (FP) PO SCH (09:32)
[2024-07-12 13:54] LABS: BASO % 0.2 % (0-2.0); EOS % 1.6 % (0-4.5); HEMATOCRIT 38.8 % (35.4-49); HEMOGLOBIN 12.3 GM/dL (11.7-16.9); MCH 25.7 pg (25.7-33.7); MCHC 31.6 g/dl (32.0-35.9); MEAN CELL VOLUME 81.2 fl (80-96); MEAN PLT VOLUME 7.2 fl (7.5-11.1); MONO % 12.3 % (3.8-10.2); NEUT % 60.9 % (42.8-82.8); PLATELET COUNT 276 10^3/uL (134-434); RBC 4.78 M/mm3 (4.00-5.60); RDW 16.1 % (11.9-15.9); WHITE BLOOD COUNT 7.3 K/mm3 (4.0-10.0)
[2024-07-12 16:00] LABS: POTASSIUM 4.9 mmol/L (3.5-5.1)
[2024-07-12 16:27] LABS: ALBUMIN 3.3 g/dl (3.4-5.0); BLOOD UREA NITROGEN 23.7 mg/dL (7-18); CALCIUM 9.9 mg/dL (8.5-10.1)
[2024-07-12 16:31] LABS: CREATININE 1.1 mg/dL (0.55-1.3)
[2024-07-12 16:32] LABS: BILIRUBIN,TOTAL 0.2 mg/dL (0.2-1); TOT PROT 7.2 g/dl (6.4-8.2)
[2024-07-16] MEDS: PRENATAL VITAMINS W/ FOLIC ACID TABLET (FP) PO PRN (09:58)
[2024-07-20] MEDS ORDERED: methaDONE HCL 40 MG DISPERSABLE TABLET PO SCH (06:00)
[2024-07-25 06:40] VITALS: BP 143/89; PULSE 61; RESP 18; TEMP 97.4
== END 2024-07-18 08:56 | disposition home or self-care (01) | DRG 772 ==
LOC: YASAS 16:30 → Y3NR 21:40 → Y3E 07-12 10:02
PROVIDERS: ADMIT Psychiatry & Neurology Pain Medicine; ATTEND Psychiatry & Neurology Pain Medicine
PROC: HZ42ZZZ Group Counseling for Substance Abuse Treatment, Cognitive-Behavioral (ICD-10-PCS; principal; 2024-07-11)
DX: F16.20 Hallucinogen dependence, uncomplicated (principal); F11.20 Opioid dependence, uncomplicated; F17.210 Nicotine dependence, cigarettes, uncomplicated; F19.24 Other psychoactive substance dependence with psychoactive substance-induced mood disorder; I10 Essential (primary) hypertension; Z86.16 Personal history of COVID-19; Z87.39 Personal history of other diseases of the musculoskeletal system and connective tissue
CPT/HCPCS: 36415; 80053; 80305; 80307; 85025; 87811

== ENCOUNTER 2024-09-01 13:11 | Inpatient (IN) | payer OTHER ==
[2024-09-01 14:01] VITALS: BMI 24.0
[2024-09-01] MEDS ORDERED: NALOXONE (NARCAN) HCL 4 MG/0.1 ML SPRAY NS PRN (14:15)
[2024-09-01] MEDS ORDERED: NICOTINE POLACRILEX 2 MG GUM BUC PRN (14:15)
[2024-09-01] MEDS ORDERED: BENZONATATE 200 MG CAPSULE PO PRN (14:15)
[2024-09-01] MEDS ORDERED: guaiFENesin 600 MG TABLET.ER (FP) PO PRN (14:15)
[2024-09-01] MEDS ORDERED: BENZOCAINE/MENTHOL (CHLORASEPTIC ) LOZENGE MM PRN (14:15)
[2024-09-01] MEDS ORDERED: P-EPHED 60MG/TRIPROLIDI 2.5MG TABLET PO PRN (14:15)
[2024-09-01] MEDS ORDERED: NICOTINE POLACRILEX 2 MG LOZENGE BC PRN (14:15)
[2024-09-01] MEDS ORDERED: ACETAMINOPHEN 325 MG TABLET (FP) PO PRN (14:15)
[2024-09-01] MEDS ORDERED: POLYETHYLENE GLYCOL (HEALTHYLAX) 3350 17 GM PACKET PO PRN (14:15)
[2024-09-01] MEDS: MELATONIN 5 MG TABLETS PO SCH (23:09)
[2024-09-01] MEDS: THIAMINE 100 MG TABLET PO SCH (23:09)
[2024-09-02] MEDS ORDERED: methaDONE HCL 10 MG TABLET PO SCH (08:30)
[2024-09-02] MEDS: PRENATAL VITAMINS W/ FOLIC ACID TABLET (FP) PO SCH (09:54)
[2024-09-02 11:28] LABS: HEMATOCRIT 35.2 % (35.4-49); HEMOGLOBIN 11.3 GM/dL (11.7-16.9); MCH 25.6 pg (25.7-33.7); MEAN CELL VOLUME 79.9 fl (80-96); MEAN PLT VOLUME 7.7 fl (7.5-11.1); PLATELET COUNT 210 10^3/uL (134-434); RBC 4.41 M/mm3 (4.00-5.60); RDW 16.5 % (11.9-15.9); WHITE BLOOD COUNT 5.8 K/mm3 (4.0-10.0)
[2024-09-02 12:29] LABS: POTASSIUM 4.4 mmol/L (3.5-5.1)
[2024-09-02 12:44] LABS: BLOOD UREA NITROGEN 19.7 mg/dL (7-18)
[2024-09-02 12:47] LABS: CREATININE 1.2 mg/dL (0.55-1.3)
[2024-09-02 12:48] LABS: BILIRUBIN,TOTAL 0.3 mg/dL (0.2-1); TOT PROT 6.2 g/dl (6.4-8.2)
[2024-09-03 20:44] LABS: URINE APPEARANCE CLEAR; URINE BILIRUBIN NEGATIVE (NEGATIVE); URINE COLOR YELLOW; URINE GLUCOSE (UA) NEGATIVE (NEGATIVE); URINE KETONE NEGATIVE (NEGATIVE); URINE LEUK ESTERASE NEGATIVE (NEGATIVE); URINE NITRITE NEGATIVE (NEGATIVE); URINE PROTEIN NEGATIVE (NEGATIVE); URINE UROBILINOGEN 0.2 mg/dL (0.2-1.0)
[2024-09-11] MEDS: MAG HYDROX/AL HYDROX/SIMETH 30 ML UNIT-DOSE CUP PO PRN (09:04)
[2024-09-11] MEDS ORDERED: PRENATAL VITAMINS W/ FOLIC ACID TABLET (FP) PO PRN (12:28)
[2024-09-11] MEDS: LOPERAMIDE HCL 2 MG CAPSULE PO PRN (18:15)
[2024-09-17] MEDS: MAGNESIUM HYDROX 2400MG/30ML ORAL SUSPENSION 30 ML CUP PO PRN (06:43)
[2024-09-17] MEDS ORDERED: BISACODYL 10 MG SUPP.RECT PR PRN (08:46)
[2024-09-17] MEDS: SODIUM PHOSPHATE/NA BIPHOS 133 ML ENEMA RC ONE (08:54)
[2024-09-17] MEDS: ONDANSETRON *ODT* 4 MG TABLET SL PRN (09:08)
[2024-09-17] MEDS ORDERED: methaDONE HCL 10 MG TABLET PO ONE (12:00)
[2024-09-24] MEDS: IBUPROFEN 600 MG TABLET (FP) PO PRN (06:10)
[2024-09-24] MEDS: IBUPROFEN 400 MG TABLET (FP) PO PRN (08:36)
[2024-09-24] MEDS ORDERED: BENZOCAINE 20 % GEL TUBE MM PRN (15:34)
[2024-09-24] MEDS: AMOX TR/POT CLAV 500MG/125MG TABLETS (FP) PO SCH (17:45)
[2024-09-30 07:39] VITALS: BP 154/76; PULSE 62; RESP 17; TEMP 97.8
== END 2024-09-30 09:42 | disposition home or self-care (01) | DRG 772 ==
LOC: YASAS 13:11 → Y3E 16:53
PROVIDERS: ADMIT Psychiatry & Neurology Pain Medicine; ATTEND Psychiatry & Neurology Pain Medicine
PROC: HZ42ZZZ Group Counseling for Substance Abuse Treatment, Cognitive-Behavioral (ICD-10-PCS; principal; 2024-09-01)
DX: F16.20 Hallucinogen dependence, uncomplicated (principal); F14.20 Cocaine dependence, uncomplicated; F11.10 Opioid abuse, uncomplicated; F17.210 Nicotine dependence, cigarettes, uncomplicated; F19.24 Other psychoactive substance dependence with psychoactive substance-induced mood disorder; I10 Essential (primary) hypertension; K02.9 Dental caries, unspecified; M10.9 Gout, unspecified; M19.90 Unspecified osteoarthritis, unspecified site; Z86.19 Personal history of other infectious and parasitic diseases
CPT/HCPCS: 36415; 80053; 80305; 80307; 81003; 85027; 86780; 87811; Q0162